=== PATIENT | male | born 1935 | race Caucasian/White ===

== ENCOUNTER 2018-10-02 09:08 | Emergency (ER) | payer OTHER, BC ==
[2018-10-02 10:10] LABS: Absolute Monocytes 1.2 K/uL (0.1-1.3); Absolute Neutrophil 8.4 K/uL (1.8-8.0); Basophils % 0.6 % (0-1.3); Eosinophils % 0.4 % (0-4.4); Hematocrit 40.7 % (39.6-49.0); Lymphocytes % 9.3 % (15.3-44.8); MPV 8.5 fL (7.6-11.3); Monocytes % 11.1 % (3.3-12.3); RBC Red Blood Cell Count 4.68 M/uL (4.33-5.43)
[2018-10-02] MEDS ORDERED: NA CHLORIDE 0.9% 1,000 ML ONE (10:24)
[2018-10-02 10:30] LABS: Albumin 3.1 g/dL (3.4-5.0); Bilirubin Direct 0.2 mg/dL (0-0.2); Bilirubin Total 0.9 mg/dL (0.2-1.0); Potassium 3.4 mmol/L (3.5-5.1); Protein, Total 6.2 g/dL (6.4-8.2)
[2018-10-02] MEDS ORDERED: NA CHLORIDE 0.9% 500 ML ONE (11:07)
--- NOTE | 2018-10-02 11:34 | RAD REPORT ---
EXAM DESCRIPTION: CT - Abdomen Pelvis W Contrast - 10/02/2018 11:01 am CLINICAL HISTORY: Abdominal pain with diarrhea COMPARISON: 2016 TECHNIQUE: Computed axial tomography of the abdomen pelvis was obtained. 100 cc Isovue-300 was admin istered intravenously. Oral contrast was not requested which limits evaluation of bowel. All CT scans are performed using dose optimization technique as appropriate and may include automated exposure control or mA/KV adjustment according to patient size. 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 Small hepatic cysts. The spleen, adrenals and right kidney are unremarkable. 13 millimeter low to intermediate density left renal mass slightly increased in size from the prior e xam in which it measured 12 millimeters Pancreatic tail is absent. 7 millimeter cystic mass within the pancreatic body is unchanged. . A tiny right inguinal hernia contains fat. The prostate gland is moderately enlarged. Postsurgical changes of a left inguinal hernia repair are seen. Minimal stranding adjacent to the sigmoid colon. Diverticulosis IMPRESSION: Minimal sigmoid diverticulosis Slight enlargement of a 13 millimeter left renal mass. Mass was previously shown to enhance. This may represent a cystic neoplasm. . Stable 7 millimeter cystic mass pancreas
--- NOTE | 2018-10-02 11:41 | ER ---
Nurse's Notes [facility] Name: Harsh Crowley Age: 83 yrs Sex: Male : 1935 Arrival Date: 10/02/2018 Time: 09:10 Bed 18 Private MD: Dinorah Lacy C Diagnosis: Diarrhea, unspecified;Dehydration Presentation: 10/02 09:19 Presenting complaint: Patient states: diarrhea for a while, was seen at Dr. Cedeño's iw office , had labs and stool sample drawn, still having diarrhea, not eating much, feeling worse. Transition of care: patient was not received from another setting of care. Onset of symptoms was September 10, 2018. Risk Assessment: Do you want to hurt yourself or someone else? Patient reports no desire to harm self or others. Initial Sepsis Screen: Does the patient meet any 2 criteria? No. Patient's initial sepsis screen is negative. Does the patient have a suspected source of infection? No. Patient's initial sepsis screen is negative. Care prior to arrival: None. 09:19 Method Of Arrival: Ambulatory iw 09:19 Acuity: KRISTEN 3 iw 09:24 Note was started on antibiotics. iw Triage Assessment: 09:28 General: Appears in no apparent distress. comfortable, slender, Behavior is bp cooperative, appropriate for age, anxious. Pain: Denies pain. EENT: No deficits noted. Neuro: Level of Consciousness is awake, alert, obeys commands, Oriented to Appropriate for age. Cardiovascular: No deficits noted. Respiratory: Airway is patent Respiratory effort is even, unlabored, Respiratory pattern is regular, symmetrical. GI: Reports diarrhea. : No signs and/or symptoms were reported regarding the genitourinary system. Derm: No deficits noted. Musculoskeletal: Circulation, motion, and sensation intact. Range of motion: intact in all extremities. Historical: - Allergies: 09:23 Prevacid; iw - Home Meds: 09:23 losartan-hydrochlorothiazide 50-12.5 mg oral tab 1 tab once daily [Active]; carvedilol iw 6.25 mg Oral tab 1 tab 2 times per day [Active]; amlodipine oral 5mg NEEDED if Systolic B.P is over 150 [Active]; alprazolam 0.25 mg Oral tab 1 tab QHS [Active]; Ocuvite Adult +50 1 Capsule daily Oral [Active]; famotidine 40 mg Oral tab 1 tab once daily [Active]; Claritin 10 mg Oral tab 1 tab once daily [Active]; - PMHx: 09:23 Anxiety; GERD; Hypertension; iw - PSHx: 09:23 Hernia repair; Tonsillectomy; prostate; iw - Immunization history:: Adult Immunizations up to date. - Social history:: Smoking status: Patient/guardian denies using tobacco. - Ebola Screening: : Patient negative for fever greater than or equal to 101.5 degrees Fahrenheit, and additional compatible Ebola Virus Disease symptoms Patient denies exposure to infectious person Patient denies travel to an Ebola-affected area in the 21 days before illness onset No symptoms or risks identified at this time. Screenin:30 Abuse screen: Denies threats or abuse. Denies injuries from another. Nutritional bp screening: No deficits noted. Tuberculosis screening: No symptoms or risk factors identified. Fall Risk None identified. Assessment: 09:32 General: SEE TRIAGE NOTE. bp 10:24 Reassessment: IVF INFUSING, LAB RESULTS PENDING. bp 10:57 Reassessment: PT TO CT WITH TARE WORKER. bp 12:13 Reassessment: PT D/C HOME AMBULATORY WITH FAMILY, DX WITH DIARRHEA. bp Vital Signs: 09:23 BP 124 / 63; Pulse 66; Resp 16; Temp 98.4; Pulse Ox 96% on R/A; Weight 57.15 kg; Height iw 5 ft. 9 in. (175.26 cm); Pain 0/10; 10:24 BP 116 / 56; Pulse 66; Resp 14; Pulse Ox 99% ; bp 11:33 BP 107 / 47; Pulse 71; Resp 17; Temp 98.7(TE); Pulse Ox 98% on R/A; mh5 12:13 BP 107 / 52; Pulse 65; Resp 16; Temp 98; Pulse Ox 98% ; bp 09:23 Body Mass Index 18.61 (57.15 kg, 175.26 cm) iw ED Course: 09:10 Patient arrived in ED. as 09:10 Dinorah Lacy MD is Private Physician. as 09:21 Triage completed. iw 09:23 Arm band placed on. iw 09:26 Elías Hernandez RN is Primary Nurse. bp 09:30 Darrion Wisdom MD is Attending Physician. gs 09:30 Patient has correct armband on for positive identification. Bed in low position. Call bp light in reach. Side rails up X2. 10:04 Inserted saline lock: 20 gauge in right forearm, using aseptic technique. Blood bp collected. 11:02 CT completed. Patient tolerated procedure well. Patient moved back from CT. bq 11:04 CT Abd/Pelvis - IV Contrast Only In Process Unspecified. EDMS 12:14 No provider procedures requiring assistance completed. IV discontinued, intact, bp bleeding controlled, No redness/swelling at site. Pressure dressing applied. Administered Medications: 10:10 Drug: NS 0.9% 1000 ml Route: IV; Rate: 1 bolus; Site: right forearm; bp 12:14 Follow up: IV Status: Completed infusion; IV Intake: 1000ml bp 10:45 Drug: NS 0.9% 500 ml Route: IV; Rate: bolus; Site: right forearm; bp 12:15 Follow up: IV Status: Completed infusion; IV Intake: 500ml bp Intake: 12:14 IV: 1000ml; Total: 1000ml. bp 12:15 IV: 500ml; Total: 1500ml. bp Outcome: 11:40 Discharge ordered by . gs 12:14 Discharged to home ambulatory, with family. bp 12:14 Condition: stable 12:14 Discharge instructions given to patient, Instructed on discharge instructions, follow up and referral plans. Demonstrated understanding of instructions, follow-up care. 12:15 Patient left the ED. bp Signatures: Dispatcher [employer] EDMS Gayle Garcia Amelia as Williams, Irene, RN RN iw Martinez, [facility] Darrion Wisdom MD MD gs Peltier, Brian, RN RN bp
--- NOTE | 2018-10-02 11:41 | EDPHYS ---
Physician Documentation [facility] Name: Harsh Crowley Age: 83 yrs Sex: Male : 1935 Arrival Date: 10/02/2018 Time: 09:10 Bed 18 Private MD: Dinorah Lacy C ED Physician Darrion Wisdom HPI: 10/02 12:59 This 83 yrs old Male presents to ER via Ambulatory with complaints of gs Diarrhea. 12:59 The patient presents to the emergency department with diarrhea. Onset: The gs symptoms/episode began/occurred 3 week(s) ago, and became persistent. Possible causes: unknown. The symptoms are aggravated by nothing. The symptoms are alleviated by nothing. Associated signs and symptoms: Pertinent negatives: constipation, fever, GI bleeding, vomiting. Severity of symptoms: At their worst the symptoms were severe in the emergency department the symptoms are unchanged. The patient has not experienced similar symptoms in the past. The patient has been recently seen by a physician: Dr. regalado with similar presenting complaints, was given a prescription for antibiotics. Historical: - Allergies: 09: Prevacid; iw - Home Meds: : losartan-hydrochlorothiazide 50-12.5 mg oral tab 1 tab once daily [Active]; carvedilol iw 6.25 mg Oral tab 1 tab 2 times per day [Active]; amlodipine oral 5mg NEEDED if Systolic B.P is over 150 [Active]; alprazolam 0.25 mg Oral tab 1 tab QHS [Active]; Ocuvite Adult +50 1 Capsule daily Oral [Active]; famotidine 40 mg Oral tab 1 tab once daily [Active]; Claritin 10 mg Oral tab 1 tab once daily [Active]; - PMHx: 09: Anxiety; GERD; Hypertension; iw - PSHx: 09:23 Hernia repair; Tonsillectomy; prostate; iw - Immunization history:: Adult Immunizations up to date. - Social history:: Smoking status: Patient/guardian denies using tobacco. - Ebola Screening: : Patient negative for fever greater than or equal to 101.5 degrees Fahrenheit, and additional compatible Ebola Virus Disease symptoms Patient denies exposure to infectious person Patient denies travel to an Ebola-affected area in the 21 days before illness onset No symptoms or risks identified at this time. ROS: 12:59 All other systems are negative. gs Exam: 12:59 Head/Face: Normocephalic, atraumatic. Eyes: Pupils equal round and reactive to light, gs extra-ocular motions intact. Lids and lashes normal. Conjunctiva and sclera are non-icteric and not injected. Cornea within normal limits. Periorbital areas with no swelling, redness, or edema. ENT: Nares patent. No nasal discharge, no septal abnormalities noted. Tympanic membranes are normal and external auditory canals are clear. Oropharynx with no redness, swelling, or masses, exudates, or evidence of obstruction, uvula midline. Mucous membranes moist. Neck: Trachea midline, no thyromegaly or masses palpated, and no cervical lymphadenopathy. Supple, full range of motion without nuchal rigidity, or vertebral point tenderness. No Meningismus. Chest/axilla: Normal chest wall appearance and motion. Nontender with no deformity. No lesions are appreciated. Cardiovascular: Regular rate and rhythm with a normal S1 and S2. No gallops, murmurs, or rubs. Normal PMI, no JVD. No pulse deficits. Respiratory: Lungs have equal breath sounds bilaterally, clear to auscultation and percussion. No rales, rhonchi or wheezes noted. No increased work of breathing, no retractions or nasal flaring. Abdomen/GI: Soft, non-tender, with normal bowel sounds. No distension or tympany. No guarding or rebound. No evidence of tenderness throughout. Back: No spinal tenderness. No costovertebral tenderness. Full range of motion. Skin: Warm, dry with normal turgor. Normal color with no rashes, no lesions, and no evidence of cellulitis. MS/ Extremity: Pulses equal, no cyanosis. Neurovascular intact. Full, normal range of motion. Neuro: Awake and alert, GCS 15, oriented to person, place, time, and situation. Cranial nerves II-XII grossly intact. Motor strength 5/5 in all extremities. Sensory grossly intact. Cerebellar exam normal. Normal gait. 12:59 Constitutional: The patient appears alert, awake. Vital Signs: 09:23 BP 124 / 63; Pulse 66; Resp 16; Temp 98.4; Pulse Ox 96% on R/A; Weight 57.15 kg; Height iw 5 ft. 9 in. (175.26 cm); Pain 0/10; 10:24 BP 116 / 56; Pulse 66; Resp 14; Pulse Ox 99% ; bp 11:33 BP 107 / 47; Pulse 71; Resp 17; Temp 98.7(TE); Pulse Ox 98% on R/A; mh5 12:13 BP 107 / 52; Pulse 65; Resp 16; Temp 98; Pulse Ox 98% ; bp 09:23 Body Mass Index 18.61 (57.15 kg, 175.26 cm) iw MDM: 09:50 Patient medically screened. gs 12:59 Differential diagnosis: gastritis, viral gastroenteritis, gastroenteritis. Data gs reviewed: vital signs, nurses notes. Counseling: I had a detailed discussion with the patient and/or guardian regarding: the historical points, exam findings, and any diagnostic results supporting the discharge/admit diagnosis, lab results, radiology results, the need for outpatient follow up, a director diabetes. Response to treatment: the patient's symptoms have markedly improved after treatment, patient is well hydrated. and as a result, I will discharge patient. 10/02 09:50 Order name: Basic Metabolic Panel; Complete Time: 10:37 10/02 09:50 Order name: CBC with Diff; Complete Time: 10:37 10/02 09:50 Order name: Hepatic Function; Complete Time: 10:37 10/02 09:50 Order name: Lipase; Complete Time: 10:37 10/02 10:38 Order name: CT Abd/Pelvis - IV Contrast Only; Complete Time: 11:36 10/02 09:50 Order name: IV Saline Lock; Complete Time: 10:05 10/02 09:50 Order name: Labs collected and sent; Complete Time: 10:06 Administered Medications: 10:10 Drug: NS 0.9% 1000 ml Route: IV; Rate: 1 bolus; Site: right forearm; bp 12:14 Follow up: IV Status: Completed infusion; IV Intake: 1000ml bp 10:45 Drug: NS 0.9% 500 ml Route: IV; Rate: bolus; Site: right forearm; bp 12:15 Follow up: IV Status: Completed infusion; IV Intake: 500ml bp Disposition: 10/02/18 11:40 Discharged to Home. Impression: Diarrhea, unspecified, Dehydration. - Condition is Stable. - Discharge Instructions: Diarrhea, Adult, Rehydration, Adult. - Medication Reconciliation Form, Thank You Letter, Antibiotic Education, Prescription Opioid Use form. - Follow up: Private Physician; When: 1 - 2 days; Reason: Re-evaluation by your physician. Signatures: Dispatcher [employer] Elda Linn, RN RN iw Darrion Wisdom MD MD gs Elías Hernandez RN RN bp Corrections: (The following items were deleted from the chart) 11:41 11:40 10/02/2018 11:40 Discharged to Home. Impression: Diarrhea, unspecified. Condition gs is Stable. Forms are Medication Reconciliation Form, Thank You Letter, Antibiotic Education, Prescription Opioid Use. Follow up: Private Physician; When: 1 - 2 days; Reason: Re-evaluation by your physician. gs 12:15 11:41 10/02/2018 11:40 Discharged to Home. Impression: Diarrhea, unspecified; bp Dehydration. Condition is Stable. Discharge Instructions: Diarrhea, Adult, Rehydration, Adult. Forms are Medication Reconciliation Form, Thank You Letter, Antibiotic Education, Prescription Opioid Use. Follow up: Private Physician; When: 1 - 2 days; Reason: Re-evaluation by your physician. gs
[2018-10-02 12:27] VITALS: O2SAT 98
[2018-10-02 12:28] VITALS: BP 107/52; TEMP 98
== END 2018-10-02 12:15 | disposition home or self-care (01) ==
LOC: ER 09:08
DX: E86.0 Dehydration (principal); I10 Essential (primary) hypertension; F41.9 Anxiety disorder, unspecified; K21.9 Gastro-esophageal reflux disease without esophagitis; Z88.8 Allergy status to other drugs, medicaments and biological substances
CPT/HCPCS: 96361; 85025; 80048; 36415; 80076; 83690; 74177; 96360; 99284; Q9967; J7030

== ENCOUNTER 2018-10-04 01:38 | Emergency (ER) | payer OTHER, BC ==
[2018-10-04] MEDS ORDERED: METHYLPREDNISOLONE 125 MG INJ ONE (02:21)
[2018-10-04] MEDS ORDERED: DIPHENHYDRAMINE 50 MG/ML VIAL ONE (02:21)
[2018-10-04] MEDS ORDERED: FAMOTIDINE 20 MG/2 ML VIAL IV ONE (02:21)
--- NOTE | 2018-10-04 02:27 | EDPHYS ---
Physician Documentation [facility] Name: Harsh Crowley Age: 83 yrs Sex: Male : 1935 Arrival Date: 10/04/2018 Time: 01:40 Bed 14 Private MD: Nasim Lacy ED Physician Darrion Wisdom HPI: 10/04 01:53 This 83 yrs old Male presents to ER via Ambulatory with complaints of jr8 Allergic Reaction. 01:53 The patient presents with itching, rash, redness of skin. Onset: The symptoms/episode jr8 began/occurred acutely, today. Associated signs and symptoms: The patient has no apparent associated signs or symptoms. Possible causes: antibiotics, Vancomycin . Severity of symptoms: At their worst the symptoms were mild in the emergency department the symptoms are unchanged. The patient has not experienced similar symptoms in the past. The patient has been recently seen by a physician:. Patient started on Vancomycin PO for C-Diff infection. Stated that he took first pill at 8 pm tonight and then went to bed. Woke up at 1 am itching, tossing, and turning. Went to check to see what was wrong and noticed red rash to body. Historical: - Allergies: 01:52 Prevacid; ak1 01:52 Vancomycin; ak1 - Home Meds: 01:52 alprazolam 0.25 mg Oral tab 1 tab QHS [Active]; amlodipine oral 5mg NEEDED if ak1 Systolic B.P is over 150 [Active]; Ocuvite Adult +50 1 Capsule daily Oral [Active]; losartan-hydrochlorothiazide 50-12.5 mg Oral tab 1 tab once daily [Active]; famotidine 40 mg Oral tab 1 tab once daily [Active]; Claritin 10 mg Oral tab 1 tab once daily [Active]; carvedilol 6.25 mg Oral tab 1 tab 2 times per day [Active]; - PMHx: 01:52 Anxiety; GERD; Hypertension; C-DIFF; ak1 - PSHx: 01:52 Hernia repair; Tonsillectomy; prostate; ak1 - Immunization history:: Adult Immunizations unknown. - Social history:: Smoking status: Patient/guardian denies using tobacco. - Ebola Screening: : No symptoms or risks identified at this time No symptoms or risks identified at this time. ROS: 01:53 Constitutional: Negative for fever, chills, and weight loss. jr8 01:53 Respiratory: Negative for cough, dyspnea on exertion, shortness of breath, wheezing. 01:53 Skin: Positive for rash. 01:53 All other systems are negative. Exam: 01:53 Eyes: Pupils equal round and reactive to light, extra-ocular motions intact. Lids and jr8 lashes normal. Conjunctiva and sclera are non-icteric and not injected. Cornea within normal limits. Periorbital areas with no swelling, redness, or edema. ENT: Nares patent. No nasal discharge, no septal abnormalities noted. Tympanic membranes are normal and external auditory canals are clear. Oropharynx with no redness, swelling, or masses, exudates, or evidence of obstruction, uvula midline. Mucous membranes moist. Neck: Trachea midline, no thyromegaly or masses palpated, and no cervical lymphadenopathy. Supple, full range of motion without nuchal rigidity, or vertebral point tenderness. No Meningismus. Cardiovascular: Regular rate and rhythm with a normal S1 and S2. No gallops, murmurs, or rubs. Normal PMI, no JVD. No pulse deficits. Respiratory: Lungs have equal breath sounds bilaterally, clear to auscultation and percussion. No rales, rhonchi or wheezes noted. No increased work of breathing, no retractions or nasal flaring. Abdomen/GI: Soft, non-tender, with normal bowel sounds. No distension or tympany. No guarding or rebound. No evidence of tenderness throughout. Back: No spinal tenderness. No costovertebral tenderness. Full range of motion. MS/ Extremity: Pulses equal, no cyanosis. Neurovascular intact. Full, normal range of motion. Neuro: Awake and alert, GCS 15, oriented to person, place, time, and situation. Cranial nerves II-XII grossly intact. Motor strength 5/5 in all extremities. Sensory grossly intact. Cerebellar exam normal. Normal gait. 01:53 Skin: rash a mild rash is noted, rash can be described as erythematous, macular, urticarial, and is diffusely located. Vital Signs: 01:48 BP 126 / 60; Pulse 77; Resp 18; Temp 98.1; Pulse Ox 95% on R/A; Weight 68.04 kg (R); ak1 Height 5 ft. 9 in. (175.26 cm) (R); Pain 0/10; 02:45 BP 106 / 55; Pulse 68; Resp 18; Pulse Ox 98% on R/A; ea 01:48 Body Mass Index 22.15 (68.04 kg, 175.26 cm) ak1 MDM: 01:51 Patient medically screened. jr8 01:53 Data reviewed: vital signs, nurses notes, and as a result, I will discharge patient. jr8 Data interpreted: Pulse oximetry: on room air is 95 %. Interpretation: normal. Counseling: I had a detailed discussion with the patient and/or guardian regarding: the historical points, exam findings, and any diagnostic results supporting the discharge/admit diagnosis, the need for outpatient follow up, a family practitioner, a ctrs, to return to the emergency department if symptoms worsen or persist or if there are any questions or concerns that arise at home. Response to treatment: the patient's symptoms have markedly improved after treatment. 10/04 01:52 Order name: IV; Complete Time: :29 jr8 Administered Medications: 02:00 Drug: Pepcid 20 mg Route: IVP; Site: right antecubital; ea 02:31 Follow up: Response: No adverse reaction ea 02:00 Drug: Benadryl 25 mg Route: IVP; Site: right antecubital; ea 02:31 Follow up: Response: No adverse reaction; Other; Pt reports itching has decreased ea 02:29 Drug: SOLU-Medrol 125 mg Route: IVP; Site: right antecubital; ea 02:31 Follow up: Response: No adverse reaction ea Disposition: 10/04/18 02:26 Discharged to Home. Impression: Allergic Reaction. - Condition is Stable. - Discharge Instructions: Drug Allergy. - Prescriptions for Prednisone 20 mg Oral Tablet - take 1 tablet by ORAL route once daily for 5 days; 5 tablet. - Medication Reconciliation Form, Thank You Letter, Antibiotic Education, Prescription Opioid Use form. - Follow up: Nasim Lacy; When: Tomorrow; Reason: Recheck today's complaints, Continuance of care, Re-evaluation by your physician. - Problem is new. - Symptoms have improved. Addendum: 10/06/2018 13:03 Co-signature as Attending Physician, Darrion Wisdom MD. g s Signatures: Armando Alcocer PA PA jr8 Sade Kurtz, RN RN ak1 Ellie Parisi RN RN Darrion Cho MD MD gs Corrections: (The following items were deleted from the chart) 10/04 03:14 02:26 10/04/2018 02:26 Discharged to Home. Impression: Allergic Reaction. Condition is ea Stable. Discharge Instructions: Drug Allergy. Prescriptions for Prednisone 20 mg Oral Tablet - take 1 tablet by ORAL route once daily for 5 days; 5 tablet. and Forms are Medication Reconciliation Form, Thank You Letter, Antibiotic Education, Prescription Opioid Use. Follow up: Nasim Lacy; When: Tomorrow; Reason: Recheck today's complaints, Continuance of care, Re-evaluation by your physician. Problem is new. Symptoms have improved. jr8
--- NOTE | 2018-10-04 02:27 | ER ---
Nurse's Notes [facility] Name: Harsh Crowley Age: 83 yrs Sex: Male : 1935 Arrival Date: 10/04/2018 Time: 01:40 Bed 14 Private MD: Nasim Lacy Diagnosis: Allergic Reaction Presentation: 10/04 01:49 Presenting complaint: Patient states: took vancomycin at [address] Ornelas's PA. pt ak1 woke at 0100 with itching and redness, rash to arms, back, legs. Transition of care: patient was not received from another setting of care. Onset: The symptoms/episode began/occurred just prior to arrival. Anaphylaxis evaluation, no signs or symptoms of anaphylaxis were noted. Onset of symptoms was October 04, 2018 at 01:00. Risk Assessment: Do you want to hurt yourself or someone else? Patient reports no desire to harm self or others. Initial Sepsis Screen: Does the patient meet any 2 criteria? No. Patient's initial sepsis screen is negative. Does the patient have a suspected source of infection? No. Patient's initial sepsis screen is negative. Care prior to arrival: None. 01:49 Method Of Arrival: Ambulatory ak1 01:49 Acuity: KRISTEN 3 ak1 Triage Assessment: 01:52 General: Appears in no apparent distress. Behavior is calm, cooperative. ak1 Historical: - Allergies: 01:52 Prevacid; ak1 01:52 Vancomycin; ak1 - Home Meds: 01:52 alprazolam 0.25 mg Oral tab 1 tab QHS [Active]; amlodipine oral 5mg NEEDED if ak1 Systolic B.P is over 150 [Active]; Ocuvite Adult +50 1 Capsule daily Oral [Active]; losartan-hydrochlorothiazide 50-12.5 mg Oral tab 1 tab once daily [Active]; famotidine 40 mg Oral tab 1 tab once daily [Active]; Claritin 10 mg Oral tab 1 tab once daily [Active]; carvedilol 6.25 mg Oral tab 1 tab 2 times per day [Active]; - PMHx: 01:52 Anxiety; GERD; Hypertension; C-DIFF; ak1 - PSHx: 01:52 Hernia repair; Tonsillectomy; prostate; ak1 - Immunization history:: Adult Immunizations unknown. - Social history:: Smoking status: Patient/guardian denies using tobacco. - Ebola Screening: : No symptoms or risks identified at this time No symptoms or risks identified at this time. Screenin:50 Abuse screen: Denies threats or abuse. Nutritional screening: No deficits noted. ea Tuberculosis screening: No symptoms or risk factors identified. Fall Risk None identified. Assessment: 01:49 General: Appears uncomfortable, Behavior is calm, cooperative, appropriate for age. ea Pain: Denies pain. Neuro: Level of Consciousness is awake, alert, obeys commands, Oriented to person, place, time, situation. Cardiovascular: Patient's skin is warm and dry. Respiratory: Airway is patent Respiratory effort is even, unlabored, Respiratory pattern is regular, symmetrical. Derm: Rash noted that is urticaria. 01:55 Reassessment: Patient and/or family updated on plan of care and expected duration. Pain ea level reassessed. Patient is alert, oriented x 3, equal unlabored respirations, skin warm/dry/pink. Respiratory: Breath sounds are clear bilaterally. 02:30 Reassessment: Patient and/or family updated on plan of care and expected duration. Pain ea level reassessed. Patient is alert, oriented x 3, equal unlabored respirations, skin warm/dry/pink. Patient states feeling better. Patient states symptoms have improved. 03:10 Reassessment: Patient and/or family updated on plan of care and expected duration. Pain ea level reassessed. Patient is alert, oriented x 3, equal unlabored respirations, skin warm/dry/pink. Pt no longer has rash, denies itching. Discharge instruction given to patient, verbalized the understanding of instruction. Left ED ambulatory with spouse, pt tolerating well. Patient states feeling better. Patient states symptoms have improved. Vital Signs: 01:48 BP 126 / 60; Pulse 77; Resp 18; Temp 98.1; Pulse Ox 95% on R/A; Weight 68.04 kg (R); ak1 Height 5 ft. 9 in. (175.26 cm) (R); Pain 0/10; 02:45 BP 106 / 55; Pulse 68; Resp 18; Pulse Ox 98% on R/A; ea 01:48 Body Mass Index 22.15 (68.04 kg, 175.26 cm) ak1 ED Course: 01:40 Patient arrived in ED. am2 01:40 Lacy, Nasim, MD is Private Physician. am2 01:49 Ellie Parisi, DOMINGO is Primary Nurse. ea 01:50 Triage completed. ak1 01:51 Armando Alcocer [facility]. jr8 01:51 Darrion Wisdom MD is Attending Physician. jr8 01:51 Patient has correct armband on for positive identification. Bed in low position. Call ea light in reach. Side rails up X 1. 01:51 Arm band placed on Patient placed in an exam room, on a stretcher, on pulse oximetry. ea 02:00 Inserted saline lock: 20 gauge in right antecubital area, using aseptic technique. ea 02:26 Nasim Lacy MD is Referral Physician. jr8 03:00 No provider procedures requiring assistance completed. IV discontinued, intact, ea bleeding controlled, No redness/swelling at site. Pressure dressing applied. Administered Medications: 02:00 Drug: Pepcid 20 mg Route: IVP; Site: right antecubital; ea 02:31 Follow up: Response: No adverse reaction ea 02:00 Drug: Benadryl 25 mg Route: IVP; Site: right antecubital; ea 02:31 Follow up: Response: No adverse reaction; Other; Pt reports itching has decreased ea 02:29 Drug: SOLU-Medrol 125 mg Route: IVP; Site: right antecubital; ea 02:31 Follow up: Response: No adverse reaction ea Intake: Outcome: 02:26 Discharge ordered by MD. jr8 03:13 Discharged to home ambulatory, with significant other. ea 03:13 Condition: improved 03:13 Discharge instructions given to patient, Instructed on discharge instructions, follow up and referral plans. medication usage, Demonstrated understanding of instructions, follow-up care, medications, Prescriptions given X 1. 03:14 Patient left the ED. ea Signatures: Armando Alcocer PA PA jr8 aSde Kurtz RN DOMINGO [facility] Kim Ayon am2 Ellie Parisi RN RN ea
[2018-10-04 03:59] VITALS: TEMP 98.1
[2018-10-04 04:06] VITALS: BP 106/55; O2SAT 98
== END 2018-10-04 03:14 | disposition home or self-care (01) ==
LOC: ER 01:38
DX: T78.40XA Allergy, unspecified, initial encounter (principal); R21 Rash and other nonspecific skin eruption; Z88.1 Allergy status to other antibiotic agents; Z88.8 Allergy status to other drugs, medicaments and biological substances; F41.9 Anxiety disorder, unspecified; K21.9 Gastro-esophageal reflux disease without esophagitis; I10 Essential (primary) hypertension
CPT/HCPCS: 96375; 96374; 99284; J2930

== ENCOUNTER 2018-10-26 02:47 | Inpatient (IN) | payer OTHER, BC ==
[2018-10-26 04:20] LABS: Albumin 3.1 g/dL (3.4-5.0); Bilirubin Direct 0.3 mg/dL (0-0.2); Bilirubin Total 1.1 mg/dL (0.2-1.0); Potassium 3.5 mmol/L (3.5-5.1); Protein, Total 6.3 g/dL (6.4-8.2)
[2018-10-26 04:21] LABS: Absolute Lymphocytes (CBC) 1.1 K/uL (0.7-4.9); Basophils % 0.2 % (0-1.3); Eosinophils % 0.6 % (0-4.4); Hematocrit 40.6 % (39.6-49.0); Lymphocytes % 9.2 % (15.3-44.8); MPV 8.4 fL (7.6-11.3); Monocytes % 11.6 % (3.3-12.3); RBC Red Blood Cell Count 4.66 M/uL (4.33-5.43)
--- NOTE | 2018-10-26 05:48 | EDPHYS ---
Physician Documentation [facility] Name: Harsh Crowley Age: 83 yrs Sex: Male : 1935 Arrival Date: 10/26/2018 Time: 02:48 Bed 14 Private MD: ED Physician River Barnett HPI: 10/26 03:14 This 83 yrs old Male presents to ER via Ambulatory with complaints of rn Diarrhea. 03:14 The patient presents to the emergency department with diarrhea. Onset: The rn symptoms/episode began/occurred 2 day(s) ago. Possible causes: unknown. The symptoms are aggravated by nothing. The symptoms are alleviated by nothing. Severity of symptoms: At their worst the symptoms were moderate in the emergency department the symptoms are unchanged. The patient has experienced similar episodes in the past. Reports was having diarrhea, put on abx, told then by GI had cdiff, put on abx for cdiff, then told was clear after repeat testing, stopped abx, felt a little better, then began having non-bloody diarrhea again, called GI, told to eat potato soup which did not help. states she is concerned all began from stress when son had hemorrhagic stroke. Patient very anxious and already on benzo at night which does not seem to help. Has next GI appt in 1 week.. Historical: - Allergies: 03:04 Prevacid; ea 03:04 Vancomycin; ea - Home Meds: 03:04 alprazolam 0.25 mg Oral tab 1 tab QHS [Active]; amlodipine oral 5mg NEEDED if ea Systolic B.P is over 150 [Active]; carvedilol 6.25 mg Oral tab 1 tab 2 times per day [Active]; Claritin 10 mg Oral tab 1 tab once daily [Active]; famotidine 40 mg Oral tab 1 tab once daily [Active]; losartan-hydrochlorothiazide 50-12.5 mg Oral tab 1 tab once daily [Active]; Ocuvite Adult +50 1 Capsule daily Oral [Active]; - PMHx: 03:04 Hypertension; GERD; C-diff; Anxiety; ea - PSHx: 03:04 prostate; Tonsillectomy; Hernia repair; ea - Immunization history:: Adult Immunizations up to date. - Social history:: Smoking status: Patient/guardian denies using tobacco. - Ebola Screening: : No symptoms or risks identified at this time. - Family history:: not pertinent. - Hospitalizations: : No recent hospitalization is reported. ROS: 03:14 Constitutional: Negative for fever, chills, and weight loss, Eyes: Negative for injury, rn pain, redness, and discharge, Neck: Negative for injury, pain, and swelling, Cardiovascular: Negative for chest pain, palpitations, and edema, Respiratory: Negative for shortness of breath, cough, wheezing, and pleuritic chest pain, Abdomen/GI: Negative for abdominal pain, nausea, vomiting, and constipation, MS/Extremity: Negative for injury and deformity, Skin: Negative for injury, rash, and discoloration, Neuro: + generalized weakness Exam: 03:14 Constitutional: Thin male, appears anxious Head/Face: Normocephalic, atraumatic. rn Eyes: Pupils equal round and reactive to light, extra-ocular motions intact. Lids and lashes normal. Conjunctiva and sclera are non-icteric and not injected. Cornea within normal limits. Periorbital areas with no swelling, redness, or edema. ENT: dry MM Cardiovascular: tachycardic, regular, no murmur Respiratory: Lungs have equal breath sounds bilaterally, clear to auscultation Abdomen/GI: soft, non-tender MS/ Extremity: Pulses equal, no cyanosis. Neurovascular intact. Full, normal range of motion. Equal circumference. Neuro: Awake and alert, GCS 15, oriented to person, place, time, and situation. Cranial nerves II-XII grossly intact. Motor strength 5/5 in all extremities. Sensory grossly intact. Cerebellar exam normal. Normal gait. Vital Signs: 03:00 BP 117 / 80; Pulse 104; Resp 16; Temp 97.8; Pulse Ox 100% ; Weight 56.7 kg; Height 5 ea ft. 7 in. (170.18 cm); Pain 0/10; 04:24 BP 102 / 86; Pulse 106; Resp 18; Pulse Ox 97% on R/A; ea 05:28 BP 121 / 64; Pulse 84; Resp 18; Pulse Ox 95% ; ea 05:34 Temp 98.5(O); ea 06:52 BP 150 / 68; Pulse 83; Resp 18; Pulse Ox 96% ; ea 03:00 Body Mass Index 19.58 (56.70 kg, 170.18 cm) ea MDM: 02:55 Patient medically screened. rn 05:45 Differential diagnosis: colitis. Data reviewed: vital signs, nurses notes, lab test rn result(s), radiologic studies, CT scan, and as a result, I will admit patient. Counseling: I had a detailed discussion with the patient and/or guardian regarding: the historical points, exam findings, and any diagnostic results supporting the discharge/admit diagnosis, lab results, radiology results, the need for further work-up and treatment in the hospital. Response to treatment: the patient's symptoms have mildly improved after treatment, and as a result, I will admit patient. ED course: Pt with prolonged course of colitis, cdiff, s/p treatment, continues to have profuse and watery diarrhea with weakness, ct shows colitis of entire colon, + dehydration, will admit to Dr. Lacy. Will place consult for Dr. Cedeño as he has been the outpt GI for this patient through this ordeal.. 10/26 03:07 Order name: Creatinine for Radiology; Complete Time: 04:53 rn 10/26 03:07 Order name: Basic Metabolic Panel; Complete Time: 04:53 rn 10/26 03:07 Order name: CBC with Diff; Complete Time: 04:53 rn 10/26 03:07 Order name: Hepatic Function; Complete Time: 04:53 rn 10/26 03:07 Order name: Lipase; Complete Time: 04:53 rn 10/26 03:07 Order name: IV Saline Lock; Complete Time: 03:46 rn 10/26 03:07 Order name: Labs collected and sent; Complete Time: 03:46 rn 10/26 03:07 Order name: CT Abd/Pelvis - IV Contrast Only rn 10/26 05:45 Order name: CDIFF rn 10/26 05:45 Order name: Stool Culture rn 10/26 05:55 Order name: CONS Physician Consult EDMS Administered Medications: 03:20 Drug: NS 0.9% 1000 ml Route: IV; Rate: 1000 ml; Site: right forearm; ea 04:19 Follow up: Response: No adverse reaction; IV Status: Completed infusion; IV Intake: ea 1000ml Disposition: 10/26/18 05:48 Hospitalization ordered by Dinorah Lacy for Inpatient Admission. Preliminary diagnosis are Colitis, Dehydration, Weakness, Failure of outpatient therapy for colitis. - Bed requested for Telemetry/MedSurg (Inpatient). - Status is Inpatient Admission. sg - Condition is Stable. - Problem is an ongoing problem. - Symptoms have improved. UTI on Admission? No Signatures: Dispatcher [employer] EDMT Joy Austin RN RN mw Gay, Steven, RN RN sg Nieto, Roman, MD MD rn Antunez, Elena, RN RN ea Corrections: (The following items were deleted from the chart) 04:34 04:01 BASIC METABOLIC PANEL+C.LAB.BRZ ordered. [facility] 06:22 05:48 Hospitalization Ordered by A Regino THOMPSON for Inpatient Admission. Preliminary diagnosis is Colitis; Dehydration; Weakness; Failure of outpatient therapy for colitis. Bed requested for Telemetry/MedSurg (Inpatient). Status is Inpatient Admission. Condition is Stable. Problem is an ongoing problem. Symptoms have improved. UTI on Admission? No. rn 07:41 06:22 10/26/2018 05:48 Hospitalization Ordered by A Regino THOMPSON for Inpatient Admission. sg Preliminary diagnosis is Colitis; Dehydration; Weakness; Failure of outpatient therapy for colitis. Bed requested for Telemetry/MedSurg (Inpatient). Status is Inpatient Admission. Condition is Stable. Problem is an ongoing problem. Symptoms have improved. UTI on Admission? No. mw
--- NOTE | 2018-10-26 05:48 | ER ---
Nurse's Notes [facility] Name: Harsh Crowley Age: 83 yrs Sex: Male : 1935 Arrival Date: 10/26/2018 Time: 02:48 Bed 14 Private MD: Diagnosis: Colitis;Dehydration;Weakness;Failure of outpatient therapy for colitis Presentation: 10/26 03:06 Risk Assessment: Do you want to hurt yourself or someone else? Patient reports no ea desire to harm self or others. Initial Sepsis Screen: Does the patient meet any 2 criteria? HR > 90 bpm. Does the patient have a suspected source of infection? No. Patient's initial sepsis screen is negative. Care prior to arrival: None. 03:10 Presenting complaint: Patient states: Reports he has been having diarrhea one month ea prior to arrival due to Cdiff, pt reports that has been cleared but he continues to have diarrhea. reports she feels it may be stress related. Transition of care: patient was not received from another setting of care. Onset of symptoms was October 26, 2018. 03:10 Acuity: KRISTEN 3 ea 03:10 Method Of Arrival: Ambulatory ea Triage Assessment: 03:05 General: Appears in no apparent distress. Behavior is calm, cooperative, appropriate ea for age. Pain: Denies pain. GI: Parent/caregiver reports the patient having diarrhea. Historical: - Allergies: 03:04 Prevacid; ea 03:04 Vancomycin; ea - Home Meds: 03:04 alprazolam 0.25 mg Oral tab 1 tab QHS [Active]; amlodipine oral 5mg NEEDED if ea Systolic B.P is over 150 [Active]; carvedilol 6.25 mg Oral tab 1 tab 2 times per day [Active]; Claritin 10 mg Oral tab 1 tab once daily [Active]; famotidine 40 mg Oral tab 1 tab once daily [Active]; losartan-hydrochlorothiazide 50-12.5 mg Oral tab 1 tab once daily [Active]; Ocuvite Adult +50 1 Capsule daily Oral [Active]; - PMHx: 03:04 Hypertension; GERD; C-diff; Anxiety; ea - PSHx: 03:04 prostate; Tonsillectomy; Hernia repair; ea - Immunization history:: Adult Immunizations up to date. - Social history:: Smoking status: Patient/guardian denies using tobacco. - Ebola Screening: : No symptoms or risks identified at this time. - Family history:: not pertinent. - Hospitalizations: : No recent hospitalization is reported. Screenin:59 Abuse screen: Denies threats or abuse. Nutritional screening: No deficits noted. ea Tuberculosis screening: No symptoms or risk factors identified. Fall Risk None identified. Assessment: 03:06 General: Appears in no apparent distress. Behavior is calm, appropriate for age. Pain: ea Denies pain. Neuro: Level of Consciousness is awake, alert, obeys commands, Oriented to person, place, time, situation. Cardiovascular: Patient's skin is warm and dry. Respiratory: Airway is patent Respiratory effort is even, unlabored, Respiratory pattern is regular, symmetrical. GI: Abdomen is non-distended, Parent/caregiver reports the patient having diarrhea. : No signs and/or symptoms were reported regarding the genitourinary system. Derm: Skin is pink, warm \T\ dry. Musculoskeletal: Circulation, motion, and sensation intact. 04:26 Reassessment: Patient and/or family updated on plan of care and expected duration. Pain ea level reassessed. Patient is alert, oriented x 3, equal unlabored respirations, skin warm/dry/pink. Pt taken to CT. 05:09 Reassessment: Patient and/or family updated on plan of care and expected duration. Pain ea level reassessed. Patient is alert, oriented x 3, equal unlabored respirations, skin warm/dry/pink. Pt returned form CT. 05:45 Reassessment: Patient and/or family updated on plan of care and expected duration. Pain ea level reassessed. Patient is alert, oriented x 3, equal unlabored respirations, skin warm/dry/pink. Provider at bedside updating pt on plan of care. 06:50 Reassessment: Patient and/or family updated on plan of care and expected duration. Pain ea level reassessed. Patient is alert, oriented x 3, equal unlabored respirations, skin warm/dry/pink. Stool sample sent to lab. 07:20 Reassessment: Patient appears in no apparent distress at this time. Patient and/or sg family updated on plan of care and expected duration. Pain level reassessed. Patient is alert, oriented x 3, equal unlabored respirations, skin warm/dry/pink. pt reports having diarrhea this morning x 3, pt updated on attempt to call report but receiving nurse not available at this time, pt and pt family stated understanding. will continue to monitor Patient states feeling better. Vital Signs: 03:00 BP 117 / 80; Pulse 104; Resp 16; Temp 97.8; Pulse Ox 100% ; Weight 56.7 kg; Height 5 ea ft. 7 in. (170.18 cm); Pain 0/10; 04:24 BP 102 / 86; Pulse 106; Resp 18; Pulse Ox 97% on R/A; ea 05:28 BP 121 / 64; Pulse 84; Resp 18; Pulse Ox 95% ; ea 05:34 Temp 98.5(O); ea 06:52 BP 150 / 68; Pulse 83; Resp 18; Pulse Ox 96% ; ea 03:00 Body Mass Index 19.58 (56.70 kg, 170.18 cm) ea ED Course: 02:48 Patient arrived in ED. ds1 02:55 River Barnett MD is Attending Physician. rn 02:59 Ellie Parisi RN is Primary Nurse. ea 02:59 Patient has correct armband on for positive identification. Bed in low position. Call ea light in reach. Adult w/ patient. 03:00 Arm band placed on right wrist. Patient placed in an exam room, on a stretcher, on ea pulse oximetry. 03:12 Triage completed. ea 03:15 Inserted saline lock: 18 gauge in right forearm, using aseptic technique. Blood ea collected. 04:51 CT Abd/Pelvis - IV Contrast Only In Process Unspecified. EDMS 05:47 Dinorah Lacy MD is Hospitalizing Provider. rn 06:08 No provider procedures requiring assistance completed. Patient admitted, IV remains in ea place. Administered Medications: 03:20 Drug: NS 0.9% 1000 ml Route: IV; Rate: 1000 ml; Site: right forearm; ea 04:19 Follow up: Response: No adverse reaction; IV Status: Completed infusion; IV Intake: ea 1000ml Intake: 04:19 IV: 1000ml; Total: 1000ml. ea Output: 07:20 Urine: 200ml (Voided); Total: 200ml. sg Outcome: 05:48 Decision to Hospitalize by Provider. rn 06:08 Instructed on the need for admit, Demonstrated understanding of instructions. ea 07:36 Admitted to Tele accompanied by tech, family with patient, via wheelchair, room 410, sg with chart, Report called to Michelle LANE 07:36 Condition: stable 07:41 Patient left the ED. sg Signatures: Dispatcher [employer] Castro Jmaes RN RN sg Sanford, Demi ds1 River Barnett MD MD rn Antunez, Elena, RN RN ea Corrections: (The following items were deleted from the chart) 03:05 03:00 BP 117 / 80; Pulse 104bpm; Resp 16bpm; Pulse Ox 100%; ea ea
[2018-10-26] MEDS ORDERED: ONDANSETRON 4 MG/2 ML VIAL IV PRN (08:06)
[2018-10-26] MEDS: NA CHLORIDE 0.9% 1,000 ML IV SCH ×2 (08:58→17:09)
[2018-10-26 09:58] LABS: Urine Appearance CLEAR; Urine Bilirubin NEGATIVE (NEG); Urine Blood NEGATIVE (NEG); Urine Color YELLOW; Urine Glucose NEGATIVE (NEG); Urine Protein NEGATIVE (NEG); Urine Specific Gravity >=1.030 (1.005-1.030); Urine Urobilinogen 0.2 mg/dL (0.2-1.0)
--- NOTE | 2018-10-26 10:05 | RAD REPORT ---
EXAM DESCRIPTION: CT ABDOMEN AND PELVIS WITH CONTRAST. 10/26/2018. CLINICAL HISTORY: Diarrhea. Abdominal pain. COMPARISON: CT abdomen and pelvis with contrast 10/02/2018. TECHNIQUE: Axial [address] imaging of the abdomen and pelvis performed utilizing intravenous contrast. Reformatted coronal and sagittal images reviewed. A dose reduction technique was utilized with automated exposure control according to patient size. FINDINGS: LOWER THORAX: There is left greater than right lower lobe atelectasis. There is right mid dle lobe atelectasis. There is a 1.8 cm ill-defined nodular opacity in the right lower lobe which has increased which may represent a small focus of pneumonitis with atelectasis. The heart is normal in size. There is marked compression upon the anterior wall of the right atrium and ventricle by a sever e pectus excavatum deformity. AP diameter of the intrathoracic space at this level is 4.4 cm between the sternum and anterior vertebral body margin. ABDOMEN: LIVER/GALLBLADDER: The liver is normal in size. There are several hypodensities throughout the liver compatible with benign cysts. Largest is in the superior right lobe, 1.5 cm. Unremarkable gallbladde r. SPLEEN/PANCREAS: Normal spleen. The distal pancreatic body and tail are not visualized and may have been surgically resected. There is a 1.0 cm fluid density focus in the anterior inferior margin of th e pancreatic body which may represent a cyst or ductal ectasia. KIDNEYS/ADRENAL GLANDS: Normal adrenal glands. Unremarkable right kidney. Posterior left renal 1.2 c m cyst. No hydronephrosis or stone either kidney. RETROPERITONEAL VESSELS/NODES: Mild aortic atherosclerosis. Normal caliber inferior vena cava. No ad enopathy. Mesenteric vessels appear normal. BOWEL: Small hiatal hernia. Normal remaining stomach. Small bowel loops appear normal. Appendix is n ot visualized. There is thickening of the cecum and ascending colon with pericolonic edema. There is thickening of the sigmoid diffusely with perisigmoid hyperemia and mild edema. A few scattered sigmoi d colon diverticula are present without diverticulitis. MESENTERY/PERITONEUM: No adenopathy. No free air. No ascites. PELVIS: BLADDER: Unremarkable bladder. GENITAL ORGANS: The prostate is 5.0 x 3.5 x 4.4 cm. PERITONEUM: No pelvic free fluid or adenopathy. BONES AND SOFT TISSUES: Normal lumbar lordosis. Mild L4-5 diffuse disc bulge. No subluxation. Intact bony pelvis. Normal hips. Left groin surgical clips from prior hernia repair. IMPRESSION: 1. Colitis involving the cecum, ascending colon, and sigmoid colon. No evidence of perfo ration or abscess. 2. Mild sigmoid colon diverticulosis. No diverticulitis. 3. Hepatic and left renal cysts. 4. Indeterminate right lower lobe 1.8 cm noncalcified nodule is increased in size and may represent a small focus of pneumonitis with atelectasis. 5. Severe pectus excavatum. 6. Prostatomegaly. 2017 Fleischner Society Recommendations for Multiple Solid Lung Nodules Follow-Up base on size (avera ge of long- and short-axis diameters). Use most suspicious nodule for followup. Nodule Size Nodule Size Nodule Size 6-8 mm Low-Risk Patient: CT at 3-[address] at 18-24 months Nodule Size 6-8 mm High-Risk Patient: CT at 3-6 months then at 18-24 months Nodule Size (mm) >8 Low-Risk Patient: CT at 3-6 months, then consider CT at 18-24 months Nodule Size (mm) >8 High-Risk Patient: CT at 3-6 months, then at 18-24 months Electronically signed by: Lainey Salomon DO 10/26/2018 5:28 AM CDT Due to temporary technical issues with the PACS/Fluency reporting system, reports are being signed by the in house radiologist as a courtesy to ensure prompt reporting. The interpreting radiologist is f ully responsible for the content of the report.
[2018-10-26 10:14] LABS: Urine Microscopic Reflex NO UMIC
[2018-10-26] MEDS: metroNIDAZOLE 500 MG TABLET PO SCH ×2 (13:45→21:13)
[2018-10-26 17:55] VITALS: BMI 19.3
[2018-10-26] MEDS: ALPRAZOLAM 0.25 MG TABLET PO SCH (21:13)
[2018-10-26] MEDS: CARVEDILOL 6.25 MG TAB PO SCH (21:13)
[2018-10-27] MEDS: NA CHLORIDE 0.9% 1,000 ML IV SCH ×5 (00:06→14:00)
[2018-10-27 05:00] LABS: Basophils % 0.3 % (0-1.3); Eosinophils % 0.6 % (0-4.4); Hematocrit 40.5 % (39.6-49.0); Lymphocytes % 8.8 % (15.3-44.8); MPV 8.5 fL (7.6-11.3); Monocytes % 12.6 % (3.3-12.3); RBC Red Blood Cell Count 4.51 M/uL (4.33-5.43)
[2018-10-27 05:10] LABS: Potassium 3.6 mmol/L (3.5-5.1)
--- NOTE | 2018-10-27 08:30 | HP ---
Date of Admission: 10/26/2018 Chief Complaint: Diarrhea, feeling weak. History Of Present Illness: An 83-year-old male patient who is having diarrhea for almost last Wed and has been under the care of Dr. Cedeño for this problem. He was diagnosed as having Clostridiu m difficile colitis by Dr. Cedeño and he was given vancomycin. After taking 1 dose of this vancomyci n, he had allergic reaction with diffuse rash, itching, and came into emergency room. He was given s ome medication and was instructed to discontinue vancomycin. After that he received 2 weeks of metro nidazole. While he was taking it, his diarrhea got better, did not completely get resolved, but it i mproved. Once he completed his metronidazole as of Wednesday of last week, he started to have worsening of diarrhea. He describes his diarrhea as liquid watery stool anywhere from 10-15 times a day. He has some vague abdominal pain in the form of achiness. His appetite is very poor and lately he is fe eling very weak, unsteady on his feet when he gets up and walks around. Denies any fall or injury. He came into the emergency room with worsening of symptoms. After he was evaluated, he was admitted to the hospital with volume depletion and recurrent Clostridium difficile colitis problem. Allergies: NO KNOWN ALLERGIES. Medications: List reviewed. Review of Systems: Gastrointestinal: As mentioned above. Constitutional: As mentioned above. All other systems reviewed are negative. Social History: Negative for smoking, alcohol use. Past Surgical History: Tonsillectomy. Allergies: NO KNOWN ALLERGIES. Family History: Significant for, 1.Hypertension. 2.Parkinson disease. 3.Coronary artery disease. Past Medical History: Significant for, 1.Hypertension. 2.Lumbar spinal stenosis. 3.Diverticulosis. 4.Hyperlipidemia. 5.Allergic rhinitis. 6.Benign prostatic hypertrophy. 7.Renal cyst. 8.Chronic kidney disease. 9.Hepatic cyst. 10.Gastroesophageal reflux disease. Physical Examination: Vital signs: Height 5 feet 7 inches, weight 125 pounds, temperature 97.8, pulse 104, blood pressure 117/80, respiratory rate 16, and oxygen saturation 100%. General: Awake, alert, oriented, not in distress. HEENT: Head atraumatic, normocephalic. Conjunctivae nonerythematous. Sclerae white. Mouth, no thr ush or edema noted. Ears/Nose, no mass, lesion, discharge noted. Neck: Supple. No JVD, lymph nodes, bruit, thyromegaly noted. Lungs: Bilateral good equal air entry. Clear to auscultation. No rhonchi. No rales. Heart: Normal heart sounds, no murmur or gallop. Abdomen: Soft, bowel sounds normal. No guarding, rigidity, tenderness, mass, hepatosplenomegaly, dis tention, or bruit noted. Extremities: No leg edema. No calf tenderness. Skin: No rash, ulcer, cellulitis. Lymphatics: No lymph node enlargement in neck, supraclavicular, infraclavicular region. Neuro: No focal neurological deficit. Chest: Patient has pectus excavatum. External Genitalia: Deferred. Rectal: Deferred. Laboratory Data: White count 12.5, hemoglobin 14.2, and platelets 192. Sodium 136, potassium 3.5, chloride 101, bicarb 28, BUN 22, creatinine 1.21, glucose 125, and total b ilirubin 1.1. Liver function tests unremarkable. Lipase 106. Stool Clostridium difficile collected from emergency room yesterday was reported as positive for Clos tridium difficile today. CAT scan of the abdomen and pelvis done in the emergency room shows changes of colitis involving cecu m, ascending colon, and sigmoid colon. No evidence of perforation or abscess. Presence of diverticu losis without diverticulitis. Hepatic and renal cyst. Right lower lobe 1.8 cm noncalcified nodule, increased in size, and may represent a small focus of pneumonitis or atelectasis, enlarged prostate. There is a small 1 cm cyst type of area in the pancreas. Impression: 1.Clostridium difficile colitis, recurrent. 2.Hypertension. 3.Hyperlipidemia. 4.Diverticulosis. 5.Renal cyst. 6.Hepatic cyst. 7.Pancreatic cyst. 8.Pulmonary nodule. 9.Volume depletion. 10.Generalized weakness. 11.Debility. Plan: 1.Admit patient to hospital for further evaluation and management of this problem. The patient is a ppropriate for inpatient and is expected to spend 2 midnights in hospital. We will give IV fluid. T he patient is allergic to vancomycin and as a result of that now we will go ahead and use metronidazo le and Physical Therapy was consulted to help ambulate the patient. Home medications will be continu ed per order. Depending on condition, the patient can be discharged to go home in the next 1 or 2 da ys. 2.There is a good possibility that his diarrhea may not be completely resolved, but as long as from watery stool if we can get it to soft stool and frequency orta reduce it from 10-15 times a day to 2- 4 times a day, then hopefully patient can continue to maintain his hydration with oral intake of flui d and we might be able to keep him out of hospital that way. Consult Dr. Cedeño. 3.Plan is to discharge him to go home with metronidazole 500 mg 3 times a day. I will see him week after next and when I see him depending on his symptoms, we will decide how to slowly taper off his m etronidazole therapy and I have discussed these details with the patient and his this morning. Starting tomorrow, hospitalist will take over his care. ROBBIN/LOUISA Voice ID: [id number]
[2018-10-27] MEDS: LORATADINE 10 MG TAB PO SCH (08:50)
[2018-10-27] MEDS: CARVEDILOL 6.25 MG TAB PO SCH ×2 (08:50→20:27)
[2018-10-27] MEDS: FAMOTIDINE 20 MG TAB PO SCH (08:50)
[2018-10-27] MEDS: LOSARTAN/HCTZ 50-12.5 PO SCH (08:51)
[2018-10-27] MEDS: metroNIDAZOLE 500 MG TABLET PO SCH ×2 (08:51→13:22)
--- NOTE | 2018-10-27 13:59 | P.PN ---
Subjective Date of Service: 10/27/18 Primary Care Provider: Dr. Lacy (I am covering) Chief Complaint: Recurrent C diff colitis Subjective: Other (Patient still with diarrhea but slightly improved) Physical Examination - Vital Signs Temperature: 98.6 F Blood Pressure: 132/63 Pulse: 86 Respirations: 18 Pulse Ox (%): 97 - Physical Exam General: Alert, In no apparent distress, Oriented x3, Cooperative HEENT: Atraumatic Neck: Supple Respiratory: Clear to auscultation bilaterally, Normal air movement Cardiovascular: Normal pulses, Regular rate/rhythm Gastrointestinal: No masses, No rebound, No guarding Musculoskeletal: No erythema, No tenderness, No warmth Integumentary: No erythema, No warmth, No cyanosis Neurological: Normal speech, Normal strength at 5/5 x4 extr, Normal tone, Normal affect - Studies Medications List Reviewed: Yes Assessment & Plan Discharge Plan: Home Plan to discharge in: 48 Hours Physician Review Additional Text: Impression: Diarrhea secondary to recurrent C diff colitis Hypertension Acute renal injury secondary to dehydration Plan: Diarrhea secondary to recurrent C diff colitis: Continue IV fluids. Will change Flagyl to IV since he is still with diarrhea. Patient allergic to vancomycin. Will start lactobacillus. Once diarrhea resolved and clinically stable patient can be discharged home. Patient will require Flagyl for at least 1 month at discharge. Will consult GI to further evaluate. At discharge Dr. Lacy will adjust Flagyl. Will order physical therapy diff evaluate. Anticipate discharge in the next 2-3 days pending clinical improvement and resolution of diarrhea. I will turn the service over to Dr. Alberts tomorrow. I will go over the plan of care with her. Hypertension: Continue home medication. Acute renal injury secondary to dehydration: Continue IV fluids. Time Spent Managing Pts Care (In Minutes): 55
[2018-10-27] MEDS: LACTOBACILLUS/ACIDOPHILUS TAB PO SCH ×2 (14:28→20:27)
[2018-10-27] MEDS: ENOXAPARIN 30 MG/0.3 ML SQ SCH (16:49)
[2018-10-27] MEDS: METRONIDAZOLE 500mg IVPB 500 MG/100 ML BAG IV SCH (16:50)
[2018-10-27] MEDS: ALPRAZOLAM 0.25 MG TABLET PO SCH (20:27)
[2018-10-28] MEDS: METRONIDAZOLE 500mg IVPB 500 MG/100 ML BAG IV SCH ×3 (00:20→16:03)
[2018-10-28] MEDS: NA CHLORIDE 0.9% 1,000 ML IV SCH ×2 (00:21→10:11)
[2018-10-28 06:44] LABS: Absolute Lymphocytes (CBC) 1.1 K/uL (0.7-4.9); Basophils % 0.4 % (0-1.3); Eosinophils % 1.1 % (0-4.4); Hematocrit 36.3 % (39.6-49.0); Lymphocytes % 12.5 % (15.3-44.8); MPV 8.4 fL (7.6-11.3); Monocytes % 16.6 % (3.3-12.3); RBC Red Blood Cell Count 4.12 M/uL (4.33-5.43)
[2018-10-28 06:46] LABS: Magnesium 1.9 mg/dL (1.8-2.4); Potassium 3.3 mmol/L (3.5-5.1)
[2018-10-28] MEDS: CARVEDILOL 6.25 MG TAB PO SCH ×2 (09:15→21:37)
[2018-10-28] MEDS: LACTOBACILLUS/ACIDOPHILUS TAB PO SCH ×3 (09:15→21:37)
[2018-10-28] MEDS: LOSARTAN/HCTZ 50-12.5 PO SCH (09:15)
[2018-10-28] MEDS: LORATADINE 10 MG TAB PO SCH (09:16)
[2018-10-28] MEDS: FAMOTIDINE 20 MG TAB PO SCH (09:16)
[2018-10-28 10:03] LABS: Blood Morphology Comment NOT SEEN (NOT SEEN); Platelet Estimate ADEQ; Urine White Blood Cell Casts OK
--- NOTE | 2018-10-28 11:41 | P.PN ---
Subjective Date of Service: 10/28/18 Primary Care Provider: Dr. Lacy (I am covering) Chief Complaint: Recurrent C diff colitis Subjective: No C/O voiced, Tolerating diet, Improving, Working w/ PT, Doing well Review of Systems 10-point ROS is otherwise unremarkable Physical Examination - Vital Signs Temperature: 99 F Blood Pressure: 152/69 Pulse: 83 Respirations: 18 Pulse Ox (%): 95 - Physical Exam General: Alert, In no apparent distress Respiratory: Clear to auscultation bilaterally, Normal air movement Cardiovascular: Regular rate/rhythm, Normal S1 S2 Gastrointestinal: Normal bowel sounds, No tenderness Musculoskeletal: No tenderness Integumentary: No rashes Neurological: Normal speech, Normal tone, Normal affect Lymphatics: No axilla or inguinal lymphadenopathy - Studies Medications List Reviewed: Yes Assessment And Plan - Current Problems (Diagnosis) (1) C. difficile colitis Current Visit: Yes Status: Acute Plan: Patient with nausea vomiting and diarrhea found to have C. diff colitis -currently on Flagyl. Will continue that here in the hospital -patient continues to have episodes of diarrhea 3 total overnight and two this morning -continue patient on Flagyl here in the hospital. Allergic to vancomycin -once patient's diarrhea is resolved patient will be able to go home (2) Dehydration Current Visit: Yes Status: Acute Plan: Dehydration most likely secondary to colitis -IV fluids at this time -patient currently also on GI soft diet - Plan Pending clinical improvement. Discharge Plan: Home Plan to discharge in: 48 Hours - Code Status/Comfort Care Code Status Assessed: Yes Critical Care: No
[2018-10-28] MEDS: ENOXAPARIN 30 MG/0.3 ML SQ SCH (16:03)
[2018-10-28] MEDS: ALPRAZOLAM 0.25 MG TABLET PO SCH (21:37)
[2018-10-29] MEDS: METRONIDAZOLE 500mg IVPB 500 MG/100 ML BAG IV SCH ×3 (00:43→17:00)
[2018-10-29] MEDS: NA CHLORIDE 0.9% 1,000 ML IV SCH ×2 (03:17→06:00)
[2018-10-29 05:56] LABS: Basophils % 0.4 % (0-1.3); Eosinophils % 1.1 % (0-4.4); Hematocrit 34.8 % (39.6-49.0); Lymphocytes % 13.6 % (15.3-44.8); MPV 8.4 fL (7.6-11.3); Monocytes % 17.7 % (3.3-12.3); RBC Red Blood Cell Count 3.92 M/uL (4.33-5.43)
[2018-10-29 05:59] LABS: Magnesium 1.8 mg/dL (1.8-2.4); Potassium 3.1 mmol/L (3.5-5.1)
[2018-10-29] MEDS ORDERED: MAGNESIUM SULFATE 1 gm IVPB 1 GM/100 ML BAG IV ONE (08:00)
[2018-10-29] MEDS: FAMOTIDINE 20 MG TAB PO SCH (08:23)
[2018-10-29] MEDS: LORATADINE 10 MG TAB PO SCH (08:23)
[2018-10-29] MEDS: LACTOBACILLUS/ACIDOPHILUS TAB PO SCH ×3 (08:23→21:48)
[2018-10-29] MEDS: LOSARTAN/HCTZ 50-12.5 PO SCH (08:24)
[2018-10-29] MEDS: CARVEDILOL 6.25 MG TAB PO SCH ×2 (08:25→21:48)
[2018-10-29] MEDS ORDERED: POTASSIUM 25 MEQ EFFERV TAB PO ONE ×2 (09:57→20:00)
--- NOTE | 2018-10-29 11:38 | P.PN ---
Subjective Date of Service: 10/29/18 Primary Care Provider: Dr. Lacy (I am covering) Chief Complaint: Recurrent C diff colitis Patient seen and examined at bedside with RN. Chart reviewed. Case discussed with family member at bedside. This morning patient continues to have bowel movements. Had 4 diarrheal episodes last night. Does appear to be weak this morning. Review of Systems 10-point ROS is otherwise unremarkable Physical Examination - Vital Signs Temperature: 98.4 F Blood Pressure: 125/60 Pulse: 77 Respirations: 18 Pulse Ox (%): 93 - Physical Exam General: Alert, In no apparent distress Respiratory: Clear to auscultation bilaterally, Normal air movement Cardiovascular: Regular rate/rhythm, Normal S1 S2 Gastrointestinal: Normal bowel sounds, No tenderness Musculoskeletal: No tenderness Integumentary: No rashes Neurological: Normal speech, Normal tone, Normal affect Lymphatics: No axilla or inguinal lymphadenopathy - Studies Medications List Reviewed: Yes Assessment And Plan - Current Problems (Diagnosis) (1) C. difficile colitis Current Visit: Yes Status: Acute Plan: Patient with nausea vomiting and diarrhea found to have C. diff colitis -currently on Flagyl. Will continue that here in the hospital -patient continues to have episodes of diarrhea 43 total overnight and two this morning -continue patient on Flagyl here in the hospital. Allergic to vancomycin -once patient's diarrhea is resolved patient will be able to go home (2) Dehydration Current Visit: Yes Status: Acute Plan: Dehydration most likely secondary to colitis -IV fluids at this time -patient currently also on GI soft diet - Plan Pending clinical improvement. Will have patient worked with physical therapy and continue with Flagyl here in the hospital. Monitor for electrolyte imbalances and replenish fluids and electrolytes appropriately Discharge Plan: Home Plan to discharge in: 48 Hours - Code Status/Comfort Care Code Status Assessed: Yes Critical Care: No
[2018-10-29] MEDS: ENOXAPARIN 30 MG/0.3 ML SQ SCH (17:52)
[2018-10-29] MEDS: ALPRAZOLAM 0.25 MG TABLET PO SCH (21:49)
[2018-10-30] MEDS: METRONIDAZOLE 500mg IVPB 500 MG/100 ML BAG IV SCH ×3 (00:34→16:37)
[2018-10-30] MEDS: NA CHLORIDE 0.9% 1,000 ML IV SCH ×3 (02:00→12:55)
[2018-10-30 06:08] LABS: Absolute Lymphocytes (CBC) 1.5 K/uL (0.7-4.9); Basophils % 0.7 % (0-1.3); Eosinophils % 1.7 % (0-4.4); Hematocrit 35.2 % (39.6-49.0); Lymphocytes % 19.6 % (15.3-44.8); MPV 8.8 fL (7.6-11.3); Monocytes % 16.9 % (3.3-12.3); RBC Red Blood Cell Count 3.99 M/uL (4.33-5.43)
[2018-10-30 06:13] LABS: BUN Blood Urea Nitrogen 12 mg/dL (7-18); Bicarbonate 27 mmol/L (21-32); Glucose Level 103 mg/dL (74-106); Potassium 3.4 mmol/L (3.5-5.1); Sodium Level 140 mmol/L (136-145)
[2018-10-30] MEDS ORDERED: POTASSIUM 25 MEQ EFFERV TAB PO ONE (08:00)
[2018-10-30] MEDS: LACTOBACILLUS/ACIDOPHILUS TAB PO SCH ×3 (09:00→21:51)
[2018-10-30] MEDS: LOSARTAN/HCTZ 50-12.5 PO SCH (09:31)
[2018-10-30] MEDS: CARVEDILOL 6.25 MG TAB PO SCH ×2 (09:32→21:51)
[2018-10-30] MEDS: LORATADINE 10 MG TAB PO SCH (09:32)
[2018-10-30] MEDS: FAMOTIDINE 20 MG TAB PO SCH (09:32)
--- NOTE | 2018-10-30 11:50 | P.PN ---
Subjective Date of Service: 10/30/18 Primary Care Provider: Dr. Lacy (I am covering) Chief Complaint: Recurrent C diff colitis Patient seen and examined at bedside with RN. Chart reviewed. Case discussed with family member at bedside. This morning patient continues to have bowel movements. Had 2 diarrheal episodes last night. Does appear to be weak this morning. Has not worked with physical therapy and Review of Systems 10-point ROS is otherwise unremarkable Physical Examination - Vital Signs Temperature: 97.6 F Blood Pressure: 143/73 Pulse: 74 Respirations: 16 Pulse Ox (%): 98 - Physical Exam General: Alert, In no apparent distress HEENT: Atraumatic, PERRLA, EOMI Neck: Supple, JVD not distended Respiratory: Clear to auscultation bilaterally, Normal air movement Cardiovascular: Regular rate/rhythm, Normal S1 S2 Gastrointestinal: Normal bowel sounds, No tenderness Musculoskeletal: No tenderness Integumentary: No rashes Neurological: Normal speech, Normal tone, Normal affect Lymphatics: No axilla or inguinal lymphadenopathy - Studies Medications List Reviewed: Yes Assessment And Plan - Current Problems (Diagnosis) (1) C. difficile colitis Current Visit: Yes Status: Acute Plan: Patient with nausea vomiting and diarrhea found to have C. diff colitis -currently on Flagyl. Will continue that here in the hospital -patient continues to have episodes of diarrhea 2 total overnight and 1 this morning -continue patient on Flagyl here in the hospital. Allergic to vancomycin -once patient's diarrhea is resolved patient will be able to go home (2) Dehydration Current Visit: Yes Status: Acute Plan: Dehydration most likely secondary to colitis -IV fluids at this time -patient currently also on GI soft diet - Plan Pending clinical improvement. Will have patient workd with physical therapy and continue with Flagyl here in the hospital. Monitor for electrolyte imbalances and replenish fluids and electrolytes appropriately Discharge Plan: Home Plan to discharge in: Greater than 2 days - Code Status/Comfort Care Code Status Assessed: Yes Critical Care: No
[2018-10-30] MEDS: ENOXAPARIN 30 MG/0.3 ML SQ SCH (16:37)
[2018-10-30] MEDS: ALPRAZOLAM 0.25 MG TABLET PO SCH (21:52)
[2018-10-31] MEDS: METRONIDAZOLE 500mg IVPB 500 MG/100 ML BAG IV SCH ×2 (00:54→08:47)
[2018-10-31 01:16] VITALS: O2SAT 96
[2018-10-31] MEDS: NA CHLORIDE 0.9% 1,000 ML IV SCH (02:37)
[2018-10-31 05:53] LABS: Potassium 3.9 mmol/L (3.5-5.1)
[2018-10-31] MEDS: LOSARTAN/HCTZ 50-12.5 PO SCH (08:47)
[2018-10-31] MEDS: FAMOTIDINE 20 MG TAB PO SCH (08:48)
[2018-10-31] MEDS: LORATADINE 10 MG TAB PO SCH (08:48)
[2018-10-31] MEDS: LACTOBACILLUS/ACIDOPHILUS TAB PO SCH (08:48)
[2018-10-31] MEDS: CARVEDILOL 6.25 MG TAB PO SCH (08:49)
[2018-10-31] MEDS ORDERED: POTASSIUM CL SA 10 MEQ TAB PO ONE (09:00)
[2018-10-31 12:54] VITALS: BP 132/63; TEMP 97.8
--- NOTE | 2018-10-31 13:15 | P.DS ---
Admission Date: 10/26/18 Discharge Date: 10/31/18 Primary Care Provider: Dr. Lacy (I am covering) Disposition: ROUTINE DISCHARGE Discharge Condition: GOOD Reason for Admission: Recurrent C diff colitis Consultations: GI - Problems (1) C. difficile colitis Current Visit: Yes Status: Acute (2) Dehydration Current Visit: Yes Status: Acute Brief History of Present Illness: An 83-year-old male patient who is having diarrhea for almost last 1 month and has been under the care of Dr. Cedeño for this problem. He was diagnosed as having Clostridium difficile colitis by Dr. Cedeño and he was given vancomycin. After taking 1 dose of this vancomycin, he had allergic reaction with diffuse rash, itching, and came into emergency room. He was given some medication and was instructed to discontinue vancomycin. After that he received 2 weeks of metronidazole. While he was taking it, his diarrhea got better, did not completely get resolved, but it improved. Once he completed his metronidazole as of Wednesday of last week, he started to have worsening of diarrhea. He describes his diarrhea as liquid watery stool anywhere from 10-15 times a day. He has some vague abdominal pain in the form of achiness. His appetite is very poor and lately he is feeling very weak, unsteady on his feet when he gets up and walks around. Denies any fall or injury. He came into the emergency room with worsening of symptoms. After he was evaluated, he was admitted to the hospital with volume depletion and recurrent Clostridium difficile colitis problem. Hospital Course: Overall during the hospital stay patient remained stable Patient was initially admitted to the hospital for failed outpatient therapy for his C. diff colitis. Patient was started on IV Flagyl here in the hospital patient is allergic to p.o. vancomycin and thus was not started on vancomycin. Patient along with C. diff colitis also have generalized weakness and dehydration from repeated diarrheal episode. Patient was started on IV fluids here in the hospital as well. Patient is dehydration status does improve while here in the hospital in 48 hr. Patient was seen by physical therapy here in the hospital and did well overall and thus was discharged to work with family members and the nursing staff here in the hospital. Patient continued to have diarrheal episode here in the hospital despite being on PO Flagyl however the episode amount decreased while here in the hospital. Patient was educated extensively regarding the need to continue taking oral fluids to replace volume and electrolytes. Patient demonstrated understanding. Patient was initially referred to home health however he did so well with physical therapy that she did not qualify for home health and thus was discharged home under stable condition. Patient was asked to follow up with Dr. ina SANTOS on Wednesday outpatient. Patient was also asked to follow up with primary care provider in about 1-2 days post discharge. Patient was given p.o. flagyl to be taken for total 4 weeks at this time Vital Signs/Physical Exam: Temp Pulse Resp BP Pulse Ox 97.8 F 85 18 132/63 95 10/31/18 12:00 10/31/18 12:00 10/31/18 12:00 10/31/18 12:00 10/31/18 12:00 General: Alert, In no apparent distress HEENT: Atraumatic, PERRLA, EOMI Neck: Supple, JVD not distended Respiratory: Clear to auscultation bilaterally, Normal air movement Cardiovascular: Regular rate/rhythm, Normal S1 S2 Gastrointestinal: Normal bowel sounds, No tenderness Musculoskeletal: No tenderness Integumentary: No rashes Neurological: Normal speech, Normal tone, Normal affect Lymphatics: No axilla or inguinal lymphadenopathy Laboratory Data at Discharge: WBC 7.7 K/uL (4.3-10.9) 10/30/18 05:12 Hgb 12.3 g/dL (13.6-17.9) L 10/30/18 05:12 Hct 35.2 % (39.6-49.0) L 10/30/18 05:12 Plt Count 205 K/uL (152-406) 10/30/18 05:12 Sodium 141 mmol/L (136-145) 10/31/18 05:22 Potassium 3.9 mmol/L (3.5-5.1) 10/31/18 05:22 BUN 12 mg/dL (7-18) 10/31/18 05:22 Creatinine 0.89 mg/dL (0.55-1.3) 10/31/18 05:22 Glucose 97 mg/dL (74-106) 10/31/18 05:22 Magnesium 2.0 mg/dL (1.8-2.4) 10/30/18 05:12 Total Bilirubin 1.1 mg/dL (0.2-1.0) H 10/26/18 03:30 AST 23 U/L (15-37) 10/26/18 03:30 ALT 34 U/L (12-78) 10/26/18 03:30 Alkaline Phosphatase 81 U/L (45-117) 10/26/18 03:30 Lipase 106 U/L (73-393) 10/26/18 03:30 Home Medications: ALPRAZolam [Xanax*] 0.25 mg PO BEDTIME 10/26/18 Amlodipine [Norvasc*] 5 mg PO PRN 10/26/18 Carvedilol [Coreg*] 6.25 mg PO BID 10/26/18 Famotidine 40 mg PO DAILY 10/26/18 Loratadine [Claritin*] 10 mg PO DAILY 10/26/18 Losartan/Hydrochlorothiazide [Losartan-Hctz 50-12.5 mg Tab] 1 tab PO DAILY 10/26 Vit A,C & E/Lutein/Minerals [Ocuvite Tablet] 1 tab PO DAILY 10/26/18 Lactobacillus Acidophilus/Fos [Acidophilus Probiotic Tablet] 1 each PO TID #90 tablet 10/31/18 metroNIDAZOLE [Flagyl] 500 mg PO Q6H #56 tablet 10/31/18 New Medications: Lactobacillus Acidophilus/Fos [Acidophilus Probiotic Tablet] 1 each PO TID #90 tablet metroNIDAZOLE [Flagyl] 500 mg PO Q6H #56 tablet Diet: Regular Activity: Ad landry Followup: Nasim Lacy MD [Primary Care Provider] - 1-2 Weeks (call to schedule an appointment in 1-2 weeks ) Tyler Cedeño MD [ASSOCIATE-ACTIVE - CAN ADMIT] - 1-2 Weeks (call to schedule an appointment in 1-2 weeks )
== END 2018-10-31 13:40 | disposition home or self-care (01) | DRG 372 ==
LOC: ER 02:47 → ERHOLD 06:13 → 4TH 07:38
PROVIDERS: ADMIT Internal Medicine; ATTEND Family Medicine
DX: A04.71 Enterocolitis due to Clostridium difficile, recurrent (principal); K86.2 Cyst of pancreas; N17.9 Acute kidney failure, unspecified; E86.0 Dehydration; I10 Essential (primary) hypertension; E78.5 Hyperlipidemia, unspecified; K57.90 Diverticulosis of intestine, part unspecified, without perforation or abscess without bleeding; N28.1 Cyst of kidney, acquired; K76.89 Other specified diseases of liver; R91.1 Solitary pulmonary nodule; R53.81 Other malaise; N40.0 Benign prostatic hyperplasia without lower urinary tract symptoms; K21.9 Gastro-esophageal reflux disease without esophagitis
CPT/HCPCS: 36415; 74177; 80048; 80076; 81003; 83690; 83735; 84132; 85025; 87045; 87046; 87493; 96360; 97162; 97164; 99285; J1650; J3475; J7030; Q9967

== ENCOUNTER 2020-05-18 16:31 | Emergency (ER) | payer OTHER, BC ==
[2020-05-18 17:19] LABS: Absolute Lymphocytes (CBC) 1.1 K/uL (0.7-4.9); Basophils % 0.4 % (0-1.3); Hematocrit 38.7 % (39.6-49.0); Lymphocytes % 11.7 % (15.3-44.8); MPV 7.9 fL (7.6-11.3); RBC Red Blood Cell Count 4.67 M/uL (4.33-5.43)
[2020-05-18] MEDS ORDERED: NA CHLORIDE 0.9% 1,000 ML ONE (17:36)
[2020-05-18 17:38] LABS: Albumin 3.1 g/dL (3.4-5.0); Bilirubin Total 0.5 mg/dL (0.2-1.0); Potassium 3.7 mmol/L (3.5-5.1); Protein, Total 7.2 g/dL (6.4-8.2)
--- NOTE | 2020-05-18 18:39 | EDPHYS ---
Physician Documentation [facility] Name: Harsh Crowley Age: 85 yrs Sex: Male : 1935 Arrival Date: 05/18/2020 Time: 16:37 Bed 7 Private MD: ED Physician Krunal Ryder HPI: 05/18 18:22 This 85 yrs old Male presents to ER via Ambulatory with complaints of ma2 Diarrhea. 18:22 The patient presents to the emergency department with diarrhea. Onset: The ma2 symptoms/episode began/occurred gradually, 1 day(s) ago. Associated signs and symptoms: Pertinent negatives: belching, diarrhea, flatulence, hematuria. Severity of symptoms: At their worst the symptoms were mild in the emergency department the symptoms are unchanged. The patient has experienced a previous episode. Historical: - Allergies: 16:59 Prevacid; sv 16:59 Vancomycin; sv - Home Meds: 16:59 carvedilol 6.25 mg Oral tab 1 tab 2 times per day [Active]; amlodipine oral 5mg sv NEEDED if Systolic B.P is over 150 [Active]; famotidine 40 mg Oral tab 1 tab nightly [Active]; atorvastatin 10 mg oral tab 1 tab once daily [Active]; mirtazapine 7.5 mg Oral tab nightly [Active]; Claritin 10 mg Oral tab 1 tab once daily [Active]; pearls complete 1 PO daily [Active]; Immunity guard 1 packet daily [Active]; B-Complex oral tab daily [Active]; - PMHx: 16:59 Anxiety; C-diff; GERD; Hypertension; sv - PSHx: 16:59 Tonsillectomy; Hernia repair; prostate; cataracts; sv - Immunization history:: Adult Immunizations up to date, Flu vaccine is up to date. - Social history:: Smoking status: Patient denies any tobacco usage or history of. Patient/guardian denies using alcohol, street drugs, The patient lives with family. - Family history:: not pertinent. ROS: 18:22 Constitutional: Negative for fever, chills, and weight loss. ma2 18:22 All other systems are negative. Exam: 18:22 Constitutional: This is a well developed, well nourished patient who is awake, alert, ma2 and in no acute distress. Chest/axilla: Normal chest wall appearance and motion. Nontender with no deformity. No lesions are appreciated. Cardiovascular: Regular rate and rhythm with a normal S1 and S2. No gallops, murmurs, or rubs. Normal PMI, no JVD. No pulse deficits. Respiratory: Lungs have equal breath sounds bilaterally, clear to auscultation and percussion. No rales, rhonchi or wheezes noted. No increased work of breathing, no retractions or nasal flaring. Abdomen/GI: Soft, non-tender, with normal bowel sounds. No distension or tympany. No guarding or rebound. No evidence of tenderness throughout. MS/ Extremity: Pulses equal, no cyanosis. Neurovascular intact. Full, normal range of motion. Neuro: Awake and alert, GCS 15, oriented to person, place, time, and situation. Cranial nerves II-XII grossly intact. Motor strength 5/5 in all extremities. Sensory grossly intact. Cerebellar exam normal. Normal gait. Vital Signs: 16:55 BP 125 / 67; Pulse 83; Resp 16; Temp 99.7; Pulse Ox 98% ; Weight 53.52 kg; Height 5 ft. sv 7 in. (170.18 cm); Pain 0/10; 17:48 BP 150 / 69; Pulse 79; Resp 16; Pulse Ox 98% on R/A; sv 18:29 BP 150 / 69; Pulse 81; Resp 16; Pulse Ox 100% on R/A; sv 16:55 Body Mass Index 18.48 (53.52 kg, 170.18 cm) sv MDM: 16:48 Patient medically screened. fl2 18:22 Differential diagnosis: gastritis, viral gastroenteritis, gastroenteritis. Data fl2 reviewed: vital signs, nurses notes, EMS record. 18:38 Counseling: I had a detailed discussion with the patient and/or guardian regarding: the fl2 historical points, exam findings, and any diagnostic results supporting the discharge/admit diagnosis, the presence of at least one elevated blood pressure reading (>120/80) during this emergency department visit, the need for outpatient follow up. Response to treatment: the patient's symptoms have markedly improved after treatment. 05/18 16:46 Order name: CBC with Diff ma2 05/18 16:46 Order name: CMP; Complete Time: 18:02 fl2 05/18 16:46 Order name: CBC with Automated Diff; Complete Time: 18:02 EDMS Administered Medications: 17:23 Drug: NS 0.9% 1000 ml Route: IV; Rate: 1 bolus; Site: right forearm; sv 18:30 Follow up: Response: No adverse reaction; IV Status: Completed infusion; IV Intake: sv 1000ml Disposition: 05/18/20 18:38 Discharged to Home. Impression: Diarrhea, unspecified. - Condition is Stable. - Discharge Instructions: Food Choices to Help Relieve Diarrhea, Adult, Diarrhea, Adult. - Medication Reconciliation Form, Thank You Letter, Antibiotic Education, Prescription Opioid Use form. - Follow up: Private Physician; When: Tomorrow; Reason: Continuance of care. Signatures: Dispatcher [employer] Rimma Butt RN RN Toby Scott RN RN jb4 Krunal Ryder MD MD ma2 Corrections: (The following items were deleted from the chart) 19:28 18:38 05/18/2020 18:38 Discharged to Home. Impression: Diarrhea, unspecified. Condition jb4 is Stable. Forms are Medication Reconciliation Form, Thank You Letter, Antibiotic Education, Prescription Opioid Use. Follow up: Private Physician; When: Tomorrow; Reason: Continuance of care. ma2
--- NOTE | 2020-05-18 18:39 | ER ---
Nurse's Notes [facility] Name: Harsh Crowley Age: 85 yrs Sex: Male : 1935 Arrival Date: 05/18/2020 Time: 16:37 Bed 7 Private MD: Diagnosis: Diarrhea, unspecified Presentation: 05/18 16:55 Chief complaint: Patient states: diarrhea started yesterday. Denies abd pain or any sv other symptoms. Coronavirus screen: Client denies travel out of the [place] in the last 14 days. Pt received 1st dose of vaccine 2 wks ago. Ebola Screen: No symptoms or risks identified at this time. Initial Sepsis Screen: Does the patient meet any 2 criteria? No. Patient's initial sepsis screen is negative. Does the patient have a suspected source of infection? No. Patient's initial sepsis screen is negative. Risk Assessment: Do you want to hurt yourself or someone else? Patient reports no desire to harm self or others. Onset of symptoms was May 17, 2020. 16:55 Method Of Arrival: Ambulatory sv 16:55 Acuity: KRISTEN 3 sv Triage Assessment: 16:59 General: Appears in no apparent distress. comfortable, slender, Behavior is calm, sv cooperative, appropriate for age. Pain: Denies pain. Neuro: Level of Consciousness is awake, alert, obeys commands, Oriented to person, place, time, situation, Moves all extremities. Full function Gait is steady. Respiratory: Airway is patent Respiratory effort is even, unlabored, Respiratory pattern is regular, symmetrical. Derm: Skin is intact, Skin is pink, warm \T\ dry. Musculoskeletal: Range of motion: intact in all extremities. Historical: - Allergies: 16:59 Prevacid; sv 16:59 Vancomycin; sv - Home Meds: 16:59 carvedilol 6.25 mg Oral tab 1 tab 2 times per day [Active]; amlodipine oral 5mg sv NEEDED if Systolic B.P is over 150 [Active]; famotidine 40 mg Oral tab 1 tab nightly [Active]; atorvastatin 10 mg oral tab 1 tab once daily [Active]; mirtazapine 7.5 mg Oral tab nightly [Active]; Claritin 10 mg Oral tab 1 tab once daily [Active]; pearls complete 1 PO daily [Active]; Immunity guard 1 packet daily [Active]; B-Complex oral tab daily [Active]; - PMHx: 16:59 Anxiety; C-diff; GERD; Hypertension; sv - PSHx: 16:59 Tonsillectomy; Hernia repair; prostate; cataracts; sv - Immunization history:: Adult Immunizations up to date, Flu vaccine is up to date. - Social history:: Smoking status: Patient denies any tobacco usage or history of. Patient/guardian denies using alcohol, street drugs, The patient lives with family. - Family history:: not pertinent. Screenin:00 Abuse screen: Denies threats or abuse. Denies injuries from another. Nutritional sv screening: No deficits noted. Tuberculosis screening: No symptoms or risk factors identified. Fall Risk None identified. Assessment: 17:13 Reassessment: Patient appears in no apparent distress at this time. No changes from sv previously documented assessment. See triage assessment. 18:29 Reassessment: Patient appears in no apparent distress at this time. No changes from sv previously documented assessment. Patient and/or family updated on plan of care and expected duration. Pain level reassessed. Patient is alert, oriented x 3, equal unlabored respirations, skin warm/dry/pink. 19:26 Reassessment: Patient appears in no apparent distress at this time. Patient and/or jb4 family updated on plan of care and expected duration. Pain level reassessed. Patient is alert, oriented x 3, equal unlabored respirations, skin warm/dry/pink. Pt verbalized understanding of d/c and follow up instructions with teach back, denies questions or concerns. Assisted to lobby via wheel chair to wait for ride home. Vital Signs: 16:55 BP 125 / 67; Pulse 83; Resp 16; Temp 99.7; Pulse Ox 98% ; Weight 53.52 kg; Height 5 ft. sv 7 in. (170.18 cm); Pain 0/10; 17:48 BP 150 / 69; Pulse 79; Resp 16; Pulse Ox 98% on R/A; sv 18:29 BP 150 / 69; Pulse 81; Resp 16; Pulse Ox 100% on R/A; sv 16:55 Body Mass Index 18.48 (53.52 kg, 170.18 cm) sv ED Course: 16:37 Patient arrived in ED. ds1 16:48 Rimma Cárdenas, RN is Primary Nurse. sv 16:48 Krunal Ryder MD is Attending Physician. ma2 16:56 Triage completed. sv 16:59 Arm band placed on. sv 17:00 Patient has correct armband on for positive identification. Bed in low position. Call sv light in reach. Pulse ox on. NIBP on. Door closed. Head of bed elevated. 17:05 Inserted saline lock: 20 gauge in right forearm, using aseptic technique. Blood sv collected. Flushed right forearm with 5 ml normal saline. 17:16 ED physician to see patient. sv 17:19 CBC with Diff Sent. sv 17:48 Awaiting re-evaluation by ER provider. sv 19:03 Primary Nurse role handed off by Rimma Cárdenas RN sv 19:26 Toby Rodas, RN is Primary Nurse. jb4 19:28 No provider procedures requiring assistance completed. IV discontinued, intact, jb4 bleeding controlled, No redness/swelling at site. Pressure dressing applied. Administered Medications: 17:23 Drug: NS 0.9% 1000 ml Route: IV; Rate: 1 bolus; Site: right forearm; sv 18:30 Follow up: Response: No adverse reaction; IV Status: Completed infusion; IV Intake: sv 1000ml Intake: 18:30 IV: 1000ml; Total: 1000ml. sv Outcome: 18:38 Discharge ordered by . ma2 19:28 Discharged to home via wheelchair, with family. jb4 19:28 Condition: stable 19:28 Discharge instructions given to patient, Instructed on discharge instructions, follow up and referral plans. Demonstrated understanding of instructions, follow-up care. 19:28 Patient left the ED. jb4 Signatures: Rimma Cárdenas RN RN sv [place], Demi ds1 Toby Rodas RN RN jb4 Krunal Ryder MD MD vtSelina
[2020-05-18 19:33] VITALS: TEMP 99.7
[2020-05-18 19:34] VITALS: BP 150/69
[2020-05-18 19:35] VITALS: O2SAT 100
[2020-05-19 13:26] LABS: C.diff Antigen/Toxin Ag pos : Tox pos (NEG : NEG)
== END 2020-05-18 19:28 | disposition home or self-care (01) ==
LOC: ER 16:31
DX: R19.7 Diarrhea, unspecified (principal); F41.9 Anxiety disorder, unspecified; K21.9 Gastro-esophageal reflux disease without esophagitis; I10 Essential (primary) hypertension
CPT/HCPCS: 36415; 80053; 85025; 96360; 99284; J7030

== ENCOUNTER 2020-05-21 04:23 | Inpatient (IN) | payer OTHER, BC ==
[2020-05-21 04:55] LABS: Absolute Lymphocytes (CBC) 1.5 K/uL (0.7-4.9); Basophils % 0.8 % (0-1.3); Hematocrit 38.2 % (39.6-49.0); Lymphocytes % 23.8 % (15.3-44.8); MPV 7.9 fL (7.6-11.3)
[2020-05-21 05:02] LABS: Protime INR 1.18
[2020-05-21 05:29] LABS: Blood Morphology Comment NOT SEEN (NOT SEEN); Platelet Estimate ADEQ
[2020-05-21 05:35] LABS: Albumin 2.9 g/dL (3.4-5.0); Bilirubin Direct 0.2 mg/dL (0-0.2); Bilirubin Total 0.7 mg/dL (0.2-1.0); Potassium 3.3 mmol/L (3.5-5.1); Protein, Total 6.6 g/dL (6.4-8.2)
--- NOTE | 2020-05-21 08:15 | RAD REPORT ---
EXAM DESCRIPTION: CTAbdomen Pelvis W Contrast - 05/21/2020 6:54 am CLINICAL HISTORY: Abdominal pain. bloody diarrhea COMPARISON: Abdomen Pelvis W Contrast dated 10/26/2018; Abdomen Pelvis W Contrast dated 10/02/2018 ; Abdomen Pelvis W Contrast dated 10/22/2015 TECHNIQUE: Biphasic CT imaging of the abdomen and pelvis was performed with 100 ml non-ionic IV cont rast. All CT scans are performed using dose optimization technique as appropriate and may include automated exposure control or mA/KV adjustment according to patient size. FINDINGS: Linear opacities are present in both lung bases, likely representing subsegmental atelecta sis. The liver contains several low-density lesions, nonspecific but likely small cyst. No aggressive live r lesion evident. The spleen, adrenal glands are normal limits. Small cyst is present cortex of left kidney measuring 1 1 mm. No aggressive renal lesion or hydronephrosis. Hypodense lesion is present in the body of the pancreas 20 x 12 mm without pancreatic ductal dilatati on. Moderate thickening of the wall of the cecum is seen. There is also thickening of the ascending colon as well as the rectosigmoid colon. Numerous diverticula are emanating from the sigmoid colon. The ap pendix is not identified as a discrete structure, however, no secondary findings of appendicitis are identified. No evidence of significant lymphadenopathy. Mild to moderate lumbosacral degenerative changes. IMPRESSION: Mild to moderate colitis pattern is present. No pneumatosis coli. 20 x 12 mm low density lesion in the pancreatic body is nonspecific. Recommend followup nonemergent M RI pancreas.
[2020-05-21] MEDS ORDERED: Levofloxacin500mg IV 500 MG/100 ML BAG IV ONE (08:37)
[2020-05-21] MEDS ORDERED: METRONIDAZOLE 500mg IVPB 500 MG/100 ML BAG IV ONE (08:38)
[2020-05-21] MEDS: D5.45NS W/KCL 20MEQ 1,000 ML IV SCH ×3 (09:00→19:00)
[2020-05-21] MEDS: METRONIDAZOLE 500mg IVPB 500 MG/100 ML BAG IV SCH ×2 (09:00→16:47)
[2020-05-21] MEDS ORDERED: Levofloxacin500mg IV 500 MG/100 ML BAG IV SCH (09:00)
--- NOTE | 2020-05-21 09:34 | ER ---
Nurse's Notes [facility] Name: Harsh Crowley Age: 85 yrs Sex: Male : 1935 Arrival Date: 05/21/2020 Time: 04:24 Bed 8 Private MD: Dinorah Lacy C Diagnosis: Diarrhea, unspecified;Infectious gastroenteritis and colitis, unspecified Presentation: 05/21 04:33 Chief complaint: Patient states: diarrhea since Wednesday, noticed blood on Wednesday, em brought stool specimen up to the hospital on Wednesday but does not know the results, reports a little fever, denies abd pain or N/V. Coronavirus screen: Client denies travel out of the [place] in the last 14 days. Ebola Screen: Patient negative for fever greater than or equal to 101.5 degrees Fahrenheit, and additional compatible Ebola Virus Disease symptoms Patient denies exposure to infectious person. Patient denies travel to an Ebola-affected area in the 21 days before illness onset. No symptoms or risks identified at this time. Initial Sepsis Screen: Does the patient have a suspected source of infection? No. Patient's initial sepsis screen is negative. Risk Assessment: Do you want to hurt yourself or someone else? Patient reports no desire to harm self or others. Onset of symptoms was April 2020. 04:33 Method Of Arrival: Ambulatory em 04:33 Acuity: KRISTEN 3 em 11:16 Initial Sepsis Screen: Does the patient meet any 2 criteria? No. Patient's initial jl7 sepsis screen is negative. Historical: - Allergies: 04:36 Prevacid; em 04:36 Vancomycin; em - PMHx: 04:36 Anxiety; GERD; C-diff; Hypertension; em - PSHx: 04:36 Tonsillectomy; Hernia repair; cataracts; prostate; em - Immunization history:: Adult Immunizations up to date. - Social history:: Smoking status: Patient denies any tobacco usage or history of. - Family history:: not pertinent. - Hospitalizations: : No recent hospitalization is reported. Screenin:46 Abuse screen: Denies threats or abuse. Nutritional screening: No deficits noted. ea Tuberculosis screening: No symptoms or risk factors identified. Fall Risk None identified. Assessment: 04:47 General: Appears in no apparent distress. Behavior is appropriate for age. Pain:. Pain: ea Denies pain. Neuro: Level of Consciousness is awake, alert, obeys commands, Oriented to person, place, time. Cardiovascular: Patient's skin is warm and dry. Respiratory: Airway is patent Respiratory effort is even, unlabored, Respiratory pattern is regular, symmetrical. GI: Abdomen is non-distended. Derm: Skin is pink, warm \T\ dry. 05:55 Reassessment: Patient and/or family updated on plan of care and expected duration. Pain ea level reassessed. Patient is alert, oriented x 3, equal unlabored respirations, skin warm/dry/pink. 06:41 Reassessment: Patient and/or family updated on plan of care and expected duration. Pain ea level reassessed. Pt taken to CT. 07:00 Reassessment: RECD REPORT FROM [address]. 85YO WM P/W DIARRHEA. STOOL. SPECIMEN bp PENDING. CT RESULTS PENDING. 07:10 Reassessment: Report received from DOMINGO Argueta, awaiting CT results. jl7 07:33 Reassessment: Patient appears in no apparent distress at this time. Patient and/or jl7 family updated on plan of care and expected duration. Pain level reassessed. Patient is alert, oriented x 3, equal unlabored respirations, skin warm/dry/pink. Patient denies pain at this time. 09:38 Reassessment: No changes from previously documented assessment. Patient and/or family bp updated on plan of care and expected duration. Pain level reassessed. Patient is alert, oriented x 3, equal unlabored respirations, skin warm/dry/pink. ADMIT INITIATED. STOOL SPECIMEN TO LAB. 10:30 Reassessment: Patient appears in no apparent distress at this time. No changes from jl7 previously documented assessment. Patient and/or family updated on plan of care and expected duration. Pain level reassessed. Patient is alert, oriented x 3, equal unlabored respirations, skin warm/dry/pink. Vital Signs: 04:48 BP 150 / 75; Pulse 60; Resp 18; Temp 97.5; Pulse Ox 97% ; ea 06:05 BP 142 / 76; Pulse 74; Resp 18; Pulse Ox 95% on R/A; ea 07:00 BP 153 / 73; Pulse 78; Resp 16; Pulse Ox 95% ; bp 09:00 BP 145 / 71; Pulse 79; Resp 18; Pulse Ox 95% ; bp ED Course: 04:24 Patient arrived in ED. am2 04:24 Dinorah Lacy MD is Private Physician. am2 04:26 River Barnett MD is Attending Physician. rn 04:28 Ellie Parisi RN is Primary Nurse. ea 04:35 Triage completed. em 04:36 Arm band placed on. em 04:46 Patient has correct armband on for positive identification. Placed in gown. Bed in low ea position. Call light in reach. 04:46 Inserted saline lock: 20 gauge in right antecubital area, using aseptic technique. ea Blood collected. 07:08 Primary Nurse role handed off by Ellie Parisi RN jl7 07:08 Dory Vargas RN is Primary Nurse. jl7 07:09 Initial lab(s) drawn, by ED staff, sent to lab. jl7 07:33 Pulse ox on. NIBP on. jl7 08:14 Attending Physician role handed off by River Barnett MD ma2 08:14 Krunal Ryder MD is Attending Physician. ma2 09:33 Dinorah Lacy MD is Hospitalizing Provider. ma2 11:11 Stool Culture Sent. jl7 11:15 No provider procedures requiring assistance completed. Patient admitted, IV remains in jl7 place. intact, No redness/swelling at site. Administered Medications: 08:30 Drug: Flagyl 500 mg Volume: 100 ml; Route: IVPB; Rate: 200 ml/hr; Infused Over: 30 bp mins; Site: right forearm; 09:00 Follow up: Response: No adverse reaction; IV Status: Completed infusion jl7 09:14 Drug: LevaQUIN 500 mg Volume: 100 ml; Route: IVPB; Infused Over: 60 mins; Site: right jl7 forearm; 10:15 Follow up: Response: No adverse reaction; IV Status: Completed infusion jl7 Outcome: 09:34 Decision to Hospitalize by Provider. ma2 11:15 Admitted to Med/surg accompanied by tech, via wheelchair, room 228, with chart, Report jl7 called to DOMINGO HYLTON 11:15 Condition: stable 11:15 Discharge instructions given to patient, Instructed on the need for admit, Demonstrated understanding of instructions. 11:58 Patient left the ED. jl7 Signatures: Senthil Nath RN River Green MD MD rn Leal, Jahala, RN RN jl7 Kim Ayon am2 Ellie Parisi, RN Elías Banks ea, RN Krunal Mcclure MD MD ma2 Corrections: (The following items were deleted from the chart) 09:14 09:14 LevaQUIN 500 mg 100 ml IVPB in right antecubital over 60 mins 100 ml jl7 jl7
--- NOTE | 2020-05-21 09:35 | EDPHYS ---
Physician Documentation [facility] Name: Harsh Crowley Age: 85 yrs Sex: Male : 1935 Arrival Date: 05/21/2020 Time: 04:24 Bed 8 Private MD: Dinorah Lacy C ED Physician Krunal Ryder HPI: 05/21 04:46 This 85 yrs old Male presents to ER via Ambulatory with complaints of Bloody rn Stools, Diarrhea. 04:46 The patient presents to the emergency department with diarrhea. Onset: The rn symptoms/episode began/occurred 4 day(s) ago. Possible causes: unknown. The symptoms are aggravated by nothing. The symptoms are alleviated by nothing. Severity of symptoms: At their worst the symptoms were mild in the emergency department the symptoms are unchanged. The patient has experienced a previous episode. The patient has been recently seen at the [facility]. Reports 4 days of diarrhea, bloody at times but not with each bowel movement, from pink to red, not improving, seen here 2 days ago and discharged, reports continues. Not on blood thinners. + hx of cdiff colitis, but denies any recent abx or hospitalization. + mild lower abd discomfort. No hematemesis. . Historical: - Allergies: 04:36 Prevacid; em 04:36 Vancomycin; em - PMHx: 04:36 Anxiety; GERD; C-diff; Hypertension; em - PSHx: 04:36 Tonsillectomy; Hernia repair; cataracts; prostate; em - Immunization history:: Adult Immunizations up to date. - Social history:: Smoking status: Patient denies any tobacco usage or history of. - Family history:: not pertinent. - Hospitalizations: : No recent hospitalization is reported. ROS: 04:46 Constitutional: + fever Eyes: Negative for injury, pain, redness, and discharge, Neck: rn Negative for injury, pain, and swelling, Cardiovascular: Negative for chest pain, palpitations, and edema, Respiratory: Negative for shortness of breath, cough, wheezing, and pleuritic chest pain, Abdomen/GI: + lower abd pain, + diarrhea, + blood in stool : Negative for injury, bleeding, discharge, and swelling, MS/Extremity: Negative for injury and deformity, Skin: Negative for injury, rash, and discoloration, Neuro: Negative for headache, numbness, tingling, and seizure. Exam: 04:46 Constitutional: This is a well developed, well nourished patient who is awake, alert, rn and in no acute distress. Head/Face: Normocephalic, atraumatic. Eyes: Conjunctiva and sclera are non-icteric and not injected. ENT: Nares patent. No nasal discharge, no septal abnormalities noted. Tympanic membranes are normal and external auditory canals are clear. Oropharynx with no redness, swelling, or masses, exudates, or evidence of obstruction, uvula midline. Mucous membranes moist. Cardiovascular: Regular rate and rhythm. No pulse deficits. Respiratory: No increased work of breathing, no retractions or nasal flaring. Abdomen/GI: soft, mild left sided and suprapubic tenderness, no masses, no peritoneal signs. Skin: Warm, dry MS/ Extremity: Pulses equal, no cyanosis. Neurovascular intact. Full, normal range of motion. Equal circumference. Neuro: Awake and alert, GCS 15 09:32 Chest/axilla: Normal chest wall appearance and motion. +tender at L upper chest at ma2 site of painwith no deformity. No lesions are appreciated. Vital Signs: 04:48 BP 150 / 75; Pulse 60; Resp 18; Temp 97.5; Pulse Ox 97% ; ea 06:05 BP 142 / 76; Pulse 74; Resp 18; Pulse Ox 95% on R/A; ea 07:00 BP 153 / 73; Pulse 78; Resp 16; Pulse Ox 95% ; bp 09:00 BP 145 / 71; Pulse 79; Resp 18; Pulse Ox 95% ; bp MDM: 04:26 Patient medically screened. rn 06:57 Transition of care: After a detail discussion of the patient's case, care is rn transferred to Krunal Ryder MD. 09:33 Differential diagnosis: gastritis, viral gastroenteritis, gastroenteritis. Data ma2 reviewed: vital signs, nurses notes. Counseling: I had a detailed discussion with the patient and/or guardian regarding: the historical points, exam findings, and any diagnostic results supporting the discharge/admit diagnosis, the presence of at least one elevated blood pressure reading (>120/80) during this emergency department visit, the need for further work-up and treatment in the hospital. Response to treatment: the patient's symptoms have markedly improved after treatment. 02/02 04:39 Order name: Basic Metabolic Panel; Complete Time: 05:55 rn 05/21 04:39 Order name: CBC with Diff; Complete Time: 05:55 rn 05/21 04:39 Order name: Hepatic Function; Complete Time: 05:55 rn 05/21 04:39 Order name: Lipase; Complete Time: 05:55 rn 05/21 04:39 Order name: PT-INR; Complete Time: 05:23 rn 05/21 04:39 Order name: Ptt, Activated; Complete Time: 05:23 rn 05/21 04:45 Order name: Stool Culture rn 05/21 04:45 Order name: CDIFF rn 05/21 04:47 Order name: Stool Culture EDMS 05/21 04:47 Order name: C.difficile GDH Ag EDMS 05/21 04:57 Order name: Manual Differential; Complete Time: 05:55 EDMS 05/21 05:52 Order name: COVID-19 : Document "Date of Symptom Onset" if Symptomatic. tt3 05/21 06:19 Order name: CORONAVIRUS EDND 05/21 07:03 Order name: SARS-COV-2 RT PCR; Complete Time: 07:23 EDMS 05/21 04:39 Order name: IV Saline Lock; Complete Time: 04:47 rn 05/21 04:39 Order name: Labs collected and sent; Complete Time: 04:48 rn 05/21 04:39 Order name: CT Abd/Pelvis - PO and IV Contrast rn 05/21 08:16 Order name: CT; Complete Time: 08:30 EDMS Administered Medications: 08:30 Drug: Flagyl 500 mg Volume: 100 ml; Route: IVPB; Rate: 200 ml/hr; Infused Over: 30 bp mins; Site: right forearm; 09:00 Follow up: Response: No adverse reaction; IV Status: Completed infusion jl7 09:14 Drug: LevaQUIN 500 mg Volume: 100 ml; Route: IVPB; Infused Over: 60 mins; Site: right jl7 forearm; 10:15 Follow up: Response: No adverse reaction; IV Status: Completed infusion jl7 Disposition: 05/21/20 09:34 Hospitalization ordered by Dinorah Lacy for Inpatient Admission. Preliminary diagnosis are Diarrhea, unspecified, Infectious gastroenteritis and colitis, unspecified. - Bed requested for Telemetry/MedSurg (Inpatient). - Status is Inpatient Admission. jl7 - Condition is Stable. - Problem is new. - Symptoms are unchanged. Signatures: Dispatcher [employer] EDJoise Dias, RN DOMINGO dw Senthil Nath, RN River Green MD MD rn Leal, Jahala, RN RN jl7 Elías Hernandez, RN DOMINGO Krunal Ryder MD MD ma2 Corrections: (The following items were deleted from the chart) 11:08 09:34 Hospitalization Ordered by A Regino THOMPSON for Inpatient Admission. Preliminary dw diagnosis is Diarrhea, unspecified; Infectious gastroenteritis and colitis, unspecified. Bed requested for Telemetry/MedSurg (Inpatient). Status is Inpatient Admission. Condition is Stable. Problem is new. Symptoms are unchanged. ma2 11:58 11:08 05/21/2020 09:34 Hospitalization Ordered by A Regino THOMPSON for Inpatient Admission. jl7 Preliminary diagnosis is Diarrhea, unspecified; Infectious gastroenteritis and colitis, unspecified. Bed requested for Telemetry/MedSurg (Inpatient). Status is Inpatient Admission. Condition is Stable. Problem is new. Symptoms are unchanged. dw
[2020-05-21] MEDS: INSULIN -REGULAR HUMAN 50 UNIT/0.5 ML ML SQ SCH ×3 (11:30→20:45)
[2020-05-21 11:45] LABS: C.diff Antigen/Toxin Ag pos : Tox pos (NEG : NEG)
[2020-05-21 12:41] VITALS: BMI 18.0
[2020-05-22] MEDS: D5.45NS W/KCL 20MEQ 1,000 ML IV SCH ×4 (00:06→18:00)
[2020-05-22] MEDS: METRONIDAZOLE 500mg IVPB 500 MG/100 ML BAG IV SCH ×3 (00:07→17:05)
[2020-05-22 06:29] LABS: Absolute Lymphocytes (CBC) 1.3 K/uL (0.7-4.9); Basophils % 0.5 % (0-1.3); Hematocrit 37.6 % (39.6-49.0); Lymphocytes % 23.4 % (15.3-44.8); MPV 7.8 fL (7.6-11.3); RBC Red Blood Cell Count 4.53 M/uL (4.33-5.43)
[2020-05-22 06:42] LABS: Potassium 3.2 mmol/L (3.5-5.1)
[2020-05-22] MEDS: INSULIN -REGULAR HUMAN 50 UNIT/0.5 ML ML SQ SCH ×4 (07:30→20:45)
[2020-05-22] MEDS ORDERED: ALPRAZOLAM 0.25 MG TABLET PO ONE (07:30)
--- NOTE | 2020-05-22 07:42 | HP ---
Date of Admission: 05/21/2020 Chief Complaint: Diarrhea and feeling weak. History Of Present Illness: This is an 85-year-old very pleasant male patient with prior history of Clostridium difficile colitis over a year ago or so, was successfully treated, was doing fine in his usual state of health until last week to 2 weeks, started to have diarrhea. He came to emergency [facility] about a 2 days ago, after workup was done in the emergency room, which was unremarkable and he was sent home with outpatient followup instructions at my office. He came back again today with not feel ing any better and ongoing diarrhea. He has few bowel movements a day, not a large quantity but has some mucus in stool and occasional small amount of streaks of blood in stool. Denies any nausea or v omiting. No fever. No chills. Denies any abdominal pain. He feels weak with this complaint. Afte r he was evaluated, he was admitted to the hospital. Allergies: TO PREVACID CAUSING DIARRHEA AND VANCOMYCIN CAUSING RASH. Medications: List reviewed. Review of Systems: GI: As mentioned above. Constitutional: As mentioned above. All other systems reviewed and negative. Past Medical History: Significant for allergic rhinitis, hypertension, hyperlipidemia, gastroesophag eal reflux disease, liver cyst, diverticulosis, Clostridium difficile colitis, chronic kidney disease , benign prostatic hypertrophy, spinal stenosis of lumbar spine, and insomnia. Past Surgical History: Significant for tonsillectomy. Family History: Significant for mother had coronary artery disease. Brother had Parkinson disease a nd hypertension. Social History: Negative for smoking and alcohol use. Physical Examination: Vital Signs: Temperature 98.9, pulse 74, respiratory rate 20, blood pressure 153/63, oxygen saturati on 96%. Height 5 feet 7 inches, weight 115 pounds. General: Awake, alert, oriented, not in distress. HEENT: Head atraumatic, normocephalic. Conjunctivae nonerythematous. Sclerae white. Mouth, no thr ush or edema noted. Ears/Nose, no mass, lesion, discharge noted. Neck: Supple. No JVD, lymph nodes, bruit, thyromegaly noted. Lungs: Bilateral good equal air entry. Clear to auscultation. No rhonchi. No rales. Heart: Normal heart sounds, no murmur or gallop. Abdomen: Soft, bowel sounds normal. No guarding, rigidity, tenderness, mass, hepatosplenomegaly, di stention, or bruit noted. Extremities: No leg edema. No calf tenderness. Skin: No rash, ulcer, cellulitis. Lymphatics: No lymph node enlargement in neck, supraclavicular, infraclavicular region. Neuro: No focal neurological deficit. Chest: Unremarkable. External Genitalia: Deferred. Rectal: Deferred. Laboratory Data: White count 6.2, hemoglobin 12.9, platelets 244, 16% bands. INR 1.18. COVID-[address] negative. Liver function tests normal. Sodium 142, potassium 3.3, chloride 110, bicarb 27, BUN 1 3, creatinine 0.93, glucose 112. C diff test came back positive. CAT scan of the abdomen shows mild to moderate colitis changes with multiple liver cysts noted, 20 x 12 mm low density lesion in the pa ncreas and upon review of prior CT scan, this was present going as far back as 2014. Impression: 1.Clostridium difficile colitis. 2.Hypokalemia. 3.Hepatic cyst. 4.Hypertension. 5.Hyperlipidemia. 6.Gastroesophageal reflux disease. 7.Benign prostatic hypertrophy. 8.Lumbar spinal stenosis. Plan: We will admit the patient to hospital for further evaluation and management of this problem. We will give IV fluid per order, IV Flagyl will be given right now per order, starting tomorrow I erika l consider to change it to oral Flagyl depending on his condition. The patient was made aware of his recurrent problem with Clostridium difficile colitis. He has not used any antibiotics recently. If he does not respond adequately to metronidazole, then we will consider adding cholestyramine. He vargas d allergic reaction to oral vancomycin, which cause rash and itching in the past, so in the past he w as treated successfully with metronidazole. Details and plan of treatment discussed with the patient . ROBBIN/MODL Voice ID: [id number]
--- NOTE | 2020-05-22 11:51 | RAD REPORT ---
EXAM DESCRIPTION: MRI - Mri Abdomen W/Wo Cont - 05/22/2020 11:19 am CLINICAL HISTORY: pancreas mass vs cyst Abdominal pain COMPARISON: Abdomen Pelvis W Contrast dated 05/21/2020; Abdomen Pelvis W Contrast dated 10/26/2018 FINDINGS: Numerous small hepatic lesions are present likely representing benign cysts. The largest i s in the superior aspect of the right lobe measuring 16 mm. The spleen, adrenal glands and right kidn ey demonstrate no worrisome pathologic finding. Along the peripheral cortex of left kidney an 10 mm c ystic lesion is seen with the potential slight enhancement after contrast. At the site of concern in the midbody of the pancreas a small hypoenhancing lesion is present measuri ng 7 mm which demonstrates T2 hyperintensity. This favors a dilated pancreatic side branch or small I PMN. No significant pancreatic ductal dilatation evident. No bulky lymphadenopathy seen in the abdomen. No free fluid collections evident. IMPRESSION: 10 mm lesion in the body of the pancreas demonstrates T2 hyperintensity and likely repre sents a cystic lesion. Most likely possibilities would include a dilated pancreatic side branch versu s small IPMN. Recommend 6 month follow-up MRI abdomen for surveillance purposes. 7 mm peripherally located cystic lesion left kidney is probably a mildly complicated cyst. This can a lso be recesses at time of six-month follow-up MR imaging.
[2020-05-22] MEDS ORDERED: POTASSIUM CL SA 10 MEQ TAB PO ONE (12:00)
[2020-05-22 12:01] VITALS: O2SAT 97
[2020-05-22] MEDS: ENSURE ENLIVE 237 ML CAN PO SCH (20:45)
[2020-05-23] MEDS: METRONIDAZOLE 500mg IVPB 500 MG/100 ML BAG IV SCH ×2 (00:35→09:00)
[2020-05-23] MEDS: D5.45NS W/KCL 20MEQ 1,000 ML IV SCH (02:32)
--- NOTE | 2020-05-23 07:26 | PN ---
Date of Progress Note: 05/22/2020 Subjective: The patient was seen this morning for followup. No new complaints or problems reported by patient. Lying in bed, not in any distress. No nausea. No vomiting. Still has some diarrhea wi th greenish colored stool, no blood in it. His stool was noted to be loose but not watery. Objective: Vital Signs: Reviewed. HEENT: Unremarkable. Lungs: Clear to auscultation. Heart: Sounds normal. Abdomen: Soft. Bowel sounds normal. No guarding, rigidity, tenderness, or distention. Extremities: No leg edema. Impression: 1.Clostridium difficile colitis, recurrent. 2.Anxiety. 3.Pancreatic cyst. Plan: CT scan findings were discussed with the patient and he was advised to go ahead and get an MRI done of abdomen, which was done today, results reviewed. He has approximately 1 cm pancreatic cyst and this appears to be stable going back to 2014. We will just continue to monitor this and no need for any further intervention at this point. He also has renal cyst that will be monitored as well. For his Clostridium difficile colitis, we will continue IV metronidazole since he is allergic to vanc omycin. Plan is to discharge him to go home tomorrow and we did have to give him some Xanax prior to MRI because of anxiety problem. Reduce IV fluid rate to 50 cc/hour. ROBBIN/MODL Voice ID: [id number] Report ID: [id number]
[2020-05-23] MEDS: INSULIN -REGULAR HUMAN 50 UNIT/0.5 ML ML SQ SCH (07:30)
[2020-05-23] MEDS: ENSURE ENLIVE 237 ML CAN PO SCH (09:00)
[2020-05-23 09:11] VITALS: BP 143/67; TEMP 97.9
--- NOTE | 2020-05-24 11:39 | DS ---
Date of Discharge: 05/23/2020 Disposition: Discharged to go home. Physical Examination: HEENT: Unremarkable. Lungs: Clear to auscultation. Heart: Sounds normal. Abdomen: Soft. Bowel sounds normal. No guarding, rigidity, tenderness, distention. Extremities: No leg edema. Discharge Medications And Instructions: 1. Continue all prior home medications. 2. Take metronidazole 250 mg, patient to take 1 tablet by mouth 3 times a day. 3. Follow up at my office in 1 week. Laboratory Data: Upon admission on 05/21/2020; white count 6.2, hemoglobin 12.9, platelets 244. On 05/22/2020; white count 5.5, hemoglobin 12.5, platelets 241. Chemistry on 05/22/2020; sodium 144, potassium 3.2, chloride 110, bicarb 30, BUN 6, creatinine 0.89, glucose 113, magnesium 2. Upon admission; sodium 142, potassium 3.3, chloride 110, bicarb 27, BUN 13, creatinine 0.93, glucose 112. Liver function tests unremarkable. COVID-19 did come back positive. Hospital Course: An 85-year-old male patient admitted to the hospital with complaints of diarrhea and feeling weak. Please see dictated H and P for more information. After patient was admitted to the hospital, he was treated with IV metronidazole for his Clostridium difficile colitis problem. He has prior history of Clostridium difficile colitis, which was subsequently treated with metronidazole. Overall, his condition has improved. He is tolerating diet very well. His stool is loose but not watery. His CAT scan of the abdomen shows pancreatic cyst and on the CAT scan it was reported as 20 x 12 mm area of low- density lesion and this was noted in prior CAT scan including 2014 as well. We did obtain MRI of abdomen and it shows about 1 cm area of pancreatic cyst, also evidence of renal cyst and will consider to repeat MRI in 1 year. The patient was discharged to go home in stable condition with above-mentioned medication instruction. Final Diagnoses: 1. Clostridium difficile colitis, recurrent. 2. Hypokalemia. 3. Anemia, unspecified. 4. Pancreatic cyst. 5. Hepatic cyst. 6. Renal cyst. 7. Hypertension. 8. Hyperlipidemia. 9. Gastroesophageal reflux disease. 10. Benign prostatic hypertrophy. 11. Anxiety. ROBBIN/MODL Voice ID: [id number] Report ID: [id number] MTDD
== END 2020-05-23 10:25 | disposition home or self-care (01) | DRG 372 ==
LOC: ER 04:23 → ERHOLD 09:23 → 2ND 11:26
PROVIDERS: ADMIT Internal Medicine; ATTEND Internal Medicine
DX: A04.72 Enterocolitis due to Clostridium difficile, not specified as recurrent (principal); K86.2 Cyst of pancreas; K21.9 Gastro-esophageal reflux disease without esophagitis; I10 Essential (primary) hypertension; E78.5 Hyperlipidemia, unspecified; E87.6 Hypokalemia; F41.9 Anxiety disorder, unspecified; D64.9 Anemia, unspecified; N28.1 Cyst of kidney, acquired; K76.89 Other specified diseases of liver; N40.0 Benign prostatic hyperplasia without lower urinary tract symptoms; M48.061 Spinal stenosis, lumbar region without neurogenic claudication; Z88.1 Allergy status to other antibiotic agents; Z88.8 Allergy status to other drugs, medicaments and biological substances; Z20.822 Contact with and (suspected) exposure to COVID-19
CPT/HCPCS: 36415; 74177; 80048; 80053; 80076; 82947; 83690; 83735; 85025; 85610; 85730; 87045; 87046; 87324; 87449; 96360; 96365; 96367; 99284; 99285; J7030; Q9967; U0003

== ENCOUNTER 2020-06-10 01:23 | Inpatient (IN) | payer OTHER, BC ==
[2020-06-10] MEDS ORDERED: NA CHLORIDE 0.9% 1,000 ML ONE ×2 (02:29→04:23)
[2020-06-10 02:36] LABS: Absolute Lymphocytes (CBC) 1.1 K/uL (0.7-4.9); Basophils % 0.6 % (0-1.3); Hematocrit 37.6 % (39.6-49.0); MPV 7.8 fL (7.6-11.3); RBC Red Blood Cell Count 4.45 M/uL (4.33-5.43)
[2020-06-10 03:24] LABS: Urine Blood NEGATIVE (NEG); Urine Glucose NEGATIVE (NEG); Urine Protein NEGATIVE (NEG); Urine Specific Gravity >1.030 (1.005-1.030)
[2020-06-10 03:24] LABS: Bilirubin Direct 0.2 mg/dL (0-0.2); Bilirubin Total 0.7 mg/dL (0.2-1.0); Protein, Total 6.6 g/dL (6.4-8.2)
[2020-06-10 03:50] LABS: Blood Morphology Comment NOT SEEN (NOT SEEN); Platelet Estimate ADEQ
[2020-06-10] MEDS ORDERED: METRONIDAZOLE 500mg IVPB 500 MG/100 ML BAG IV ONE (04:18)
[2020-06-10] MEDS ORDERED: CEFTRIAXONE/SWI 1gm 1 GM/10 ML SYR ONE (04:18)
--- NOTE | 2020-06-10 05:56 | EDPHYS ---
Physician Documentation [facility] Name: Harsh Crowley Age: 85 yrs Sex: Male : 1935 Arrival Date: 06/10/2020 Time: 01:24 Bed 4 Private MD: Nasim Lacy ED Physician Jayro Chan HPI: 06/10 02:08 This 85 yrs old Male presents to ER via Wheelchair with complaints of mh7 Diarrhea, General Weakness. 02:08 The patient presents to the emergency department with diarrhea, that is intermittent. mh7 Onset: The symptoms/episode began/occurred yesterday. Possible causes: flare up of bowel problem, history of C. Difficile, history of C. Difficile. The symptoms are aggravated by nothing. The symptoms are alleviated by nothing. Associated signs and symptoms: Pertinent negatives: abdominal pain, anorexia, belching, constipation, dysuria, fever, flatulence, GI bleeding, hematuria, nausea, vomiting. Severity of symptoms: At their worst the symptoms were moderate yesterday, in the emergency department the symptoms are unchanged. The patient has experienced similar episodes in the past, multiple times. Historical: - Allergies: 01:55 Prevacid; rr5 01:55 Vancomycin; rr5 - Home Meds: 01:55 amlodipine oral 5mg NEEDED if Systolic B.P is over 150 [Active]; atorvastatin 10 mg rr5 Oral tab 1 tab once daily [Active]; B-Complex Oral tab daily [Active]; carvedilol 6.25 mg Oral tab 1 tab 2 times per day [Active]; Claritin 10 mg Oral tab 1 tab once daily [Active]; famotidine 40 mg Oral tab 1 tab nightly [Active]; Immunity guard 1 packet daily [Active]; mirtazapine 7.5 mg Oral tab nightly [Active]; pearls complete 1 PO daily [Active]; Ocuvite Adult +50 1 Capsule daily Oral [Active]; alprazolam 0.25 mg Oral tab 1 tab QHS [Active]; losartan-hydrochlorothiazide 50-12.5 mg Oral tab 1 tab once daily [Active]; - PMHx: 01:55 Anxiety; C-diff; GERD; Hypertension; rr5 - PSHx: 01:55 Tonsillectomy; prostate green light laser; cataracts; rr5 - Immunization history:: Adult Immunizations up to date. - Social history:: Smoking status: unknown. ROS: 02:08 Constitutional: Negative for fever, chills, and weight loss, Eyes: Negative for injury, mh7 pain, redness, and discharge, ENT: Negative for injury, pain, and discharge, Neck: Negative for injury, pain, and swelling, Cardiovascular: Negative for chest pain, palpitations, and edema, Respiratory: Negative for shortness of breath, cough, wheezing, and pleuritic chest pain, Back: Negative for injury and pain, : Negative for injury, bleeding, discharge, and swelling, MS/Extremity: Negative for injury and deformity, Skin: Negative for injury, rash, and discoloration, Neuro: Negative for headache, weakness, numbness, tingling, and seizure, Psych: Negative for depression, anxiety, suicide ideation, homicidal ideation, and hallucinations, Allergy/Immunology: Negative for hives, rash, and allergies, Endocrine: Negative for neck swelling, polydipsia, polyuria, polyphagia, and marked weight changes, Hematologic/Lymphatic: Negative for swollen nodes, abnormal bleeding, and unusual bruising. Exam: 02:08 Constitutional: This is a well developed, well nourished patient who is awake, alert, mh7 and in no acute distress. Head/Face: Normocephalic, atraumatic. Eyes: Pupils equal round and reactive to light, extra-ocular motions intact. Lids and lashes normal. Conjunctiva and sclera are non-icteric and not injected. Cornea within normal limits. Periorbital areas with no swelling, redness, or edema. Neck: Trachea midline, no thyromegaly or masses palpated, and no cervical lymphadenopathy. Supple, full range of motion without nuchal rigidity, or vertebral point tenderness. No Meningismus. Chest/axilla: Normal chest wall appearance and motion. Nontender with no deformity. No lesions are appreciated. Cardiovascular: Regular rate and rhythm with a normal S1 and S2. No gallops, murmurs, or rubs. Normal PMI, no JVD. No pulse deficits. Respiratory: Lungs have equal breath sounds bilaterally, clear to auscultation and percussion. No rales, rhonchi or wheezes noted. No increased work of breathing, no retractions or nasal flaring. Abdomen/GI: Soft, non-tender, with normal bowel sounds. No distension or tympany. No guarding or rebound. No evidence of tenderness throughout. Back: No spinal tenderness. No costovertebral tenderness. Full range of motion. Skin: Warm, dry with normal turgor. Normal color with no rashes, no lesions, and no evidence of cellulitis. MS/ Extremity: Pulses equal, no cyanosis. Neurovascular intact. Full, normal range of motion. Neuro: Awake and alert, GCS 15, oriented to person, place, time, and situation. Cranial nerves II-XII grossly intact. Motor strength 5/5 in all extremities. Sensory grossly intact. Cerebellar exam normal. Normal gait. Psych: Awake, alert, with orientation to person, place and time. Behavior, mood, and affect are within normal limits. Vital Signs: 01:50 BP 139 / 65; Pulse 83; Resp 16; Temp 98.3; Pulse Ox 97% ; Weight 52.16 kg; Height 5 ft. rr5 7 in. (170.18 cm); Pain 0/10; 03:15 BP 132 / 66; Pulse 88; Resp 16; Pulse Ox 96% ; rr5 03:20 BP 125 / 75; Pulse 91; Resp 16; Pulse Ox 95% ; rr5 04:38 BP 136 / 60; Pulse 99; Resp 17; Pulse Ox 97% ; rr5 05:42 BP 136 / 63; Pulse 80; Resp 16; Temp 97.8; Pulse Ox 98% ; rr5 06:23 BP 136 / 83; Pulse 86; Resp 17; Pulse Ox 96% ; rr5 07:45 BP 128 / 78; Pulse 78; Resp 15; Pulse Ox 99% on R/A; hb 01:50 Body Mass Index 18.01 (52.16 kg, 170.18 cm) rr5 MDM: 05:52 Differential diagnosis: viral gastroenteritis, gastroenteritis. Data reviewed: vital 7 signs, nurses notes, old medical records, lab test result(s), amylase and lipase, CBC, electrolytes, urinalysis, radiologic studies, CT scan. Data interpreted: Pulse oximetry: on room air is 98 %. Interpretation: normal. Counseling: I had a detailed discussion with the patient and/or guardian regarding: the historical points, exam findings, and any diagnostic results supporting the discharge/admit diagnosis, the presence of at least one elevated blood pressure reading (>120/80) during this emergency department visit, lab results, radiology results, the need for further work-up and treatment in the hospital. Response to treatment: the patient's symptoms have mildly improved after treatment. 05:55 Patient medically screened. [facility] 06/10 02:05 Order name: Basic Metabolic Panel [facility] 06/10 02:05 Order name: CBC with Diff; Complete Time: 03:53 [facility] 06/10 02:05 Order name: Hepatic Function [facility] 06/10 02:05 Order name: Lipase [facility] 06/10 02:06 Order name: Basic Metabolic Panel; Complete Time: 03:38 [facility] 06/10 02:06 Order name: Liver (Hepatic) Function; Complete Time: 03:38 [facility] 06/10 02:06 Order name: Lipase; Complete Time: 03:38 [facility] 06/10 02:07 Order name: C.difficile [facility] 06/10 02:08 Order name: C.difficile [facility] Ag [facility] 06/10 03:03 Order name: Manual Differential; Complete Time: 03:53 [facility] 06/10 03:14 Order name: Urine Dipstick--Ancillary (enter results); Complete Time: 03:38 [facility] 06/10 04:00 Order name: Lactate; Complete Time: 05:00 [facility] 06/10 04:00 Order name: Procalcitonin; Complete Time: 05:48 [facility] 06/10 04:26 Order name: Blood Culture Adult (2) rr5 06/10 02:05 Order name: IV Saline Lock; Complete Time: 02:31 [facility] 06/10 02:05 Order name: Labs collected and sent; Complete Time: 02:31 [facility] 06/10 02:05 Order name: Urine Dipstick-Ancillary (obtain specimen); Complete Time: 03:13 [facility] 06/10 03:20 Order name: CT Abd/Pelvis - IV Contrast Only [facility] 06/10 06:06 Order name: CONS Pharmacy Consult [facility] 06/10 06:06 Order name: Basic Metabolic Panel [facility] 06/10 06:06 Order name: Basic Metabolic Panel [facility] 06/10 06:06 Order name: NPO [facility] 06/10 06:06 Order name: CBC with Automated Diff [facility] 06/10 06:06 Order name: CBC with Automated Diff [facility] 06/10 07:51 Order name: SARS-COV-2 RT PCR EDMS Administered Medications: 02:20 Drug: NS 0.9% 1000 ml Route: IV; Rate: 1000 ml; Site: right forearm; rr5 03:14 Follow up: Response: No adverse reaction; IV Status: Completed infusion; IV Intake: rr5 1000ml 04:20 Drug: NS 0.9% 1000 ml Route: IV; Rate: 1000 ml; Site: right forearm; rr5 05:41 Follow up: Response: No adverse reaction; IV Status: Completed infusion; IV Intake: rr5 1000ml 04:45 Drug: Rocephin - (cefTRIAXone) 1 grams Route: IVPB; Infused Over: 30 mins; Site: right rr5 forearm; 05:00 Follow up: Response: No adverse reaction; IV Status: Completed infusion; IV Intake: [id number] 05:02 Drug: Flagyl 500 mg Volume: 100 ml; Route: IVPB; Rate: 200 ml/hr; Infused Over: 30 rr5 mins; Site: right forearm; 05:30 Follow up: Response: No adverse reaction; IV Status: Completed infusion; IV Intake: rr5 100ml Disposition: 06/10/20 05:55 Hospitalization ordered by Nasim Lacy for Inpatient Admission. Preliminary diagnosis are Colitis, Leukocytosis, Dehydration. - Bed requested for Telemetry/MedSurg (Inpatient). - Status is Inpatient Admission. hb - Condition is Stable. - Problem is an acute exacerbation. - Symptoms have improved. Signatures: Dispatcher [employer] EDMS Liza Blankenship Alon Escobar, MONOTYPE MACHINIST-C MONOTYPE MACHINIST-Cla1 Courtney Chamberlain RN RN Apolinar Garcia RN RN rr5 Jayro Chan MD MD mh7 Corrections: (The following items were deleted from the chart) 07:10 06:19 CORONAVIRUS+MR.LAB.BRZ ordered. EDAL EDMS 08:04 05:55 Hospitalization Ordered by Nasim Lacy MD for Inpatient Admission. Preliminary bd diagnosis is Colitis; Leukocytosis; Dehydration. Bed requested for Telemetry/MedSurg (Inpatient). Status is Inpatient Admission. Condition is Stable. Problem is an acute exacerbation. Symptoms have improved. mh7 08:05 08:04 06/10/2020 05:55 Hospitalization Ordered by Nasim Lacy MD for Inpatient bd Admission. Preliminary diagnosis is Colitis; Leukocytosis; Dehydration. Bed requested for [facility] ER HOLD. Status is Inpatient Admission. Condition is Stable. Problem is an acute exacerbation. Symptoms have improved. bd 08:57 08:05 06/10/2020 05:55 Hospitalization Ordered by Nasim Lacy MD for Inpatient hb Admission. Preliminary diagnosis is Colitis; Leukocytosis; Dehydration. Bed requested for Telemetry/MedSurg (Inpatient). Status is Inpatient Admission. Condition is Stable. Problem is an acute exacerbation. Symptoms have improved. bd
--- NOTE | 2020-06-10 05:56 | ER ---
Nurse's Notes [facility] Name: Harsh Crowley Age: 85 yrs Sex: Male : 1935 Arrival Date: 06/10/2020 Time: 01:24 Bed 4 Private MD: Nasim Lacy Diagnosis: Colitis;Leukocytosis;Dehydration Presentation: 06/10 01:50 Chief complaint: Patient states: started to have diarrhea and feeling weak today around rr5 3 PM, 3x watery stool. about 4 weeks ago have been diagnosed of C.Diff they prescribed metronidazole 250 mg/ 3x a day. denies fever, nausea or vomiting. 01:50 Coronavirus screen: Client denies travel out of the [place] in the last 14 days. At this rr5 time, the client does not indicate any symptoms associated with coronavirus-19. Ebola Screen: Patient negative for fever greater than or equal to 101.5 degrees Fahrenheit, and additional compatible Ebola Virus Disease symptoms Patient denies exposure to infectious person. Patient denies travel to an Ebola-affected area in the 21 days before illness onset. Initial Sepsis Screen: Does the patient meet any 2 criteria? No. Patient's initial sepsis screen is negative. Does the patient have a suspected source of infection? Yes: Acute abdominal pain. Risk Assessment: Do you want to hurt yourself or someone else? Patient reports no desire to harm self or others. Onset of symptoms was June 09, 2020 at 15:00. 01:50 Method Of Arrival: Wheelchair rr5 01:50 Acuity: KRISTEN 3 rr5 Historical: - Allergies: 01:55 Prevacid; rr5 01:55 Vancomycin; rr5 - Home Meds: 01:55 amlodipine oral 5mg NEEDED if Systolic B.P is over 150 [Active]; atorvastatin 10 mg rr5 Oral tab 1 tab once daily [Active]; B-Complex Oral tab daily [Active]; carvedilol 6.25 mg Oral tab 1 tab 2 times per day [Active]; Claritin 10 mg Oral tab 1 tab once daily [Active]; famotidine 40 mg Oral tab 1 tab nightly [Active]; Immunity guard 1 packet daily [Active]; mirtazapine 7.5 mg Oral tab nightly [Active]; pearls complete 1 PO daily [Active]; Ocuvite Adult +50 1 Capsule daily Oral [Active]; alprazolam 0.25 mg Oral tab 1 tab QHS [Active]; losartan-hydrochlorothiazide 50-12.5 mg Oral tab 1 tab once daily [Active]; - PMHx: 01:55 Anxiety; C-diff; GERD; Hypertension; rr5 - PSHx: 01:55 Tonsillectomy; prostate green light laser; cataracts; rr5 - Immunization history:: Adult Immunizations up to date. - Social history:: Smoking status: unknown. Screenin:57 Abuse screen: Denies threats or abuse. Denies injuries from another. Nutritional rr5 screening: No deficits noted. Tuberculosis screening: No symptoms or risk factors identified. Fall Risk IV access (20 points). Total Hernandez Fall Scale indicates No Risk (0-24 pts). Assessment: 02:29 General: Appears in no apparent distress. uncomfortable, Behavior is calm, cooperative, rr5 appropriate for age, Reports fatigue for. Pain: Denies pain. Neuro: Level of Consciousness is awake, alert, obeys commands, Oriented to person, place, time, situation. Cardiovascular: Capillary refill < 3 seconds Patient's skin is warm and dry. Respiratory: Airway is patent Respiratory effort is even, unlabored, Respiratory pattern is regular, symmetrical. GI: Abdomen is flat, non-distended, Reports diarrhea. : No signs and/or symptoms were reported regarding the genitourinary system. EENT: No signs and/or symptoms were reported regarding the EENT system. Derm: Skin is intact, is healthy with good turgor, Skin temperature is warm. Musculoskeletal: Capillary refill < 3 seconds. 03:20 Reassessment: Patient appears in no apparent distress at this time. Patient is alert, rr5 oriented x 3, equal unlabored respirations, skin warm/dry/pink. awaiting for laboratory results. 04:10 Reassessment: Patient appears in no apparent distress at this time. Patient is alert, rr5 oriented x 3, equal unlabored respirations, skin warm/dry/pink. back from CT scan ED provider with additional orders made. 05:35 Reassessment: Patient appears in no apparent distress at this time. Patient is alert, rr5 oriented x 3, equal unlabored respirations, skin warm/dry/pink. awaiting for review, resting eyes closed breathing spontaneously at room air. 06:22 Reassessment: Patient appears in no apparent distress at this time. Patient and/or rr5 family updated on plan of care and expected duration. Pain level reassessed. Patient is alert, oriented x 3, equal unlabored respirations, skin warm/dry/pink. agreed for the plan of admission. 07:30 Reassessment: Patient appears in no apparent distress at this time. Patient and/or hb family updated on plan of care and expected duration. Pain level reassessed. Patient is alert, oriented x 3, equal unlabored respirations, skin warm/dry/pink. Vital Signs: 01:50 BP 139 / 65; Pulse 83; Resp 16; Temp 98.3; Pulse Ox 97% ; Weight 52.16 kg; Height 5 ft. rr5 7 in. (170.18 cm); Pain 0/10; 03:15 BP 132 / 66; Pulse 88; Resp 16; Pulse Ox 96% ; rr5 03:20 BP 125 / 75; Pulse 91; Resp 16; Pulse Ox 95% ; rr5 04:38 BP 136 / 60; Pulse 99; Resp 17; Pulse Ox 97% ; rr5 05:42 BP 136 / 63; Pulse 80; Resp 16; Temp 97.8; Pulse Ox 98% ; rr5 06:23 BP 136 / 83; Pulse 86; Resp 17; Pulse Ox 96% ; rr5 07:45 BP 128 / 78; Pulse 78; Resp 15; Pulse Ox 99% on R/A; hb 01:50 Body Mass Index 18.01 (52.16 kg, 170.18 cm) rr5 ED Course: 01:24 Patient arrived in ED. am2 01:24 Nasim Lacy MD is Private Physician. am2 01:47 Jeffy Parrish RN is Primary Nurse. rv 01:47 Jayro Chan MD is Attending Physician. mh7 01:54 Triage completed. rr5 02:10 Initial lab(s) drawn, by [employer], sent to lab. rr5 02:15 Inserted saline lock: 20 gauge in right forearm, using aseptic technique. rr5 02:15 Patient has correct armband on for positive identification. Placed in gown. Bed in low rr5 position. Call light in reach. industrial sales representative on. Pulse ox on. NIBP on. 02:15 Warm blanket given. rr5 02:29 Arm band placed on right wrist. rr5 03:15 stool specimen sent. rr5 03:17 Urine collected: clean catch specimen, clear. rr5 04:07 CT Abd/Pelvis - IV Contrast Only In Process Unspecified. EDMS 05:54 Nasim Lacy MD is Hospitalizing Provider. mh7 06:22 COVID swab sent to lab. rr5 06:22 No provider procedures requiring assistance completed. Patient admitted, IV remains in rr5 place. intact, No redness/swelling at site. Administered Medications: 02:20 Drug: NS 0.9% 1000 ml Route: IV; Rate: 1000 ml; Site: right forearm; rr5 03:14 Follow up: Response: No adverse reaction; IV Status: Completed infusion; IV Intake: rr5 1000ml 04:20 Drug: NS 0.9% 1000 ml Route: IV; Rate: 1000 ml; Site: right forearm; rr5 05:41 Follow up: Response: No adverse reaction; IV Status: Completed infusion; IV Intake: rr5 1000ml 04:45 Drug: Rocephin - (cefTRIAXone) 1 grams Route: IVPB; Infused Over: 30 mins; Site: right rr5 forearm; 05:00 Follow up: Response: No adverse reaction; IV Status: Completed infusion; IV Intake: 41ntuv4 05:02 Drug: Flagyl 500 mg Volume: 100 ml; Route: IVPB; Rate: 200 ml/hr; Infused Over: 30 rr5 mins; Site: right forearm; 05:30 Follow up: Response: No adverse reaction; IV Status: Completed infusion; IV Intake: rr5 100ml Intake: 03:14 IV: 1000ml; Total: 1000ml. rr5 05:00 IV: 50ml; Total: 1050ml. rr5 05:30 IV: 100ml; Total: 1150ml. rr5 05:41 IV: 1000ml; Total: 2150ml. rr5 Output: 03:20 Stool: 1 (Loose Stool) ; Total: 0ml. rr5 05:00 Stool: 1 (Loose Stool) ; Total: 0ml. rr5 06:00 Stool: 1 (Loose Stool) ; Total: 0ml. rr5 Outcome: 05:55 Decision to Hospitalize by Provider. mh7 08:05 Admitted to ER Hold. Please see [facility] for further documentation. hb 08:05 Condition: stable 08:05 Instructed on the need for admit, Demonstrated understanding of instructions. 08:57 Patient left the ED. hb Signatures: Dispatcher [employer] EDCourtney Schwarz RN RN hb Moreno, Amanda am2 Jeffy Parrish RN Apolinar Brooks RN RN rr5 Jayro Chan MD MD mh7
[2020-06-10] MEDS ORDERED: MORPHINE 2 MG/ML SYR IV PRN (06:01)
[2020-06-10] MEDS ORDERED: ONDANSETRON 4 MG/2 ML VIAL IV PRN (06:01)
[2020-06-10] MEDS ORDERED: ACETAMINOPHEN 500 MG TAB PO PRN (06:01)
[2020-06-10] MEDS ORDERED: CEFTRIAXONE 1 GM/NS 50 ML 1 GM/50 ML BAG IV SCH (09:00)
[2020-06-10] MEDS: D5 0.45 NS 1,000 ML IV SCH ×2 (09:20→16:57)
[2020-06-10 10:01] VITALS: BMI 19.1
--- NOTE | 2020-06-10 11:22 | RAD REPORT ---
EXAM DESCRIPTION: CT ABDOMEN AND PELVIS WITH CONTRAST CLINICAL HISTORY: Diarrhea, colitis COMPARISON: 05/21/2020 TECHNIQUE: CT of the abdomen and pelvis performed following IV administration of iodinated contras t. FINDINGS: Lung Bases: Linear right basilar opacities. Likely pectus deformity. Right middle lobe [place]. Bones: Mild degenerative change of the spine. Osteoarthritic change of the hips. Abdomen: Liver: The liver has normal size and density. No intrahepatic biliary dilatation. Hepatic cysts. Gallbladder: No calcified gallstones. Spleen, Pancreas, and Adrenal Glands: Stable hypodensity in the pancreas measuring 1.0 cm. Spleen a nd adrenal glands are unremarkable. Kidneys: No hydronephrosis or obstructing calculus. Mild perinephric fat stranding. Multiple bila teral renal cysts. Vasculature: Aortoiliac atherosclerosis. IVC is unremarkable. The portal vein is patent. The proxim al visceral and renal arteries are patent. Stomach: The stomach and duodenum have normal course. Other: No free intraperitoneal air. No free fluid or lymphadenopathy. Pelvis: Bladder: Mild wall thickening and trabeculations of the urinary bladder Bowel: Wall thickening of the sigmoid colon and rectum. Scattered diverticula throughout the colon. No dilated loops of bowel. Appendix: No identified. Pelvis: Enlarged prostate. IMPRESSION: 1. Wall thickening of the sigmoid colon and rectum. These findings could be seen with no nspecific proctocolitis. 2. Enlarged prostate. 3. Wall thickening and trabeculation appearance of the urinary bladder. This may related to chronic b ladder outlet obstruction or cystitis. 4. Diverticulosis without evidence of acute diverticulitis. 5. Stable 1.0 cm hypodensity in the head of the pancreas previously evaluated with MRI possibly repre senting a mildly prominent sidebranch duct versus small IPMN. Continued MRI follow-up in 5 months rec ommended. This exam was performed according to our departmental dose-optimization program, which includes autom ated exposure control, adjustment of the mA and/or kV according to patient size and/or use of iterati ve reconstruction technique. Electronically signed by: Blane House 06/10/2020 4:25 AM HEART SPECIALIST Due to temporary technical issues with the PACS/Fluency reporting system, reports are being signed by the in house radiologist without review as a courtesy to ensure prompt reporting. The interpreting r adiologist is fully responsible for the content of the report.
[2020-06-10] MEDS: METRONIDAZOLE 500mg IVPB 500 MG/100 ML BAG IV SCH ×3 (11:24→23:50)
[2020-06-10 12:33] LABS: C.diff Antigen/Toxin Ag pos : Tox pos (NEG : NEG)
[2020-06-11] MEDS: D5 0.45 NS 1,000 ML IV SCH ×2 (03:00→09:15)
[2020-06-11 04:30] LABS: Basophils % 0.5 % (0-1.3); Lymphocytes % 9.6 % (15.3-44.8); RBC Red Blood Cell Count 4.05 M/uL (4.33-5.43)
[2020-06-11 04:47] LABS: BUN Blood Urea Nitrogen 6 mg/dL (7-18); Bicarbonate 27 mmol/L (21-32); Glucose Level 123 mg/dL (74-106); Sodium Level 141 mmol/L (136-145)
[2020-06-11] MEDS ORDERED: CEFTRIAXONE/SWI 1gm 1 GM/10 ML SYR IV SCH (05:00)
[2020-06-11] MEDS: METRONIDAZOLE 500mg IVPB 500 MG/100 ML BAG IV SCH ×3 (05:22→17:47)
--- NOTE | 2020-06-11 08:31 | HP ---
Date of Admission: 06/10/2020 Chief Complaint: Diarrhea and feeling weak. History Of Present Illness: This is an 85-year-old pleasant male patient, who was in the hospital on May 21, 2020 with diarrhea and feeling weak and at that time, he was diagnosed as having Clostridium difficile colitis. He had problem with Clostridium difficile colitis sometime last year, which was few months ago and this was his recurrent problem on May 21 and he did not have any antibiotics treatment prior to this particular episode. He was treated with metronidazole and he is still on metronidazole as prescribed along with cholestyramine which was added on outpatient basis recently because of his diarrhea complaint. The patient cannot take vancomycin because he is allergic to it. He was actually getting better as he said until yesterday all of a sudden diarrhea got worse to the extent that he had a bowel movement the way he describes about every 15 to 20 minutes and stool is soft to loose. No abdominal pain. No nausea. No vomiting. No bleeding. He is feeling very weak with this. After he came into emergency room, he was admitted to the hospital. When I saw him this morning, he was still in the emergency room, not in any distress. Allergies: TO PREVACID CAUSING DIARRHEA AND VANCOMYCIN CAUSING RASH. Medications: List reviewed. Review of Systems: GI: As mentioned above. Constitutional: As mentioned above. All other systems reviewed and negative. Past Medical History: Significant for Clostridium difficile colitis, allergic rhinitis, hypertension, hyperlipidemia, gastroesophageal reflux disease, liver cysts, diverticulosis, benign prostatic hypertrophy, spinal stenosis of lumbar spine, insomnia, and chronic kidney disease. Past Surgical History: Significant for tonsillectomy. Family History: Significant for mother had coronary artery disease. Brother had Parkinson disease and hypertension. Social History: Negative for smoking and alcohol use. Physical Examination: Vital Signs: Height 5 feet 7 inches, weight 115 pounds, temperature 96.8, pulse 88, blood pressure 132/66. General: The patient appears weaker than normal, not in any distress. HEENT: Head atraumatic, normocephalic. Conjunctivae nonerythematous. Sclerae white. Mouth, no thrush or edema noted. Ears/Nose, no mass, lesion, discharge noted. Neck: Supple. No JVD, lymph nodes, bruit, thyromegaly noted. Lungs: Bilateral good equal air entry. Clear to auscultation. No rhonchi. No rales. Heart: Normal heart sounds, no murmur or gallop. Abdomen: Soft, bowel sounds normal. No guarding, rigidity, tenderness, mass, hepatosplenomegaly, distention, or bruit noted. Extremities: No leg edema. No calf tenderness. Skin: No rash, ulcer, cellulitis. Lymphatics: No lymph node enlargement in neck, supraclavicular, infraclavicular region. Neuro: No focal neurological deficit. Chest: Unremarkable. External Genitalia: Deferred. Rectal: Deferred. Laboratory Data: White count 18.1, hemoglobin 12.6, platelets 279. Sodium 139, potassium 4, chloride 106, bicarb 29, BUN 14, creatinine 0.89, glucose 119. Liver function tests unremarkable. Lipase 144. Procalcitonin 0.07. Lactic acid 1.4. Urinalysis negative. Impression: 1. Clostridium difficile colitis, recurrent. 2. Volume depletion. 3. Anemia. 4. Hypertension. 5. Hyperlipidemia. 6. Gastroesophageal reflux disease. 7. Diverticulosis. 8. Benign prostatic hypertrophy. 9. Lumbar spinal stenosis. 10. Insomnia. Plan: Admit the patient to the hospital for further evaluation and management of this problem. The patient is appropriate for inpatient and is expected to spend 2 midnights in hospital. We will go ahead and give him IV fluid. Give IV metronidazole and I will look into availability of different antibiotic Dificid, which will be 200 mg 2 times a day, if it is available in our hospital pharmacy. Then, we should consider trying that medication since patient has not improved now with metronidazole because he is not able to take vancomycin because of history of allergic reaction. I will see him tomorrow for followup. ROBBIN/LOUISA Voice ID: [id number] MTDD
[2020-06-11] MEDS ORDERED: POTASSIUM CL SA 10 MEQ TAB PO ONE ×2 (09:00→21:00)
--- NOTE | 2020-06-11 23:01 | PN ---
Date of Progress Note: 06/11/2020 Subjective: The patient was seen this morning for followup. No new complaints or problems reported by the patient except he continues to have diarrhea. He had about 4 to 5 bowel movements during dayt lc yesterday and about 4 bowel movements during nighttime. His stool is loose. No blood in stool. Objective: Vital Signs: Reviewed. HEENT: Unremarkable. Lungs: Clear to auscultation. Heart: Sounds normal. Abdomen: Soft. Bowel sounds normal. No guarding, rigidity, tenderness, or distention. Extremities: No leg edema. Laboratory Data: White count was 9.9, hemoglobin was 11.7, and a platelet count of 234. Chemistry s howed sodium 141, potassium 3, chloride 110, bicarb 27, BUN 6, creatinine 0.69, glucose 123. Stool f or C diff came back positive. Impression: 1.Clostridium difficile colitis, recurrent. 2.Anemia. 3.Hypertension. Plan: We will go ahead and continue current medications. Continue IV Flagyl. We will find out if w e have fidaxomicin available at our pharmacy or not and if it is available or if we can order it, we will go ahead and get him started on it. The dose will be 200 mg 2 times a day. Details were discussed with the patient. Continue IV fluid, but reduce rate to 50 cc/hour. ROBBIN/MODL Voice ID: [id number] Report ID: [id number]
[2020-06-12] MEDS: METRONIDAZOLE 500mg IVPB 500 MG/100 ML BAG IV SCH ×4 (00:29→17:03)
[2020-06-12 04:07] LABS: Absolute Lymphocytes (CBC) 1.2 K/uL (0.7-4.9); Basophils % 0.5 % (0-1.3); Hematocrit 33.7 % (39.6-49.0); Lymphocytes % 17.1 % (15.3-44.8); MPV 7.7 fL (7.6-11.3); RBC Red Blood Cell Count 4.02 M/uL (4.33-5.43)
[2020-06-12 04:11] LABS: BUN Blood Urea Nitrogen 5 mg/dL (7-18); Bicarbonate 26 mmol/L (21-32); Glucose Level 101 mg/dL (74-106); Magnesium 1.9 mg/dL (1.8-2.4); Potassium 3.3 mmol/L (3.5-5.1); Sodium Level 143 mmol/L (136-145)
[2020-06-12] MEDS: D5 0.45 NS 1,000 ML IV SCH (06:05)
[2020-06-12] MEDS ORDERED: POTASSIUM 25 MEQ EFFERV TAB PO ONE ×2 (09:00→21:00)
[2020-06-13] MEDS: METRONIDAZOLE 500mg IVPB 500 MG/100 ML BAG IV SCH ×4 (01:04→17:39)
[2020-06-13] MEDS: D5 0.45 NS 1,000 ML IV SCH ×2 (01:04→20:43)
[2020-06-13 04:39] LABS: BUN Blood Urea Nitrogen 5 mg/dL (7-18); Bicarbonate 29 mmol/L (21-32); Glucose Level 97 mg/dL (74-106); Potassium 3.5 mmol/L (3.5-5.1); Sodium Level 139 mmol/L (136-145)
[2020-06-13] MEDS ORDERED: POTASSIUM 25 MEQ EFFERV TAB PO ONE ×2 (06:00→18:00)
--- NOTE | 2020-06-13 08:18 | PN ---
Date of Progress Note: 06/12/2020 Subjective: The patient was seen this morning for followup. No new complaints or problems reported by him. Diarrhea is somewhat better, but still had about 3 to 4 bowel movement during nighttime and with similar frequency during daytime. No abdominal pain, no nausea, no vomiting. Objective: Vital Signs: Reviewed. HEENT: Unremarkable. Lungs: Clear to auscultation. Heart: Sounds normal. Abdomen: Soft. Bowel sounds normal. No guarding, rigidity, tenderness, or distention. Extremities: No leg edema. Laboratory Data: White count 7.2, hemoglobin 11.6, platelets 248. Sodium 143, potassium 3.3, chlori de 111, bicarb 26, BUN 5, creatinine 0.68, glucose 101, magnesium 1.9. Impression: 1.Clostridium difficile colitis, recurrent. 2.Hypokalemia. 3.Volume depletion. 4.Generalized weakness. Plan: We will go ahead and continue IV Flagyl. Continue IV fluid and current diet. Ambulation was encouraged. ROBBIN/MODL Voice ID: [id number] Report ID: [id number]
[2020-06-13] MEDS: DIFICID 200 MG PO SCH ×2 (15:41→20:38)
[2020-06-14] MEDS: METRONIDAZOLE 500mg IVPB 500 MG/100 ML BAG IV SCH ×3 (00:43→11:00)
[2020-06-14 07:50] LABS: BUN Blood Urea Nitrogen 7 mg/dL (7-18); Bicarbonate 22 mmol/L (21-32); Glucose Level 103 mg/dL (74-106); Sodium Level 140 mmol/L (136-145)
[2020-06-14 07:51] LABS: Potassium 4.2 mmol/L (3.5-5.1)
[2020-06-14 08:20] VITALS: O2SAT 96
[2020-06-14] MEDS: DIFICID 200 MG PO SCH (08:38)
--- NOTE | 2020-06-14 09:28 | PN ---
Date of Progress Note: 06/13/2020 Subjective: The patient was seen for followup in the morning. No new complaints or problems reporte d by him. He still has diarrhea, feels weak because of not able to keep any nutrition down as he say s every time he tries to eat or drink something he ends up having diarrhea. No abdominal pain. No n ausea. No vomiting. Objective: Vital Signs: Reviewed. HEENT: Unremarkable. Lungs: Clear to auscultation. Heart: Sounds normal. Abdomen: Soft. Bowel sounds normal. No guarding, rigidity, tenderness, distention. Extremities: No leg edema. Impression: 1.Clostridium difficile colitis, recurrent. 2.Volume depletion. Plan: We will continue maintenance IV fluid. The patient is on IV Flagyl, we will continue that. Lorna chris to order fidaxomicin 200 mg 2 times a day and I have also sent a prescription to his local pharmacy. Plan is to discharge him to go home once we see some improvement. Details were discussed with the patient. ROBBIN/MODL Voice ID: [id number] Report ID: [id number]
[2020-06-14] MEDS: D5 0.45 NS 1,000 ML IV SCH (15:22)
[2020-06-14 16:32] VITALS: BP 138/75; TEMP 97.9
--- NOTE | 2020-06-30 05:16 | DS ---
Date of Discharge: 06/14/2020 Disposition: Discharged to go home. Physical Examination: HEENT: Unremarkable. Lungs: Clear to auscultation. Heart: Sounds normal. Abdomen: Soft. Bowel sounds normal. No guarding, rigidity, tenderness, or distention. Extremities: No leg edema. Discharge Medications And Instructions: 1.Continue all prior home medication except stop metronidazole. 2.Start Dificid 200 mg, take 1 tablet by mouth 2 times a day for 10 days. 3.Follow up at my office next week on . Laboratory Data: Initial white count 18.1, hemoglobin 12.6, platelets 279, this was on 06/10/2020. His last CBC from 06/12/2020, white count 7.2, hemoglobin 11.6, platelets 248. His last chemistry fr om 06/14/2020, sodium 140, potassium 4.2, chloride 108, bicarb 22, BUN 7, creatinine 0.72, glucose 10 3. His stool for C diff came back positive. Hospital Course: This is an 85-year-old very pleasant male patient, who has prior history of Clostri dium difficile colitis, came in to the emergency room with diarrhea and complaining of feeling weak. He was admitted to the hospital with recurrent Clostridium difficile colitis. After he was admitted to the hospital, he was given IV fluid for volume depletion and IV metronidazole. Considering that he is allergic to vancomycin and he has failed metronidazole therapy, we did talk about using Dificid and he was willing to try that medication, and once we got this medication available in the pharmacy , it was started. Once his condition improved, we were able to discharge him to go home with the pat ient to continue Dificid as prescribed on outpatient basis. I have discussed with him that if this m edication does not help, then he will need to consider fecal transplant and for that, he will have to go to [place] and he will think about that. Final Diagnoses: 1.Clostridium difficile colitis, recurrent. 2.Volume depletion. 3.Anemia. 4.Hypertension. 5.Hyperlipidemia. 6.Gastroesophageal reflux disease. 7.Diverticulosis. 8.Benign prostatic hypertrophy. 9.Lumbar spinal stenosis. 10.Insomnia. ROBBIN/MODL Voice ID: [id number] Report ID: [id number]
== END 2020-06-14 16:45 | disposition home or self-care (01) | DRG 372 ==
LOC: ER 01:23 → ERHOLD 07:43 → 4TH 08:39
PROVIDERS: ADMIT Internal Medicine; ATTEND Internal Medicine
DX: A04.71 Enterocolitis due to Clostridium difficile, recurrent (principal); E44.1 Mild protein-calorie malnutrition; Z68.1 Body mass index [BMI] 19.9 or less, adult; K21.9 Gastro-esophageal reflux disease without esophagitis; I10 Essential (primary) hypertension; E78.5 Hyperlipidemia, unspecified; E86.9 Volume depletion, unspecified; D64.9 Anemia, unspecified; N40.0 Benign prostatic hyperplasia without lower urinary tract symptoms; K57.90 Diverticulosis of intestine, part unspecified, without perforation or abscess without bleeding; G47.00 Insomnia, unspecified; M48.061 Spinal stenosis, lumbar region without neurogenic claudication; E87.6 Hypokalemia; Z88.8 Allergy status to other drugs, medicaments and biological substances; Z79.899 Other long term (current) drug therapy; Z88.1 Allergy status to other antibiotic agents; Z20.822 Contact with and (suspected) exposure to COVID-19
CPT/HCPCS: 36415; 74177; 80048; 80076; 81003; 82947; 83605; 83690; 83735; 84132; 84145; 85025; 87040; 87205; 87324; 87449; 96361; 96365; 96375; 97116; 97161; 99285; J0696; J7030; J7799; Q9967; U0003

== ENCOUNTER 2020-07-12 06:05 | Observation (INO) | payer OTHER, BC ==
[2020-07-12] MEDS ORDERED: NA CHLORIDE 0.9% 1,000 ML ONE ×2 (06:46→10:39)
[2020-07-12 06:54] LABS: Basophils % 0.5 % (0-1.3); Hematocrit 40.3 % (39.6-49.0); Lymphocytes % 9.5 % (15.3-44.8); MPV 8.1 fL (7.6-11.3); RBC Red Blood Cell Count 4.67 M/uL (4.33-5.43)
[2020-07-12 07:02] LABS: Albumin 3.3 g/dL (3.4-5.0); Bilirubin Direct 0.3 mg/dL (0-0.2); Bilirubin Total 0.8 mg/dL (0.2-1.0); Potassium 3.5 mmol/L (3.5-5.1); Protein, Total 7.6 g/dL (6.4-8.2)
--- NOTE | 2020-07-12 07:19 | ER ---
Nurse's Notes [facility] Name: Harsh Crowley Age: 85 yrs Sex: Male : 1935 Arrival Date: 07/12/2020 Time: 06:07 Bed 5 Private MD: Diagnosis: Diarrhea, unspecified Presentation: 07/12 06:22 Chief complaint: Patient states: he had c diff about a year ago and was treated then bb was good for the past year until several weeks ago now he is having diarrhea again. Coronavirus screen: At this time, the client does not indicate any symptoms associated with coronavirus-19. Ebola Screen: No symptoms or risks identified at this time. Initial Sepsis Screen: Does the patient meet any 2 criteria? No. Patient's initial sepsis screen is negative. Does the patient have a suspected source of infection? No. Patient's initial sepsis screen is negative. Risk Assessment: Do you want to hurt yourself or someone else? Patient reports no desire to harm self or others. Onset of symptoms was May 2020. : Method Of Arrival: Ambulatory bb : Acuity: KRISTEN 3 bb Historical: - Allergies: : Prevacid; bb : Vancomycin; bb - Home Meds: : amlodipine oral 5mg NEEDED if Systolic B.P is over 150 [Active]; atorvastatin 10 mg bb Oral tab 1 tab once daily [Active]; B-Complex Oral tab daily [Active]; carvedilol 6.25 mg Oral tab 1 tab 2 times per day [Active]; Claritin 10 mg Oral tab 1 tab once daily [Active]; famotidine 40 mg Oral tab 1 tab nightly [Active]; Immunity guard 1 packet daily [Active]; mirtazapine 7.5 mg Oral tab nightly [Active]; pearls complete 1 PO daily [Active]; - PMHx: : Anxiety; C-diff; GERD; Hypertension; bb - PSHx: : Tonsillectomy; cataracts; Hernia repair; prostate lazer surgery; bb - Immunization history:: Adult Immunizations up to date. - Social history:: Smoking status: Patient denies any tobacco usage or history of. Patient/guardian denies using alcohol, street drugs, The patient lives with family. - Family history:: not pertinent. Screenin:37 Abuse screen: Denies threats or abuse. Nutritional screening: No deficits noted. ea Tuberculosis screening: No symptoms or risk factors identified. Fall Risk IV access (20 points). Assessment: 06:34 General: Appears in no apparent distress. Behavior is calm, cooperative, appropriate ea for age. Pain: Denies pain. Neuro: Level of Consciousness is awake, alert, obeys commands, Oriented to person, place, time, situation. Cardiovascular: Patient's skin is warm and dry. Respiratory: Airway is patent Respiratory effort is even, unlabored, Respiratory pattern is regular, symmetrical. GI: Abdomen is non-distended, Reports diarrhea. Derm: Skin is pink, warm \T\ dry. 07:50 Reassessment: Patient appears in no apparent distress at this time. Patient and/or tw2 family updated on plan of care and expected duration. Pain level reassessed. Patient is alert, oriented x 3, equal unlabored respirations, skin warm/dry/pink. xray at bedside. 08:50 Reassessment: Patient appears in no apparent distress at this time. Patient and/or tw2 family updated on plan of care and expected duration. Pain level reassessed. Patient is alert, oriented x 3, equal unlabored respirations, skin warm/dry/pink. 09:50 Reassessment: Patient appears in no apparent distress at this time. Patient and/or tw2 family updated on plan of care and expected duration. Pain level reassessed. Patient is alert, oriented x 3, equal unlabored respirations, skin warm/dry/pink. Vital Signs: 06:22 BP 156 / 75; Pulse 81; Resp 16 S; Temp 97.5(O); Pulse Ox 96% on R/A; Weight 49.9 kg bb (R); Height 5 ft. 7 in. (170.18 cm) (R); Pain 0/10; 07:51 BP 130 / 63; Pulse 70; Resp 17; Pulse Ox 97% on R/A; tw2 08:50 BP 135 / 86; Pulse 80; Resp 17; Pulse Ox 98% on R/A; tw2 09:50 BP 137 / 66; Pulse 75; Resp 16; Pulse Ox 97% on R/A; tw2 06:22 Body Mass Index 17.23 (49.90 kg, 170.18 cm) ED Course: 06:07 Patient arrived in ED. ag3 06:12 Krunal Ryder MD is Attending Physician. ma2 06:24 Triage completed. bb 06:26 Arm band placed on Patient placed in an exam room, on a stretcher, on pulse oximetry. bb 06:37 Patient has correct armband on for positive identification. Bed in low position. Call ea light in reach. Side rails up X2. 06:45 Inserted saline lock: 20 gauge in right antecubital area, using aseptic technique. ea Blood collected. 06:45 C.difficile Sent. ds4 07:14 Evita Nicholson, RN is Primary Nurse. tw2 07:19 Nasim Lacy MD is Hospitalizing Provider. ma2 09:15 Assisted to bedside commode. tw2 10:16 Head of bed elevated. tw2 10:20 No provider procedures requiring assistance completed. Patient admitted, IV remains in tw2 place. 11:38 Awaiting: unsuccessful attempt to call report. tw2 Administered Medications: 06:44 Drug: NS 0.9% 1000 ml Route: IV; Rate: 1 bolus; Site: left antecubital; ea 07:15 Follow up: Response: No adverse reaction; IV Status: Completed infusion; IV Intake: tw2 1000ml Intake: 07:15 IV: 1000ml; Total: 1000ml. tw2 Outcome: 07:19 Decision to Hospitalize by Provider. ma2 10:20 Admitted to ER Hold. Please see [facility] for further documentation. tw2 10:20 Condition: stable 10:20 Instructed on the need for admit. 12:23 Patient left the ED. tw2 Signatures: Arely Ramey RN RN bb Swanson, Donovan ds4 Evita Nicholson, [address] tw2 Ellie Parisi RN RN ea Alzahri, Mohammad, MD MD ma2 Kristy Alejandre ag3
--- NOTE | 2020-07-12 07:19 | EDPHYS ---
Physician Documentation [facility] Name: Harsh Crowley Age: 85 yrs Sex: Male : 1935 Arrival Date: 07/12/2020 Time: 06:07 Bed 5 Private MD: ED Physician Krunal Ryder HPI: 07/12 06:34 This 85 yrs old Male presents to ER via Ambulatory with complaints of ma2 Diarrhea. 06:34 The patient presents to the emergency department with diarrhea, abdominal pain. Onset: ma2 The symptoms/episode began/occurred gradually, 1 week(s) ago. Associated signs and symptoms: Pertinent positives: diarrhea, Pertinent negatives: anorexia, constipation, dysuria. Severity of symptoms: At their worst the symptoms were moderate in the emergency department the symptoms are unchanged. The patient has not experienced similar symptoms in the past. Historical: - Allergies: : Prevacid; bb 06: Vancomycin; bb - Home Meds: :26 amlodipine oral 5mg NEEDED if Systolic B.P is over 150 [Active]; atorvastatin 10 mg bb Oral tab 1 tab once daily [Active]; B-Complex Oral tab daily [Active]; carvedilol 6.25 mg Oral tab 1 tab 2 times per day [Active]; Claritin 10 mg Oral tab 1 tab once daily [Active]; famotidine 40 mg Oral tab 1 tab nightly [Active]; Immunity guard 1 packet daily [Active]; mirtazapine 7.5 mg Oral tab nightly [Active]; pearls complete 1 PO daily [Active]; - PMHx: :26 Anxiety; C-diff; GERD; Hypertension; bb - PSHx: 06:26 Tonsillectomy; cataracts; Hernia repair; prostate lazer surgery; bb - Immunization history:: Adult Immunizations up to date. - Social history:: Smoking status: Patient denies any tobacco usage or history of. Patient/guardian denies using alcohol, street drugs, The patient lives with family. - Family history:: not pertinent. ROS: 06:34 Constitutional: Negative for fever, chills, and weight loss. ma2 06:34 All other systems are negative. Exam: 06:34 Constitutional: This is a well developed, well nourished patient who is awake, alert, ma2 and in no acute distress. Neck: Trachea midline, no thyromegaly or masses palpated, and no cervical lymphadenopathy. Supple, full range of motion without nuchal rigidity, or vertebral point tenderness. No Meningismus. Chest/axilla: Normal chest wall appearance and motion. Nontender with no deformity. No lesions are appreciated. Cardiovascular: Regular rate and rhythm with a normal S1 and S2. No gallops, murmurs, or rubs. Normal PMI, no JVD. No pulse deficits. Respiratory: Lungs have equal breath sounds bilaterally, clear to auscultation and percussion. No rales, rhonchi or wheezes noted. No increased work of breathing, no retractions or nasal flaring. Abdomen/GI: Soft, non-tender, with normal bowel sounds. No distension or tympany. No guarding or rebound. No evidence of tenderness throughout. MS/ Extremity: Pulses equal, no cyanosis. Neurovascular intact. Full, normal range of motion. Neuro: Awake and alert, GCS 15, oriented to person, place, time, and situation. Cranial nerves II-XII grossly intact. Motor strength 5/5 in all extremities. Sensory grossly intact. Cerebellar exam normal. Normal gait. Vital Signs: 06:22 BP 156 / 75; Pulse 81; Resp 16 S; Temp 97.5(O); Pulse Ox 96% on R/A; Weight 49.9 kg bb (R); Height 5 ft. 7 in. (170.18 cm) (R); Pain 0/10; 07:51 BP 130 / 63; Pulse 70; Resp 17; Pulse Ox 97% on R/A; tw2 08:50 BP 135 / 86; Pulse 80; Resp 17; Pulse Ox 98% on R/A; tw2 09:50 BP 137 / 66; Pulse 75; Resp 16; Pulse Ox 97% on R/A; tw2 06:22 Body Mass Index 17.23 (49.90 kg, 170.18 cm) bb MDM: 06:12 Patient medically screened. ma2 06:34 Differential diagnosis: gastritis, viral gastroenteritis, gastroenteritis. Data ma2 reviewed: vital signs, nurses notes. Counseling: I had a detailed discussion with the patient and/or guardian regarding: the historical points, exam findings, and any diagnostic results supporting the discharge/admit diagnosis, the presence of at least one elevated blood pressure reading (>120/80) during this emergency department visit. 07/12 06:13 Order name: Basic Metabolic Panel; Complete Time: 07:03 ma2 07/12 06:13 Order name: CBC with Diff; Complete Time: 07:01 ma2 07/12 06:13 Order name: Hepatic Function; Complete Time: 07:03 ma2 07/12 06:13 Order name: Lipase; Complete Time: 07:03 ma2 07/12 06:24 Order name: C.difficile ma2 07/12 07:26 Order name: Basic Metabolic Panel EDMS 07/12 07:26 Order name: Basic Metabolic Panel EDMS 07/12 07:26 Order name: CBC with Automated Diff EDMS 07/12 07:26 Order name: CBC with Automated Diff EDMS 07/12 07:26 Order name: Magnesium EDMS 07/12 07:26 Order name: Magnesium EDMS 07/12 07:28 Order name: Vancomycin Level Trough EDMS 07/12 07:28 Order name: Vancomycin Level Trough EDMS 07/12 07:28 Order name: Vancomycin Peak EDMS 07/12 06:13 Order name: IV Saline Lock; Complete Time: 06:44 ma2 07/12 06:13 Order name: Labs collected and sent; Complete Time: 06:45 ma2 07/12 06:24 Order name: Abdomen 1 View (KUB) XRAY ma2 07/12 07:28 Order name: Consistent Carb (ADA) 1800 Geo EDMS 07/12 07:28 Order name: Vancomycin Peak EDMS 07/12 08:27 Order name: RAD EDMS 07/12 09:07 Order name: COVID-19 : Document "Date of Symptom Onset" if Symptomatic. eb 07/12 09:41 Order name: CORONAVIRUS EDMS 07/12 10:23 Order name: SARS-COV-2 RT PCR EDMS Administered Medications: 06:44 Drug: NS 0.9% 1000 ml Route: IV; Rate: 1 bolus; Site: left antecubital; ea 07:15 Follow up: Response: No adverse reaction; IV Status: Completed infusion; IV Intake: tw2 1000ml Disposition: 07/12/20 07:19 Hospitalization ordered by Nasim Lacy for Observation. Preliminary diagnosis is Diarrhea, unspecified. - Bed requested for Telemetry/MedSurg (observation). - Status is Observation. tw2 - Condition is Stable. - Problem is new. - Symptoms are unchanged. Signatures: Dispatcher [employer] EDJosie Dias, RN RN dw Arely Ramey RN Evita Chavez RN RN tw2 Ellie Parisi, Krunal Tran RN, ea, MD MD ma2 Corrections: (The following items were deleted from the chart) 11: 07:19 Hospitalization Ordered by Nasim Lacy MD for Observation. Preliminary diagnosis dw is Diarrhea, unspecified. Bed requested for Telemetry/MedSurg (observation). Status is Observation. Condition is Stable. Problem is new. Symptoms are unchanged. ma2 12:23 11:27 07/12/2020 07:19 Hospitalization Ordered by Nasim Lacy MD for Observation. tw2 Preliminary diagnosis is Diarrhea, unspecified. Bed requested for Telemetry/MedSurg (observation). Status is Observation. Condition is Stable. Problem is new. Symptoms are unchanged. dw
[2020-07-12] MEDS ORDERED: ONDANSETRON 4 MG/2 ML VIAL IV PRN (07:23)
[2020-07-12] MEDS ORDERED: D5 0.45 NS 1,000 ML IV SCH (08:00)
[2020-07-12] MEDS ORDERED: VANCOMYCIN/NS 1 gm 1 GM/250 ML BAG IVPB SCH (08:00)
--- NOTE | 2020-07-12 08:27 | RAD REPORT ---
EXAM DESCRIPTION: RAD - Abdomen 1 View (KUB) - 07/12/2020 8:03 am CLINICAL HISTORY: ABD PAIN Pain COMPARISON: Abdomen Pelvis W Contrast dated 06/10/2020 FINDINGS: The bowel gas pattern is non-obstructive. No evidence of free air or pneumatosis. No suspi cious calcifications. No significant bony findings. IMPRESSION: Negative examination.
[2020-07-12] MEDS ORDERED: CEFTRIAXONE 1 GM/NS 50 ML 1 GM/50 ML BAG IV SCH (09:00)
[2020-07-12] MEDS ORDERED: CEFTRIAXONE/SWI 1gm 1 GM/10 ML SYR IV SCH (09:00)
[2020-07-12] MEDS: NA CHLORIDE 0.9% 1,000 ML IV SCH (10:24)
[2020-07-12 11:26] VITALS: BMI 18.0
[2020-07-12] MEDS ORDERED: INFLUENZA VACCINE (for 3y+) 0.5 ML DOSE IMVAC ONE (13:00)
[2020-07-12 13:01] LABS: C.diff Antigen/Toxin Ag pos : Tox pos (NEG : NEG)
[2020-07-12] MEDS ORDERED: DIPHENHYDRAMINE 25 MG TAB/CAP PO ONE (13:14)
[2020-07-12] MEDS ORDERED: VANCOMYCIN ORAL SOLN 250 MG/5 ML OSYR PO ONE (13:30)
[2020-07-12] MEDS ORDERED: AMLODIPINE 5 MG TAB PO SCH (17:00)
[2020-07-12] MEDS: VANCOMYCIN ORAL SOLN 250 MG/5 ML OSYR PO SCH ×2 (17:30→19:53)
[2020-07-12] MEDS: DIPHENHYDRAMINE 25 MG TAB/CAP PO SCH (19:52)
[2020-07-12] MEDS ORDERED: AMITRIPTYLINE 10 MG TAB PO SCH (21:00)
[2020-07-12] MEDS ORDERED: ATORVASTATIN 10 MG TAB PO SCH (21:00)
[2020-07-12] MEDS ORDERED: HOME MED 1 EA UNK (Famotidine [Famotidine] 40 MG Tablet) PO SCH (21:00)
[2020-07-12] MEDS ORDERED: FAMOTIDINE 20 MG TAB PO SCH (21:00)
[2020-07-12] MEDS ORDERED: VANCOMYCIN ORAL SOLN 250 MG/5 ML OSYR PO SCH (21:00)
[2020-07-12] MEDS: carvediloL 3.125 MG TAB PO SCH (21:26)
--- NOTE | 2020-07-12 21:38 | HP ---
Date of Admission: 07/12/2020 Chief Complaint: Diarrhea and feeling weak. History Of Present Illness: This is an 85-year-old very pleasant male patient with history of recurrent Clostridium difficile colitis problem, came into emergency room with complaints of diarrhea and weakness. The patient had Clostridium difficile colitis few months ago and at that time after taking 1 dose of vancomycin, he started to have rash and itching, and that is why he was labeled as allergic to vancomycin and at that time, he was treated with metronidazole. The patient has received successful treatment for Clostridium difficile colitis with metronidazole 2-3 times. His last hospital admission for same problem was less than a month ago and at that time, we prescribed him different antibiotic, Dificid 100 mg 2 times a day for 10 days, and he responded very well to that and his problem got resolved. His stool for C diff that was done on July 04, 2020, after completion of this antibiotic therapy, and the stool test was negative for C diff on 07/04/2020. As of 2 days ago, he started to have diarrhea, feeling very weak with poor appetite, and he came into emergency room today. Denies any abdominal pain, nausea, or vomiting. No blood in stool. No fever. No chills. After he was evaluated, he was admitted to the hospital. I saw him in emergency room this morning. Allergies: PREVACID CAUSING DIARRHEA AND HE IS ALSO LISTED ALLERGIC TO VANCOMYCIN, WHICH CAUSE RASH AND ITCHING. Review of Systems: GI: As mentioned above. Constitutional: As mentioned above. All other systems reviewed and negative. Medications: List reviewed. Past Medical History: Significant for recurrent Clostridium difficile colitis, hypertension, allergic rhinitis, hyperlipidemia, gastroesophageal reflux disease, liver cyst, diverticulosis, benign prostatic hypertrophy, lumbar spinal stenosis, insomnia. Past Surgical History: Significant for tonsillectomy. Family History: Significant for mother had coronary artery disease, brother with Parkinson disease and hypertension. Social History: Negative for smoking or alcohol. Physical Examination: Vital Signs: Height 5 feet 7 inches, weight 110 pounds. Temperature 97.5, pulse 81, respiratory rate 16, blood pressure 156/75, oxygen saturation 96%. General: Awake, alert, oriented, not in distress. HEENT: Head atraumatic, normocephalic. Conjunctivae nonerythematous. Sclerae white. Mouth, no thrush or edema noted. Ears/Nose, no mass, lesion, discharge noted. Neck: Supple. No JVD, lymph nodes, bruit, thyromegaly noted. Lungs: Bilateral good equal air entry. Clear to auscultation. No rhonchi. No rales. Heart: Normal heart sounds. No murmur or gallop. Abdomen: Soft. Bowel sounds normal. No guarding, rigidity, tenderness, mass, hepatosplenomegaly, distention, or bruit noted. Extremities: No leg edema. No calf tenderness. Skin: No rash, ulcer, cellulitis. Lymphatics: No lymph node enlargement in neck, supraclavicular, infraclavicular region. Neuro: No focal neurological deficit. Chest: Unremarkable. External Genitalia: Deferred. Rectal: Deferred. Laboratory Data: White count 10.5, hemoglobin 13.8, platelets 193. Sodium 143, potassium 3.5, chloride 108, bicarb 30, BUN 18, creatinine 0.92, glucose 100. Liver function tests unremarkable. Lipase 118. Stool for C diff came back positive. Impression: 1. Clostridium difficile colitis, recurrent. 2. Hypertension. 3. Hyperlipidemia. 4. Gastroesophageal reflux disease. 5. Benign prostatic hypertrophy. 6. Diverticulosis. 7. Lumbar spinal stenosis. 8. Insomnia. Plan: Admit the patient to hospital for further evaluation and management of this problem. We will go ahead and give him IV fluid per order. I have talked to the patient today and in the past regarding treatment for recurrent Clostridium difficile colitis. We have 3 different options at this point. Option #1 is to consider repeat treatment with Dificid for another 10 days, but I am not sure and I did not believe that it would be the best option for him. Two other options will be sending him to [facility] on an elective outpatient basis for fecal transplant and he has declined that option. Last option is to try a vancomycin with some Benadryl and see if he is able to tolerate that or not, and the patient is willing to try this last option, which is vancomycin with Benadryl and 1 dose of 250 mg of vancomycin by mouth was ordered with 25 mg of Benadryl p.o. and he has tolerated that very well. First dose was given and today afternoon and since he has tolerated that very well, we will continue vancomycin 250 mg 3 times a day along with 25 mg of Benadryl with each dose of vancomycin. I will see him tomorrow for followup. Plan is now to go ahead and use vancomycin and taper it over longer period of time and this longer period of the time will be probably few to several months depending on his response. I will see him tomorrow for followup. ROBBIN/LOUISA Voice ID: [id number] MTDD
[2020-07-13] MEDS: NA CHLORIDE 0.9% 1,000 ML IV SCH ×2 (00:46→11:40)
[2020-07-13 05:46] LABS: BUN Blood Urea Nitrogen 11 mg/dL (7-18); Bicarbonate 26 mmol/L (21-32); Glucose Level 98 mg/dL (74-106); Magnesium 1.9 mg/dL (1.8-2.4); Potassium 3.4 mmol/L (3.5-5.1); Sodium Level 143 mmol/L (136-145)
[2020-07-13 07:09] LABS: Absolute Lymphocytes (CBC) 1.2 K/uL (0.7-4.9); Basophils % 0.5 % (0-1.3); Lymphocytes % 16.7 % (15.3-44.8); MPV 8.4 fL (7.6-11.3); RBC Red Blood Cell Count 4.04 M/uL (4.33-5.43)
[2020-07-13] MEDS: carvediloL 3.125 MG TAB PO SCH (08:16)
[2020-07-13] MEDS: VANCOMYCIN ORAL SOLN 250 MG/5 ML OSYR PO SCH ×2 (08:17→13:30)
[2020-07-13] MEDS: DIPHENHYDRAMINE 25 MG TAB/CAP PO SCH ×2 (08:17→13:30)
[2020-07-13] MEDS ORDERED: VITAMIN B COMPLEX 1 CAP PO SCH (09:00)
[2020-07-13] MEDS ORDERED: HOME MED 1 EA UNK (Vitamin B Complex [B Complex] Tablet) PO SCH (09:00)
[2020-07-13 09:48] LABS: Blood Morphology Comment NOT SEEN (NOT SEEN); Platelet Estimate ADEQ; White Blood Cell Scan OK (OK)
[2020-07-13 10:04] VITALS: O2SAT 98
[2020-07-13] MEDS ORDERED: POTASSIUM CL SA 10 MEQ TAB PO ONE (11:42)
[2020-07-13 14:10] VITALS: BP 130/61; TEMP 98.5
--- NOTE | 2020-07-13 20:36 | DS ---
Date of Discharge: 07/13/2020 Disposition: Discharged to go home. Physical Examination: HEENT: Unremarkable. Lungs: Clear to auscultation. Heart: Sounds normal. Abdomen: Soft. Bowel sounds normal. No guarding, rigidity, tenderness, or distention. Extremities: No leg edema. Discharge Medications And Instructions: 1. Continue all prior home medications. 2. Take following medications as prescribed and prescription will be sent to [facility] from our office. New medications are vancomycin 250 mg take 1 capsule by mouth 3 times a day for 2 weeks then 1 capsule by mouth 2 times a day for 2 weeks then 1 capsule by mouth daily for 2 weeks then 1 capsule by mouth every other day for 2 weeks then 1 capsule by mouth 2 times a week which is every Wednesday and every for 2 weeks and 1 capsule by mouth once a week for 2 weeks, then stop, and the patient to take [id number] Benadryl 25 mg 1 tablet with each dose of vancomycin. 3. Follow up at my office on 07/18/2020 and call office. Laboratory Data: Upon admission, sodium 143, potassium 3.5, chloride 108, bicarb 30, BUN 18, creatinine 0.92, glucose 100. Liver function tests unremarkable. Today's potassium 3.4, sodium 143, chloride 112, bicarb 26, BUN 11, creatinine 0.72, hemoglobin 13.8, platelets 196. Today, white count 7.1, hemoglobin 11.8. COVID-19 test negative. Stool for Clostridium difficile came back positive. Final Diagnoses: 1. Clostridium difficile colitis, recurrent. 2. Anemia, unspecified. 3. Hypokalemia. 4. Hypertension. 5. Hyperlipidemia. 6. Gastroesophageal reflux disease. 7. Benign prostatic hypertrophy. 8. Diverticulosis. 9. Lumbar spinal stenosis. 10. Insomnia. Hospital Stay: This is an 85-year-old very pleasant male patient, admitted to the hospital with recurrent Clostridium difficile colitis. Please see dictated H and P for more information. After the patient was evaluated and admitted to the hospital, he was started on vancomycin. The patient received a total of 3 doses of vancomycin so far, 2 doses yesterday, and 1 dose this morning, and each time he received vancomycin 25 mg of Benadryl p.o. was given to him and he has tolerated vancomycin very well. He has not had any side effect of any rash, itching, or any other side effect from vancomycin. The patient's diarrhea has improved. Yesterday, he had 14 bowel movements and today so far by the time I saw him it was around 11:30 and he had only 2 bowel movements so far today. Overall, he feels better and the plan is to discharge him to go home now with vancomycin as prescribed above and instruction was given to him and his spouse that he should take 1 Benadryl tablet with every dose of vancomycin. We will see him at office for followup. ROBBIN/LOUISA Voice ID: [id number] Report ID: [id number] MTDD
== END 2020-07-13 14:18 | disposition home or self-care (01) ==
LOC: ER 06:05 → ERHOLD 07:40 → 2ND 11:46
PROVIDERS: ADMIT Internal Medicine; ATTEND Internal Medicine
DX: A04.71 Enterocolitis due to Clostridium difficile, recurrent (principal); D64.9 Anemia, unspecified; E87.6 Hypokalemia; I10 Essential (primary) hypertension; E78.5 Hyperlipidemia, unspecified; K21.9 Gastro-esophageal reflux disease without esophagitis; K57.90 Diverticulosis of intestine, part unspecified, without perforation or abscess without bleeding; N40.0 Benign prostatic hyperplasia without lower urinary tract symptoms; M48.061 Spinal stenosis, lumbar region without neurogenic claudication; G47.00 Insomnia, unspecified; J30.9 Allergic rhinitis, unspecified; K76.89 Other specified diseases of liver; Z20.822 Contact with and (suspected) exposure to COVID-19; Z88.8 Allergy status to other drugs, medicaments and biological substances; Z82.49 Family history of ischemic heart disease and other diseases of the circulatory system; Z82.0 Family history of epilepsy and other diseases of the nervous system
CPT/HCPCS: 85025 ×2; 80048 ×2; 36415; 83735; 82947 ×4; 80076; 80202; 87324; 83690; 87449; 74018; 96360; 99285; U0003; J7030 ×2; G0378; J3370

== ENCOUNTER 2021-01-12 09:15 | Inpatient (IN) | payer OTHER, BC ==
[2021-01-12] MEDS ORDERED: NA CHLORIDE 0.9% 500 ML ONE (10:08)
[2021-01-12 10:21] LABS: Absolute Lymphocytes (CBC) 1.6 K/uL (0.7-4.9); Basophils % 0.3 % (0-1.3); Hematocrit 38.3 % (39.6-49.0); Lymphocytes % 9.7 % (15.3-44.8); MPV 7.7 fL (7.6-11.3); RBC Red Blood Cell Count 4.43 M/uL (4.33-5.43)
[2021-01-12 10:33] LABS: Albumin 2.9 g/dL (3.4-5.0); Bilirubin Direct 0.3 mg/dL (0-0.2); Bilirubin Total 1.1 mg/dL (0.2-1.0); Potassium 3.5 mmol/L (3.5-5.1); Protein, Total 6.4 g/dL (6.4-8.2)
[2021-01-12 10:45] LABS: SARS-COV-2 RT PCR NEGATIVE (NEGATIVE)
--- NOTE | 2021-01-12 10:53 | EDPHYS ---
Physician Documentation [facility] Name: Harsh Crowley Age: 85 yrs Sex: Male : 1935 Arrival Date: 01/12/2021 Time: 09:17 Bed 14 Private MD: ED Physician Krunal Ryder HPI: 01/12 09:45 This 85 yrs old Male presents to ER via Wheelchair with complaints of Fever, pm1 Diarrhea. 09:45 Onset: The symptoms/episode began/occurred 1 week(s) ago. Associated signs and pm1 symptoms: Pertinent positives: fever, Pertinent negatives: nausea and vomiting, chest pain, shortness of breath, abdominal pain. Modifying factors: The symptoms are alleviated by nothing, the symptoms are aggravated by emotional upset, Life stressors. The patient has experienced similar episodes in the past, a few times. Patient contacted PCP and had a stool sample tested for C.difficile on . Pending results. Historical: - Allergies: 09:31 Prevacid; ss 09:31 Vancomycin; Has taken Vanc before with Benadryl and did "OK"; ss - Home Meds: 09:42 atorvastatin 10 mg Oral tab 1 tab once daily [Active]; B-Complex Oral tab daily ss [Active]; carvedilol 6.25 mg Oral tab 1 tab 2 times per day [Active]; Claritin 10 mg Oral tab 1 tab once daily [Active]; famotidine 40 mg Oral tab 1 tab nightly [Active]; mirtazapine 7.5 mg Oral tab nightly [Active]; pearls complete 1 PO daily [Active]; Immunity guard 1 packet daily [Active]; amlodipine oral 5mg NEEDED if Systolic B.P is over 150 [Active]; - PMHx: 09:31 Anxiety; C-diff; GERD; Hypertension; ss - Immunization history:: Adult Immunizations up to date, Client reports receiving the 2nd dose of the Covid vaccine. - Social history:: Smoking status: Patient denies any tobacco usage or history of. ROS: 09:45 Cardiovascular: Negative for chest pain, palpitations, and edema, Respiratory: Negative pm1 for shortness of breath, cough, wheezing, and pleuritic chest pain. 09:45 MS/Extremity: Negative for injury and deformity, Skin: Negative for injury, rash, and discoloration, Neuro: Negative for headache, weakness, numbness, tingling, and seizure. 09:45 Constitutional: Positive for fever. 09:45 Abdomen/GI: Positive for diarrhea, Negative for abdominal pain, nausea and vomiting. 09:45 All other systems are negative. Exam: 09:45 Constitutional: This is a well developed, well nourished patient who is awake, alert, pm1 and in no acute distress. Head/Face: Normocephalic, atraumatic. 09:45 Skin: Warm, dry with normal turgor. Normal color with no rashes, no lesions, and no evidence of cellulitis. MS/ Extremity: Pulses equal, no cyanosis. Neurovascular intact. Full, normal range of motion. 09:45 Eyes: Exam is negative for acute changes, Extraocular movements: intact throughout, Conjunctiva: no acute changes, no injection. 09:45 ENT: Exam is negative for Mouth: Lips: normal, moist, Oral mucosa: normal, pink and intact, moist. 09:45 Cardiovascular: Rate: normal, Rhythm: regular, Pulses: no pulse deficits are appreciated, Edema: is not appreciated. 09:45 Respiratory: Exam negative for acute changes, respiratory distress, shortness of breath. 09:45 Abdomen/GI: Inspection: abdomen appears normal, Palpation: abdomen is soft and non-tender, in all quadrants. 09:45 Neuro: Exam negative for acute changes, Orientation: is normal, Mentation: is normal, Motor: is normal, moves all fours. Vital Signs: 09:29 BP 118 / 53; Pulse 87; Resp 17; Temp 97.7(TE); Pulse Ox 97% on R/A; Weight 52.16 kg; ss Height 5 ft. 7 in. (170.18 cm); Pain 0/10; 12:14 BP 107 / 91; Pulse 77; Resp 18; Temp 97.7; Pulse Ox 99% ; aj2 09:29 Body Mass Index 18.01 (52.16 kg, 170.18 cm) ss MDM: 09:30 Patient medically screened. pm1 10:12 Data reviewed: vital signs. Data interpreted: Pulse oximetry: on room air is 97 %. pm1 Interpretation: normal. 10:48 Physician consultation: A Regino THOMPSON regarding admission, would like medications started, pm1 CT abdomen/pelvis, Vancomycin 250 mg IV Q6hr, D5 1/2NS \\T\\75mL/hr, Benadryl 25 mg IV with prior to each infusion with vancomycin, in the emergency department to see patient at 10:40. 01/12 09:41 Order name: Basic Metabolic Panel; Complete Time: 10:34 pm1 01/12 09:41 Order name: CBC with Diff; Complete Time: 10:32 pm1 01/12 09:41 Order name: Hepatic Function; Complete Time: 10:34 pm1 01/12 09:41 Order name: Lipase; Complete Time: 10:34 pm1 01/12 09:41 Order name: IV Saline Lock; Complete Time: 10:08 pm1 01/12 10:45 Order name: COVID-19/FLU A+B; Complete Time: 10:46 EDMS 01/12 10:45 Order name: CT Abd/Pelvis - IV Contrast Only; Complete Time: 11:54 pm1 01/12 17:06 Order name: Vancomycin Peak; Complete Time: 17:47 EDMS 01/12 09:41 Order name: Labs collected and sent; Complete Time: 10:09 pm1 Administered Medications: 10:08 Drug: NS 0.9% 500 ml Route: IV; Rate: bolus; Site: right antecubital; aj2 11:59 Drug: Benadryl (diphenhydrAMINE) 25 mg Route: IVP; Site: right antecubital; aj2 11:59 Drug: D5-1/2 NS 1000 ml Route: IV; Rate: 75 ml/hr; Site: right antecubital; aj2 13:00 Drug: vancoMYCIN 250 mg Route: IVPB; Infused Over: 2 hrs; Site: right antecubital; aj2 Disposition Summary: 01/12/21 10:52 Hospitalization Ordered Hospitalization Status: Inpatient Admission pm1 Provider: Dinorah Lacy pm1 Condition: Stable pm1 Problem: new pm1 Symptoms: have improved pm1 Bed/Room Type: Standard pm1 Location: Telemetry/MedSur (Inpatient)(01/12/21 18:43) sv Room Assignment: 429(01/12/21 18:43) sv Diagnosis - Enterocolitis due to Clostridium difficile, recurrent pm1 Forms: - Medication Reconciliation Form pm1 - SBAR form pm1 Addendum: 01/17/2021 04:29 Co-signature as Attending Physician, Krunal Ryder MD PA/HULL OUTFIT SUPERVISOR's history reviewed, m a2 patient interviewed, and examined. I agree with assessment and care plan and confirm the diagnosis (es) above. Signatures: Dispatcher [employer] EDMS Rimma Cárdenas, RN RN sv Senia Martines RN RN ss Sidney Limon, HULL OUTFIT SUPERVISOR HULL OUTFIT SUPERVISOR pm1 Krunal Ryder MD MD fl2 Courtney Patel2 Corrections: (The following items were deleted from the chart) 01/12 10:03 09:42 CORONAVIRUS+MR.LAB.BRZ ordered. EDMS EDMS 10:03 09:42 Influenza Screen (A \\T\\ B)+BA.LAB.BRZ ordered. EDNY EDMS 14:16 10:52 Telemetry/MedSurg (Inpatient) pm1 sv 14:16 10:52 pm1 sv 18:43 14:16 BR ER HOLD sv sv 18:43 14:16 ERHOLD- sv sv
--- NOTE | 2021-01-12 10:53 | ER ---
Nurse's Notes [facility] Name: Harsh Crowley Age: 85 yrs Sex: Male : 1935 Arrival Date: 01/12/2021 Time: 09:17 Bed 14 Private MD: Diagnosis: Enterocolitis due to Clostridium difficile, recurrent Presentation: 01/12 09:29 Chief complaint: Patient states: Diarrhea x 1 week. Pt reports HX of Cdiff and believes ss this may be the case again. Negative COVID test on . Denies pain. Coronavirus screen: Client denies travel out of the [place] in the last 14 days. The client reports previous COVID testing was negative. Ebola Screen: Patient denies exposure to infectious person. Patient denies travel to an Ebola-affected area in the 21 days before illness onset. Initial Sepsis Screen: Does the patient meet any 2 criteria? No. Patient's initial sepsis screen is negative. Does the patient have a suspected source of infection? No. Patient's initial sepsis screen is negative. Risk Assessment: Do you want to hurt yourself or someone else? Patient reports no desire to harm self or others. Onset of symptoms was January 05, 2021. 09:29 Method Of Arrival: Wheelchair ss 09:29 Acuity: KRISTEN 3 ss Historical: - Allergies: 09:31 Prevacid; ss 09:31 Vancomycin; Has taken Vanc before with Benadryl and did "OK"; ss - Home Meds: 09:42 atorvastatin 10 mg Oral tab 1 tab once daily [Active]; B-Complex Oral tab daily ss [Active]; carvedilol 6.25 mg Oral tab 1 tab 2 times per day [Active]; Claritin 10 mg Oral tab 1 tab once daily [Active]; famotidine 40 mg Oral tab 1 tab nightly [Active]; mirtazapine 7.5 mg Oral tab nightly [Active]; pearls complete 1 PO daily [Active]; Immunity guard 1 packet daily [Active]; amlodipine oral 5mg NEEDED if Systolic B.P is over 150 [Active]; - PMHx: 09:31 Anxiety; C-diff; GERD; Hypertension; ss - Immunization history:: Adult Immunizations up to date, Client reports receiving the 2nd dose of the Covid vaccine. - Social history:: Smoking status: Patient denies any tobacco usage or history of. Screenin:31 Fall Risk None identified. aj2 09:33 Abuse screen: Denies threats or abuse. Denies injuries from another. Nutritional ss screening: No deficits noted. Tuberculosis screening: Never had TB. Assessment: 09:31 Pain: Denies pain. GI: No deficits noted. Abdomen is flat. aj2 11:35 Reassessment: Patient appears in no apparent distress at this time. Patient and/or aj2 family updated on plan of care and expected duration. Pain level reassessed. Patient is alert, oriented x 3, equal unlabored respirations, skin warm/dry/pink. 12:14 Reassessment: Patient appears in no apparent distress at this time. Patient and/or aj2 family updated on plan of care and expected duration. Pain level reassessed. Patient is alert, oriented x 3, equal unlabored respirations, skin warm/dry/pink. Patient states symptoms have not improved. 14:05 Reassessment: Patient appears in no apparent distress at this time. Patient and/or aj2 family updated on plan of care and expected duration. Pain level reassessed. Patient is alert, oriented x 3, equal unlabored respirations, skin warm/dry/pink. Patient denies pain at this time. Vital Signs: 09:29 BP 118 / 53; Pulse 87; Resp 17; Temp 97.7(TE); Pulse Ox 97% on R/A; Weight 52.16 kg; ss Height 5 ft. 7 in. (170.18 cm); Pain 0/10; 12:14 BP 107 / 91; Pulse 77; Resp 18; Temp 97.7; Pulse Ox 99% ; aj2 09:29 Body Mass Index 18.01 (52.16 kg, 170.18 cm) ED Course: 09:17 Patient arrived in ED. mr 09:24 Sidney Limon, TRICIA is PHCP. pm1 09:24 River Barnett MD is Attending Physician. pm1 09:31 Krunal Ryder MD is Attending Physician. pm1 09:31 Triage completed. ss 09:31 Courtney Patel is Primary Nurse. aj2 09:31 No apparent distress. Resting quietly. aj2 09:31 Arm band placed on right wrist. ss 09:31 Patient has correct armband on for positive identification. aj2 09:31 No provider procedures requiring assistance completed. Patient did not have IV access aj2 during this emergency room visit. 10:09 Basic Metabolic Panel Sent. aj2 10:09 CBC with Diff Sent. aj2 10:09 Hepatic Function Sent. aj2 10:09 Lipase Sent. aj2 10:52 Dinorah Lacy MD is Hospitalizing Provider. pm1 11:17 CT Abd/Pelvis - IV Contrast Only In Process Unspecified. EDMS 11:35 No apparent distress. Resting quietly. aj2 11:35 No apparent distress. Resting quietly. aj2 11:35 Inserted saline lock: 20 gauge in right antecubital area, using aseptic technique. aj2 12:14 No apparent distress. Resting quietly. aj2 12:14 IV is patent, is intact, Flushed right antecubital. aj2 14:05 No apparent distress. Resting quietly. aj2 Administered Medications: 10:08 Drug: NS 0.9% 500 ml Route: IV; Rate: bolus; Site: right antecubital; aj2 11:59 Drug: Benadryl (diphenhydrAMINE) 25 mg Route: IVP; Site: right antecubital; aj2 11:59 Drug: D5-1/2 NS 1000 ml Route: IV; Rate: 75 ml/hr; Site: right antecubital; aj2 13:00 Drug: vancoMYCIN 250 mg Route: IVPB; Infused Over: 2 hrs; Site: right antecubital; aj2 Outcome: 10:52 Decision to Hospitalize by Provider. pm1 21:42 Patient left the ED. cw2 Signatures: Dispatcher [employer] EDRI Martha Moreno [place] RN RN Sidney Monte, TRICIA HOOP RIVETER pm1 Courtney Patel aj2 Blane Friedman RN RN cw2 Corrections: (The following items were deleted from the chart) 10:03 09:51 Influenza Screen (A \\T\\ B)+BA.LAB.BRZ drawn and sent. aj2 EDMS 10:03 09:51 CORONAVIRUS+MR.LAB.BRZ drawn and sent. aj2 EDMS
--- NOTE | 2021-01-12 11:31 | RAD REPORT ---
EXAM DESCRIPTION: CT - Abdomen Pelvis W Contrast - 01/12/2021 11:18 am CLINICAL HISTORY: Diarrhea, C.Difficile COMPARISON: Abdomen Pelvis W Contrast dated 06/10/2020 TECHNIQUE: Biphasic, helical CT imaging of the abdomen and pelvis was performed following 100 ml non -ionic IV contrast. No oral contrast administered. All CT scans are performed using dose optimization technique as appropriate and may include automated exposure control or mA/KV adjustment according to patient size. FINDINGS: Stable fibrotic stranding seen in each lung base with no acute finding. There is no perica rdial effusion. The patient has a severe pectus excavatum chronic deformity. This results in a distor dee contour to the right-side of the heart and right ventricle. No change from prior imaging. Liver shows no acute or suspicious finding. Several small cysts are stable from comparison. No acute pancreatic process. Small cysts in the pancreas are also unchanged from comparison. No acute splenic finding. Gallbladder and biliary tree are also without suspicious finding. Gallstones can be occult o n CT imaging. Symmetric renal function is seen with no hydronephrosis or suspicious renal mass. No pyelonephritis o r acute parenchymal process. No bladder abnormalities. No adrenal abnormalities. No gastric dilatation or gastric wall thickening. No acute small bowel finding. No suspicion for appe ndicitis. Patient has mild for age diverticulosis without focal diverticulitis findings. Mild wall th ickening and edema seen throughout the colon. Trace amount of stranding seen in the adjacent fat. No focal colon mass identified. No free air, free fluid or pneumatosis. No hernia, mass or bulky lymphadenopathy. No suspicious bony findings. Disc and bone degenerative changes are present. No acute vascular finding seen. IMPRESSION: Mild pancolitis pattern with no surgically emergent finding.
[2021-01-12] MEDS ORDERED: DIPHENHYDRAMINE 50 MG/ML VIAL ONE (12:21)
[2021-01-12] MEDS ORDERED: D5 0.45 NS 1,000 ML IV ONE (12:22)
[2021-01-12] MEDS ORDERED: VANCOMYCIN IV ONE (13:00)
[2021-01-12] MEDS ORDERED: NA CHLORIDE 0.9% IV ONE (13:00)
[2021-01-12] MEDS ORDERED: DIPHENHYDRAMINE 50 MG/ML VIAL IV PRN (14:14)
[2021-01-12] MEDS: VANCOMYCIN 250 MG in NA CHLORIDE 0.9% 100 ML IV SCH (21:24)
[2021-01-12] MEDS ORDERED: VANCOMYCIN 500 MG/VIAL ONE (21:46)
[2021-01-12] MEDS: D5 0.45 NS 1,000 ML IV SCH (22:36)
[2021-01-13] MEDS: VANCOMYCIN 250 MG in NA CHLORIDE 0.9% 100 ML IV SCH (02:12)
[2021-01-13] MEDS ORDERED: VANCOMYCIN 500 MG/VIAL ONE (02:34)
[2021-01-13] MEDS: D5 0.45 NS 1,000 ML IV SCH ×2 (03:34→15:53)
[2021-01-13 04:23] LABS: Absolute Lymphocytes (CBC) 1.9 K/uL (0.7-4.9); Basophils % 0.3 % (0-1.3); Hematocrit 34.8 % (39.6-49.0); Lymphocytes % 19.1 % (15.3-44.8); MPV 7.9 fL (7.6-11.3); RBC Red Blood Cell Count 4.01 M/uL (4.33-5.43)
[2021-01-13] MEDS ORDERED: AMLODIPINE 5 MG TAB PO PRN (04:43)
[2021-01-13] MEDS ORDERED: ALPRAZOLAM 0.25 MG TABLET PO PRN (04:43)
[2021-01-13 04:44] LABS: ALT/SGPT 29 U/L (12-78); AST/SGOT 25 U/L (15-37); Albumin 2.5 g/dL (3.4-5.0); Alkaline Phosphatase 130 U/L (45-117); BUN Blood Urea Nitrogen 12 mg/dL (7-18); Bicarbonate 25 mmol/L (21-32); Bilirubin Direct 0.3 mg/dL (0-0.2); Bilirubin Total 0.8 mg/dL (0.2-1.0); Glucose Level 99 mg/dL (74-106); Lipase 48 U/L (73-393); Protein, Total 5.4 g/dL (6.4-8.2); Sodium Level 142 mmol/L (136-145)
[2021-01-13 04:46] LABS: Potassium 2.9 mmol/L (3.5-5.1)
[2021-01-13] MEDS ORDERED: KCL 20 MEQ/100 mL IVPB 20 MEQ/100 ML BAG IV SCH (06:00)
--- NOTE | 2021-01-13 07:05 | HP ---
Date of Admission: 01/12/2021 Chief Complaint: Diarrhea. History Of Present Illness: This is an 85-year-old male patient, who has history of recurrent Clostr idium difficile colitis. Last episode of this problem was in June of this year. He was successfull y treated with oral vancomycin with tapering dose over period of several weeks. This week, he contac dee my office that his diarrhea has come back and he is concerned about recurrence of Clostridium dif ficile infection. So, stool test was ordered and his stool test result has been pending as I have ch ecked it on a daily basis until today after patient presented to emergency room with this worsening d iarrhea problem. After his presentation to the ER at a later time, his stool test results came and i t was positive. Patient is having generalized weakness with this diarrhea problem. His appetite has gone down with the diarrhea also. As of last couple of days, he started to have fever. No bleeding . No nausea. No vomiting. No abdominal pain. Allergies: PREVACID IN THE PAST. HE HAD RASH TYPE OF SIDE EFFECT FROM VANCOMYCIN WHEN HE FIRST RECE IVED ONLY 1 DOSE OF VANCOMYCIN, BUT SUBSEQUENTLY WE HAVE GIVEN HIM VANCOMYCIN WITHOUT ANY SIDE EFFECT AND HE HAS TAKEN BENADRYL WITH THAT WITHOUT ANY SIDE EFFECTS. Review of Systems: Constitutional: As mentioned above. GI: As mentioned above. Psychiatry: Has some depression problem. All other systems reviewed and negative. Medications: Alprazolam 0.25 mg at bedtime as needed. Amitriptyline 10 mg at bedtime. Atorvastatin 10 mg at bedtime. Amlodipine 5 mg daily as needed for systolic blood pressure more than 150. Carve dilol 3.125 mg 2 times a day. Famotidine 40 mg daily at bedtime. Past Medical History: Significant for allergic rhinitis, hypertension, hyperlipidemia, gastroesophag eal reflux disease, liver cyst, diverticulosis, recurrent Clostridium difficile colitis, benign prost atic hypertrophy, lumbar spinal stenosis, insomnia, and depression problem recently. Past Surgical History: Tonsillectomy. Family History: Significant for mother had coronary artery disease; brother, Parkinson disease and h ypertension. Social History: Negative for smoking and alcohol use. Immunization History: Patient had his first dose of COVID-19 vaccine on May 02, 2020, and second dose on May 30, 2020. Physical Examination: Vital Signs: Initial vital signs temperature 97.7, pulse 87, respiratory rate 17, blood pressure 118 /53, oxygen saturation 97%. General: Awake, alert, oriented, not in distress. HEENT: Head atraumatic, normocephalic. Conjunctivae nonerythematous. Sclerae white. Mouth, no thr ush or edema noted. Ears/Nose, no mass, lesion, discharge noted. Neck: Supple. No JVD, lymph nodes, bruit, thyromegaly noted. Chest: Shows pectus excavatum, chronic finding. Lungs: Bilateral good equal air entry. Clear to auscultation. No rhonchi. No rales. Heart: Normal heart sounds, no murmur or gallop. Abdomen: Soft, bowel sounds normal. No guarding, rigidity, tenderness, mass, hepatosplenomegaly, dis tention, or bruit noted. Extremities: No leg edema. No calf tenderness. Skin: No rash, ulcer, cellulitis. Lymphatics: No lymph node enlargement in neck, supraclavicular, infraclavicular region. Neuro: No focal neurological deficit. Chest: Unremarkable. External Genitalia: Deferred. Rectal: Deferred. Laboratory Data: White count 16.6, hemoglobin 13.2, platelets 206. Sodium 143, potassium 3.5, chlor abhishek 111, bicarb 26, BUN 17, creatinine 1.02, glucose 123. Total bilirubin 1.1, AST 28, ALT 32, alkal ine phosphatase 156. Lipase 46. Influenza A and B and COVID-19 test negative. CAT scan of the abdo men shows byrd colitis without any acute emergent surgical findings. Stool for C difficile came back positive. Impression: 1.Clostridium difficile colitis, recurrent. 2.Hypokalemia. 3.Hypertension. 4.Hyperlipidemia. 5.Allergic rhinitis. 6.Depression. 7.Insomnia. 8.Diverticulosis. 9.Benign prostatic hypertrophy. 10.Gastroesophageal reflux disease. 11.Lumbar spinal stenosis. Plan: We will admit patient to hospital for further evaluation and management of this problem. Sherie ent is appropriate for inpatient and is expected to spend 2 midnights in hospital. We will continue home medications per order, give IV fluid, monitor electrolytes, and if necessary, we will replace el ectrolytes per protocol. Start the patient on vancomycin per order. Today, we will give him IV vanc omycin. Starting tomorrow, we will change it to oral vancomycin. Leave him on clear liquid diet and ambulation was encouraged. We will order SCD for DVT prophylaxis. Details and plan of treatment di scussed with the patient and his . He is on amitriptyline 10 mg at bedtime and still showing sig ns of depression. As per my discussion with him today, we will consider to increase the dose to 25 m g at bedtime. ROBBIN/MODNiles Voice ID: [id number]
[2021-01-13 08:21] VITALS: BMI 18.0
[2021-01-13] MEDS: carvediloL 3.125 MG TAB PO SCH ×2 (08:40→20:18)
[2021-01-13] MEDS: VANCOMYCIN ORAL SOLN 250 MG/5 ML OSYR PO SCH ×2 (08:40→17:49)
[2021-01-13] MEDS: FAMOTIDINE 20 MG TAB PO SCH ×2 (08:40→20:17)
[2021-01-13] MEDS: ENSURE ENLIVE 237 ML CAN PO SCH (21:00)
[2021-01-13] MEDS ORDERED: AMITRIPTYLINE 25 MG TAB PO SCH (21:00)
[2021-01-13] MEDS ORDERED: ATORVASTATIN 10 MG TAB PO SCH (21:00)
[2021-01-13] MEDS ORDERED: AMITRIPTYLINE 10 MG TAB PO SCH (21:00)
[2021-01-14] MEDS: VANCOMYCIN ORAL SOLN 250 MG/5 ML OSYR PO SCH ×2 (00:50→08:39)
--- NOTE | 2021-01-14 06:40 | PN ---
Date of Progress Note: 01/13/2021 Subjective: The patient was seen this morning for followup. No new complaints or problems reported. He had 2-3 episodes of diarrhea overnight. He has had no abdominal pain, nausea, or vomiting. Objective: Vital Signs: Reviewed. HEENT: Unremarkable. Lungs: Clear to auscultation. Heart: Sounds normal. Abdomen: Soft. Bowel sounds normal. No guarding, rigidity, tenderness, distention. Extremities: No leg edema. Laboratory Data: White count 10.1, hemoglobin 12, platelets 182. Sodium 142, potassium 2.9, chlorid e 110, bicarb 25, BUN 12, creatinine 0.70, glucose 99, alkaline phosphatase 130. Lipase 48. Impression: 1.Clostridium difficile colitis, recurrent. 2.Anemia, unspecified. 3.Hypokalemia. 4.Hypertension. 5.Depression. 6.Insomnia. Plan: We will go ahead and change the vancomycin from IV to oral vancomycin 250 mg 3 times a day. W e will continue home medications. We will order increase dose of amitriptyline from 10 mg at bedtime to 25 mg at bedtime. Replace electrolytes per protocol for hypokalemia problem. We will check magn esium and if it comes back low, then we will follow electrolyte replacement protocol on that as well. I will see him tomorrow for followup. Depending on his condition, we will decide if we can discharge him to [facility] or not. ROBBIN/MODL Voice ID: [id number] Report ID: [id number]
[2021-01-14 06:50] LABS: BUN Blood Urea Nitrogen 9 mg/dL (7-18); Bicarbonate 28 mmol/L (21-32); Glucose Level 97 mg/dL (74-106); Magnesium 1.9 mg/dL (1.8-2.4); Potassium 3.1 mmol/L (3.5-5.1); Sodium Level 143 mmol/L (136-145)
[2021-01-14] MEDS ORDERED: POTASSIUM CL SA 10 MEQ TAB PO ONE (06:58)
[2021-01-14] MEDS: carvediloL 3.125 MG TAB PO SCH (08:39)
[2021-01-14] MEDS: FAMOTIDINE 20 MG TAB PO SCH (08:39)
[2021-01-14] MEDS: ENSURE ENLIVE 237 ML CAN PO SCH (08:40)
[2021-01-14 09:06] VITALS: O2SAT 96
[2021-01-14 09:22] VITALS: BP 161/78; TEMP 97.8
--- NOTE | 2021-01-14 21:16 | DS ---
Date of Discharge: 01/14/2021 Disposition: Discharged to go home. Physical Examination: HEENT: Unremarkable. Lungs: Clear to auscultation. Heart: Sounds normal. Abdomen: Soft. No guarding, rigidity, tenderness, distention. Extremities: No leg edema. Discharge Medications And Instructions: 1. Continue prior home medications. 2. Drink 1 glass of orange juice daily and eat 1 banana daily. 3. Take vancomycin 250 mg by mouth 3 times a day and prescription was sent to [facility] from my office. 4. Follow up at my office on 01/20/2021 at 11 a.m. Final Diagnoses: 1. Clostridium difficile colitis, recurrent. 2. Hypokalemia. 3. Hypertension. 4. Hyperlipidemia. 5. Allergic rhinitis. 6. Depression. 7. Insomnia. 8. Diverticulosis. 9. Benign prostatic hypertrophy. 10. Gastroesophageal reflux disease. 11. Lumbar spinal stenosis. Laboratory Data: Today's blood work shows sodium 143, potassium 3.1, chloride 110, bicarb 28, BUN 9, creatinine 0.71, glucose 97, magnesium 1.9. Hospital Course: This is an 85-year-old very pleasant male patient, who was admitted to hospital with diarrhea and recurrence of Clostridium difficile colitis. Please see dictated H and P for more information. After the patient was evaluated in ER, he was admitted to hospital. When the patient came into the hospital, his WBC count was elevated. CAT scan of the abdomen showed pancolitis, no evidence of any acute surgical finding, no complications. He was initially started on clear liquid diet. Subsequently, we advanced his diet to regular diet. Upon admission, he was started on IV vancomycin and next day we changed it to oral vancomycin 250 mg 3 times a day. He is tolerating that very well. Overall, he is feeling better. He still has diarrhea, but that has improved. Yesterday's potassium was 2.9 and potassium replacement was given as per electrolyte replacement protocol. This morning, potassium is still low and 40 mEq potassium chloride will dose was ordered and I have advised him to drink oranges daily and every day as a potassium replacement. Once the diarrhea improves, his potassium should improve as well. He had 2 bowel movements overnight and he overall feels better. No abdominal pain. No nausea, vomiting. He is tolerating diet well. I will see him next week at office for followup. ROBBIN/MODL Voice ID: [id number] Report ID: [id number]
== END 2021-01-14 11:26 | disposition home or self-care (01) | DRG 373 ==
LOC: ER 09:15 → ERHOLD 10:54 → 4TH 20:15
PROVIDERS: ADMIT Internal Medicine; ATTEND Internal Medicine
DX: A04.71 Enterocolitis due to Clostridium difficile, recurrent (principal); D64.9 Anemia, unspecified; E87.6 Hypokalemia; I10 Essential (primary) hypertension; F32.9 Major depressive disorder, single episode, unspecified; G47.00 Insomnia, unspecified; E78.5 Hyperlipidemia, unspecified; J30.9 Allergic rhinitis, unspecified; K57.90 Diverticulosis of intestine, part unspecified, without perforation or abscess without bleeding; N40.0 Benign prostatic hyperplasia without lower urinary tract symptoms; K21.9 Gastro-esophageal reflux disease without esophagitis; M48.061 Spinal stenosis, lumbar region without neurogenic claudication; Z20.822 Contact with and (suspected) exposure to COVID-19
CPT/HCPCS: 0240U; 36415; 74177; 80048; 80076; 80202; 83690; 83735; 84132; 85025; 87324; 87449; 96374; 96375; 99284; J1200; J3480; J7040; J7050; J7799; Q9967